=== PATIENT | female | born 1945 | race Caucasian/White ===

== ENCOUNTER 2016-10-23 06:19 | Inpatient (IN) | payer MEDICARE ==
[2016-10-23] MEDS ORDERED: Albuterol/Ipratropium Neb 3 ML NEB NEB ONE (06:27)
--- NOTE | 2016-10-23 06:27 | EDPRACDOC ---
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 Mode Of Arrival: Ambulance Home Medications: Home Medications Albuterol Sulfate [Proair Hfa] 2 puff INH Q4H PRN 11/09/14 Fluticasone/Salmeterol [Advair 500-50 Diskus] 1 inh INH BID 11/09/14 Omeprazole [Prilosec] 40 mg PO QAM 11/09/14 Furosemide [Lasix] 40 mg PO DAILY #30 tablet 11/16/14 Montelukast Sodium [Singulair] 10 mg PO HS #30 tablet 11/16/14 Nitroglycerin Sublingual Tab [NTG (NitroStat Sublingual Tab)] 0.4 mg SL PRN PRN #100 tablet 11/16/14 Diltiazem HCl [Cardizem] 2 tab PO TID 09/17/15 Metoclopramide HCl [Reglan] 1 tab PO QID 09/17/15 Azithromycin [Zithromax Tri-Torrey] 500 mg PO DAILY #3 tablet 09/21/15 Cefdinir [Omnicef] 300 mg PO BID #10 cap 09/21/15 Lisinopril [Prinivil] 10 mg PO DAILY #30 tablet 09/21/15 Lorazepam [Ativan] 0.5 mg PO TID PRN #30 tablet 09/21/15 Prednisone [Sterapred DS 10 mg/12 day pack] 48 tab PO DIR #1 pack 09/21/15 Probiotic Blend [Wendie Q] 1 tab PO BIDLS #60 tablet 09/21/15 Varenicline [Chantix] 1 mg PO BID #60 tablet 09/21/15 Allergies/Adverse Reactions: Allergies Allergy/AdvReac Type Severity Reaction Status Date / Time No Known Allergies Allergy Verified 09/18/15 00:37 - History of Present Illness Onset: COUPLE OF DAYS Relevant History: Reports: COPD (SEVERE), Heart Failure (CHF) Cough: Reports: Productive, Green Rhinorrhea: Reports: Clear Ear Symptoms: Reports: Earache SOB Worsens with: Reports: Exertion, Movement, Anxiety, Coughing SOB Improves with: Reports: Sitting up, Inhaler, Rest Recently treated infections:: Denies: Otitis media, Pneumonia, URI Associated Signs and symptoms: Reports: Cough, Fever, Nasal Symptoms, Myalgia - Treatment Prior to ED Arrival Reported SOLUMEDROL, ALB, CPAP ED Past Medical History - History Reviewed Yes Nurses notes reviewed and agree except as marked - Patient Medical History Cardiac History: Reports: Hypertension, Congestive Heart Failure, Heart Attack ( 5 years ago) Respiratory History: Reports: Asthma, COPD GI/ History: Reports: Gastroesophageal Reflux Psychological History: Reports: Anxiety. Denies: Depression, Bipolar Disorder, Substance Use Disorder - Family Medical History Reports: Hypertension (mother and father), Cancer (GRANDMOTHER,TWIN SISTER- BREAST CA), Cardiac Disorders (Father). Denies: Diabetes - Social Medical History Smoking Status: Light tobacco smoker (less than 5/day) (formerly heavy tobacco use) Social History: Denies: Substance Use Disorder ETOH: None Substance Abuse: None Lives In: Home EDM Review of Systems - Review of Systems ROS Negative Except as Marked: Yes All systems reviewed and were negative except as marked ROS Unobtainable: Yes Review of systems cannot be obtained due to the patient's medical condition (DIFFICULT GIVEN SIGNIF RESP DISTRESS) - Physical Exam Constitutional: Alert, Cachectic (APPEARS OLDER THAN STATED AGE), Distress, Restless, Other (ON CPAP EMS) Last recorded Vital Signs: Oxygen Pulse Oxygen Saturation O2 Device Oxygen Flow Rate Fraction of Inspired Oxygen ( FIO2) - HEENT Head: Normal Eye Exam: Normal Oropharynx: Normal. negative: Membranes Dry Neck: Normal. negative: Edema - Respiratory/Cardiovascular Respiratory: Accessory Muscle Use, Diminished, Rhonchi, Tachypnea, Wheezes, Other (ON CPAP) Cardiovascular: Tachycardia. negative: Diastolic murmur, Systolic murmur - GI Auscultation: Normal Palpation: Normal Tenderness: Non tender - Musculoskeletal Back: Normal Extremities: negative: Pedal Edema - Integumentary Skin: Warm, Diaphoretic - Neurologic Memory Impaired: Normal Motor Function: Normal Mood Description: Anxious, Appropriate Thought: Coherent ED SOB MDM - Re-evaluation Re-evaluation 3 Re-evaluation Time: 07:07 (BP DOWN, RESP STATUS IMPROVED, NO CURRENT INDICATION FOR INTUBATION) - Results Result Diagrams: 10/23/16 06:25 10/23/16 06:25 - EKG EKG #1 EKG Time: 06:25 -: Yes EKG interpreted by me Rate: bpm: 141 Elizabeth: Normal Rhythm: ST Block: None Hypertrophy: None ST: Normal ED Critical Care Note - Critical Care Note Total Time (mins): 35 Comments: Due to the presence of and / or the risk of deterioration, my attendance to this patient required critical care time, including assessment/reassessment, documentation, ordering and interpreting ancillary studies, discussion with ED staff and consultants,patient and family, and excludes time spent on separately billable procedures. 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
[2016-10-23 06:36] LABS: ALLEN'S TEST PASS; BEb 8.5 (+/- 2)
[2016-10-23 06:37] LABS: ABG Draw Site Left Radial
[2016-10-23 06:56] LABS: AUTOMATED BASOPHIL 0.3 % (0-2); AUTOMATED EOSINOPHIL 0.3 % (0-5); AUTOMATED LYMPH 16.8 % (17-44); AUTOMATED MONOCYTE 14.2 % (3-10); AUTOMATED NEUTROPHIL 68.4 % (45-76); MPV 7.9 fL (7.4-10.4)
[2016-10-23 06:59] LABS: BLOOD UREA NITROGEN 12 MG/DL (7-17); CALCIUM 9.1 MG/DL (8.4-10.2); CALCULATED OSMOLALITY 243 MOs/Kg (270-290); CHLORIDE 83 mEq/L (98-107); CPK TOTAL WITH POSSIBLE MB 83 IU/L (30-134); GLUCOSE 118 MG/DL (70-99); SODIUM LEVEL 125 mEq/L (137-146); TOTAL PROTEIN 7.1 G/DL (6.3-8.2)
[2016-10-23 07:02] LABS: PARTIAL THROMB. TIME 29.6 SEC (22-35)
[2016-10-23] MEDS ORDERED: ACETAMINOPHEN 325 MG/TAB TABLET PO ONE (07:08)
--- NOTE | 2016-10-23 07:14 | DIRPT ---
CLINICAL DATA: Patient with history of sepsis. Shortness of breath. EXAM: PORTABLE CHEST 1 VIEW COMPARISON: Chest radiograph 09/20/2015. FINDINGS: Multiple monitoring leads overlie the patient. Catheter tubing projects over the right dinh thorax, likely external to the patient. Stable cardiac and mediastinal contours. No large area of pulmonary consolidation. Upper lung emphysematous change. Bibasilar bronchovascular crowding versus atelectasis. No pleural effusion or pneumothorax. IMPRESSION: Catheter tubing overlying the right dinh thorax, likely external to the patient. Recommend clinical correlation. No acute cardiopulmonary process. Electronically Signed By: Bal Martin M.D. On: 10/23/2016 07:12
[2016-10-23] MEDS ORDERED: AZITHROMYCIN 500 MG in D5W 250 ML IV ONE (07:16)
[2016-10-23] MEDS ORDERED: CEFTRIAXONE 1 GM in D5W 100 ML IV ONE (07:16)
[2016-10-23] MEDS ORDERED: METOCLOPRAMIDE 10 MG/2 ML VIAL IV PRN (07:31)
[2016-10-23] MEDS ORDERED: BISACODYL 10 MG SUPP PR PRN (07:31)
[2016-10-23] MEDS ORDERED: ACETAMINOPHEN 325 MG/TAB TABLET PO PRN (07:31)
[2016-10-23] MEDS ORDERED: SENNA CONCENTRATE TAB PO PRN (07:31)
[2016-10-23] MEDS ORDERED: ACETAMINOPHEN 325 MG SUPP PR PRN (07:31)
[2016-10-23] MEDS ORDERED: TUSSIONEX 5 ML ORAL SYRINGE PO PRN (07:31)
[2016-10-23] MEDS ORDERED: PROMETHAZINE 25 MG/ML VIAL IV PRN (07:31)
[2016-10-23] MEDS ORDERED: BENZONATATE 100 MG PERLES PO PRN (07:31)
[2016-10-23] MEDS ORDERED: ACETAMINOPHEN 325 MG SUPP PR ONE (07:47)
[2016-10-23] MEDS ORDERED: ACETAMINOPHEN 650 MG SUPP PR ONE (07:47)
--- NOTE | 2016-10-23 08:41 | HISTPHYS ---
- Chief Complaint Shortness of breath coughing up white material increased temperature and shaking chills all starting Saturday 3 days ago - History of Present Illness Patient very pleasant 71-year-old white female lives at home with her who comes into the emergency room today with increased shortness breath over the past 3 days complaining of chills and was unable to sleep last night due to shortness breath. She also has a history of diastolic CHF and has to sleep on 3 pillows. Unfortunately she still smokes cigarettes and states that still smoke a pack a month. She tells me that the Chantix is been the most effective item she has used to help her quit smoking. She has not taking any Chantix for several months. She has a history of diastolic CHF in addition to severe his COPD. - Medical History Cardiac History: Reports: Hypertension, Congestive Heart Failure, Heart Attack ( 5 years ago) Respiratory History: Reports: Asthma, COPD GI/ History: Reports: Gastroesophageal Reflux Musculoskeletal History: Reports: No Significant History Systemic History: Reports: No Significant History Neurological History: Reports: No Significant History Psychological History: Reports: Anxiety. Denies: Depression, Bipolar Disorder, Substance Use Disorder - Surgical History Reports: No Significant History - Medictions/Allergies Allergies No Known Allergies Allergy (Verified 10/23/16 07:25) Current Medication List: Reviewed Home Medications Albuterol Sulfate [Proair Hfa] 2 puff INH Q4H PRN 11/09/14 Fluticasone/Salmeterol [Advair 500-50 Diskus] 1 puff INH BID 11/09/14 Omeprazole [Prilosec] 40 mg PO QAM 11/09/14 Furosemide [Lasix] 40 mg PO DAILY #30 tablet 11/16/14 Montelukast Sodium [Singulair] 10 mg PO HS #30 tablet 11/16/14 Metoclopramide HCl [Reglan] 10 mg PO QID 09/17/15 Lisinopril [Prinivil] 10 mg PO DAILY #30 tablet 09/21/15 Lorazepam [Ativan] 0.5 mg PO TID PRN #30 tablet 09/21/15 Albuterol/Ipratropium Neb [Duoneb] 3 ml NEB QID 10/23/16 Diltiazem HCl [Cardizem] 60 mg PO TID 10/23/16 Nebulizer [Erapid Nebulizer] 1 each MC .UNKNOWN 10/23/16 Nitroglycerin Sublingual Tab [NTG (NitroStat Sublingual Tab)] 0.4 mg SL Q5MX3 PRN 10/23/16 Prednisone [Deltasone, Orasone] 10 mg PO . DIR SEE COMMENTS PRN 10/23/16 - Family History Reports: Hypertension (mother and father), Cancer (GRANDMOTHER,TWIN SISTER- BREAST CA), Cardiac Disorders (Father). Denies: Diabetes - Social History Travel Outside of [place] in the Last 3 Months?: No Lives: with Spouse Smoking Status: Light tobacco smoker (less than 5/day) (formerly heavy tobacco use) Social History: Denies: Alcohol Use, Substance Use Disorder - Review of Systems Constitutional: Chills, Fever, Fatigue, Weakness Eyes: No Symptoms Reported (No blurry vision, visual changes, eye pain, or eye redness.) Ears: No Symptoms Reported Nose: No Symptoms Reported (No nasal discharge/congestion or bleeding) Mouth: No Symptoms Reported (No oropharyngeal lesions or erythema) Throat/Neck: No Symptoms Reported Respiratory: Cough, Shortness of Breath, Wheezing, Sputum (White sputum) Cardiovascular: Edema (Trace), Orthopnea, PND. negative: Cyanosis Gastrointestinal: Heartburn Genitourinary: No Symptoms Reported (No dysuria or hematuria.) Neurological: Weakness Musculoskeletal:: No Symptoms Reported Integumentary: No Symptoms Reported (no rashes or lesions) Allergic/Immunologic: No Symptoms Reported (no rashes or lesions) Hematologic: No Symptoms Reported (No chronic anemia, bleeding, or easy bruising.), Other (Lymphatics- no lymph node swelling or pain.) Endocrine: No Symptoms Reported (No thyroid issues, polyuria, or polydipsia.) Psychiatric: Anxiety - Physical Exam Vital Signs: Initial Vitals Respiratory Rate 34 H 10/23/16 06:22 Pulse Oxygen Saturation 90 L 10/23/16 06:22 Constitutional: Alert, Distress, Restless Oriented to: Time, Person, Place - HEENT Head: Normal (normocephalic, atraumatic.), Other (No cervical lymphadenopathy. No supraclavicular lymphadenopathy. Neck: No palpable mass, supple , trachea midline.) Eye: Normal (pupils equal, reactive to light, and round; EOMI, Sclera white) Oropharynx: Normal (Pharynx: Moist without exudate,Gums-no swelling, No oropharyngeal lesions or erythema, Mucous membranes are dry.) ENT EAC: Normal (No oropharyngeal lesions or erythema. Mucous membranes are dry. ) TMJ: Normal Nose: No Symptoms Reported (septum midline, Nares patent, without discharge or bleeding.) Respiratory: Diminished, Tachypnea, Wheezes. negative: Rales, Rhonchi Cardiovascular: Tachycardia. negative: Irregular, Diastolic murmur, Systolic murmur, Gallop/S3, Gallop/S4 - GI Auscultation: Normal (normal active sounds) Palpation: Normal (Soft,non distended,nontender. No hepatosplenomegaly.) Tenderness: Non tender (No rebound or guarding) Patel's Sign: Negative - Musculoskeletal Back: Normal (Non-Tender) Extremities: Normal (Normal tone, DP pulses 2+ bilaterally, No cyanosis or edema bilaterally, FROM bilaterally.) Spine: non-tender - Integumentary Skin: Normal (Clean, dry, and intact. No rashes. No lesions.) Lymphatics: Normal (No cervical lymphadenopathy. No supraclavicular lymphadenopathy.) - Neurologic Memory Impaired: Normal Motor Function: negative: Normal (Generalized weakness) Cranial Nerve: Normal (CN II-XII intact sensation, strength 5/5) Cerebellar: Normal. negative: Ataxia, Past-Pointing, Tremor Mood Description: Normal (Fully oriented. Normal and appropriate affect.) Thought: Coherent Perception: Normal (Normal and appropriate affect.) - Focused CV Perfusion Exam Vital Signs: Last Vital Signs Temp 100 F 10/23/16 06:23 Pulse 125 H 10/23/16 08:12 Resp 22 10/23/16 08:12 BP 138/88 10/23/16 08:12 Pulse Ox 92 10/23/16 08:12 - Lab Results 10/23/16 06:25 10/23/16 06:25 Laboratory Results - last 24 hr 10/23/16 10/23/16 10/23/16 06:25 06:25 06:25 WBC 8.6 RBC 4.45 Hgb 12.5 Hct 38.2 MCV 86 MCH 28.1 MCHC 32.7 L RDW 13.6 Plt Count 370 MPV 7.9 Neut % (Auto) 68.4 Lymph % (Auto) 16.8 L [place] % (Auto) 14.2 H Eos % (Auto) 0.3 Baso % (Auto) 0.3 Absolute Neuts (auto) 5.85 Absolute Lymphs (auto) 1.38 PT INR APTT Puncture Site pH pCO2 pO2 HCO3 Total CO2 Base Excess Vent Mode FiO2 % Specimen Drawn By Sodium 125 L Potassium 4.5 Chloride 83 L Carbon Dioxide 37 H Anion Gap 10 BUN 12 Creatinine 0.40 L Estimated GFR (MDRD) > 60 Glucose 118 H Calculated Osmolality 243 L Lactic Acid 0.7 Calcium 9.1 Total Bilirubin 0.4 AST 24 ALT 27 Alkaline Phosphatase 97 Creatine Kinase 83 Troponin I 0.01 Cpe-U-Fetdlexactz Pept 301 Total Protein 7.1 Albumin 4.1 10/23/16 10/23/16 06:25 06:33 WBC RBC Hgb Hct MCV MCH MCHC RDW Plt Count MPV Neut % (Auto) Lymph % (Auto) [place] % (Auto) Eos % (Auto) Baso % (Auto) Absolute Neuts (auto) Absolute Lymphs (auto) PT 10.0 INR 1.0 APTT 29.6 Puncture Site Left radial pH 7.280 L pCO2 82.0 H* pO2 81.0 HCO3 38.5 H Total CO2 41.0 H Base Excess 8.5 H Vent Mode Bipap 12/6 FiO2 % 40 Specimen Drawn By Rakma Sodium Potassium Chloride Carbon Dioxide Anion Gap BUN Creatinine Estimated GFR (MDRD) Glucose Calculated Osmolality Lactic Acid Calcium Total Bilirubin AST ALT Alkaline Phosphatase Creatine Kinase Troponin I [id number] Pept Total Protein Albumin - Diagnostic Findings Chest x-ray shows emphysema and bibasilar atelectasis - Assessment (1) Acute respiratory failure J96.00 - ACUTE RESPIRATORY FAILURE, UNSP W HYPOXIA OR HYPERCAPNIA Acute Present on Admission: Yes Qualifiers: Respiratory failure complication: hypercapnia Qualified Code(s): J96.02 - Acute respiratory failure with hypercapnia Acute respiratory failure with hypercarbia requiring BiPAP. IV steroid Zosyn Levaquin as she had Rocephin and Zithromax September with her last COPD flare 1 month & 2 days ago. Solu-Medrol and intensive respiratory therapy will be necessary. Will need to wean her FiO2 to an O2 sat closer to 88%. (2) Community acquired bacterial pneumonia J15.9 - UNSPECIFIED BACTERIAL PNEUMONIA Acute Present on Admission: Yes Zosyn Levaquin ordered with probiotic. (3) Acute exacerbation of chronic obstructive airways disease J44.1 - CHRONIC OBSTRUCTIVE PULMONARY DISEASE W (ACUTE) EXACERBATION Acute Present on Admission: Yes IV antibiotics probiotics and steroids are ordered with nebulizer therapy. (4) Diastolic CHF I50.30 - UNSPECIFIED DIASTOLIC (CONGESTIVE) HEART FAILURE Chronic Present on Admission: Yes Qualifiers: Congestive heart failure chronicity: chronic Qualified Code(s): I50.32 - Chronic diastolic (congestive) heart failure She is on oral diuretic compensated continue current medication. (5) Hypertension I10 - ESSENTIAL (PRIMARY) HYPERTENSION Chronic Present on Admission: Yes Qualifiers: Hypertension type: essential hypertension Qualified Code(s): I10 - Essential (primary) hypertension Stable continue current medication KATERINE-inhibitor, Cardizem with Lasix (6) Hyponatremia E87.1 - HYPO-OSMOLALITY AND HYPONATREMIA Acute Present on Admission: Yes (7) Leukocytosis D72.829 - ELEVATED WHITE BLOOD CELL COUNT, UNSPECIFIED Acute Qualifiers: Leukocytosis type: bandemia Qualified Code(s): D72.825 - Bandemia (8) Tobacco abuse Z72.0 - TOBACCO USE Acute Unfortunately she continues to smoke although claims to only be smoking a pack cigarettes a month. I have advised her once again she needs to stop and will discuss this further during hospitalization when she is more receptive and less critically ill. (9) Gastroesophageal reflux disease K21.9 - GASTRO-ESOPHAGEAL REFLUX DISEASE WITHOUT ESOPHAGITIS Chronic Present on Admission: Yes Qualifiers: Esophagitis presence: esophagitis presence not specified Qualified Code(s) : K21.9 - Gastro-esophageal reflux disease without esophagitis Proton pump inhibition twice daily (10) Acute respiratory distress R06.00 - DYSPNEA, UNSPECIFIED Acute Present on Admission: Yes Acutely short of breath today and adjustments made in her BiPAP according to her needs. IV medications ordered. - Plan Due to the presence of and / or the risk of deterioration, my attendance to this patient required critical care time, including assessment/reassessment, documentation, ordering and interpreting ancillary studies, discussion with staff and consultants,patient and family, and excludes time spent on separately billable procedures. This individual is critically ill and in danger of dying. Case Care Discussed with: Patient, Nursing Staff, Resource Management Total Time: Critical care time spent 1 hour and 22 minutes Critical Care: Yes Code: 291 (292)
[2016-10-23] MEDS: Albuterol/Ipratropium Neb 3 ML NEB NEB SCH ×3 (08:57→19:58)
[2016-10-23] MEDS ORDERED: NITROGLYCERINE 0.4 MG TAB SL PRN (09:19)
[2016-10-23] MEDS ORDERED: Non-Formulary Medication ITEM (Omeprazole [Prilosec] 40 MG) PO SCH (09:30)
[2016-10-23] MEDS ORDERED: FLUTICASONE/SALMETEROL 500/50 DISKUS INH SCH (10:00)
[2016-10-23] MEDS: Levofloxacin 750 mg/150 ml D5W 750 MG/150 ML RTU IV SCH (11:05)
[2016-10-23] MEDS: FUROSEMIDE 40 MG TAB PO SCH (11:05)
[2016-10-23] MEDS: NS/KCl 20 mEq 1,000 ML IV SCH (11:05)
[2016-10-23] MEDS: METHYLPREDNISOLONE 125 MG/2 ML VIAL IV SCH ×2 (11:06→17:21)
[2016-10-23] MEDS: PANTOPRAZOLE 40 MG TAB PO SCH (11:06)
[2016-10-23] MEDS: LISINOPRIL 10 MG TAB PO SCH (11:06)
[2016-10-23] MEDS: METOCLOPRAMIDE 10 MG TAB PO SCH ×3 (11:07→20:45)
[2016-10-23] MEDS: PROBIOTIC BLEND TAB PO SCH ×2 (11:07→17:21)
[2016-10-23] MEDS: PIPERACILLIN AND TAZOBACTAM 4.5 GM in D5W 100 ML IV SCH ×2 (13:00→17:21)
[2016-10-23 13:28] LABS: LEUKOCYTES/URINE NEG (NEGATIVE); NITRITE/URINE NEG (NEGATIVE); URINE OCCULT BLOOD NEG (NEG/TRACE)
[2016-10-23] MEDS ORDERED: Vaccine Screening Complete SCH (14:00)
[2016-10-23] MEDS: DILTIAZEM 60 MG TAB PO SCH ×2 (15:09→20:45)
[2016-10-23] MEDS: ENOXAPARIN 40 MG/0.4 ML PFS SQ SCH (17:21)
[2016-10-23] MEDS: LORAZEPAM 0.5 MG TAB PO PRN (17:38)
[2016-10-23] MEDS: FLUTICASONE/SALMETEROL 500/50 DISKUS INH SCH (19:59)
[2016-10-23] MEDS: MONTELUKAST SODIUM 10 MG TAB PO SCH (20:44)
[2016-10-23] MEDS: ZOLPIDEM TARTRATE 5 MG TAB PO PRN (20:51)
[2016-10-24] MEDS: Albuterol/Ipratropium Neb 3 ML NEB NEB SCH ×4 (01:04→20:11)
[2016-10-24] MEDS: METHYLPREDNISOLONE 125 MG/2 ML VIAL IV SCH ×3 (01:11→17:33)
[2016-10-24] MEDS: PIPERACILLIN AND TAZOBACTAM 4.5 GM in D5W 100 ML IV SCH ×3 (01:12→17:32)
[2016-10-24] MEDS: PANTOPRAZOLE 40 MG TAB PO SCH (04:52)
[2016-10-24] MEDS: DILTIAZEM 60 MG TAB PO SCH ×3 (04:52→19:53)
[2016-10-24] MEDS: LORAZEPAM 0.5 MG TAB PO PRN (04:54)
[2016-10-24] MEDS: ALBUTEROL 0.083% 3 ML NEB NEB PRN (05:04)
[2016-10-24 05:36] LABS: AUTOMATED BASOPHIL 0.2 % (0-2); AUTOMATED EOSINOPHIL 0.1 % (0-5); AUTOMATED LYMPH 10.1 % (17-44); AUTOMATED NEUTROPHIL 79.6 % (45-76); MPV 7.6 fL (7.4-10.4)
[2016-10-24] MEDS: NS/KCl 20 mEq 1,000 ML IV SCH ×2 (08:02→17:31)
[2016-10-24] MEDS: LISINOPRIL 10 MG TAB PO SCH (08:04)
[2016-10-24] MEDS: ACETAZOLAMIDE 250 MG TAB PO SCH (08:04)
[2016-10-24] MEDS: METOCLOPRAMIDE 10 MG TAB PO SCH ×4 (08:04→19:53)
[2016-10-24] MEDS: Levofloxacin 750 mg/150 ml D5W 750 MG/150 ML RTU IV SCH (08:05)
[2016-10-24] MEDS: FUROSEMIDE 40 MG TAB PO SCH (08:05)
[2016-10-24] MEDS: FLUTICASONE/SALMETEROL 500/50 DISKUS INH SCH ×2 (08:29→20:12)
--- NOTE | 2016-10-24 09:59 | GENMEDPROG ---
Chief Complaint: sob better Notes Reviewed: Yes Events from last night noted and discussed with Clinical Staff Current Medication List: Reviewed DVT Prophylaxis: Yes - Physical Examination Vital Signs and I&O: Last Vital Signs Temp 97.6 F 10/24/16 07:28 Pulse 91 10/24/16 08:00 Resp 20 10/24/16 08:00 BP 128/60 10/24/16 07:28 Pulse Ox 95 10/24/16 08:00 Oxygen Pulse Oxygen Saturation 95 O2 Device Nasal Cannula Oxygen Flow Rate 2 Fraction of Inspired Oxygen ( 40 FIO2) Intake & Output 10/21/16 10/22/16 10/23/16 10/24/16 23:59 23:59 23:59 23:59 Intake Total 830 280 Output Total 700 800 Balance 130 -520 Patient's weight 71.94 kg 73.119 kg General: Alert, Oriented x3, No acute distress, Well appearing, Well nourished HEENT: Normal (Normocephalic, atraumatic;EOMI.Sclera white, Nares patent, without discharge or bleeding. No oropharyngeal lesions or erythema. Mucous membranes are dry.) Neck: Non-tender, Full range of motion, Normal Trachea alignment, Normal inspection (No cervical lymphadenopathy. No supraclavicular lymphadenopathy.), No Masses palpable, Supple Lymphatics: Normal (No cervical lymphadenopathy. No supraclavicular lymphadenopathy.) Respiratory: Diminished, Rhonchi, Tachypnea, Wheezes (occas). negative: Rales Cardiovascular: Regular rate and rhythm (No bradycardia or tachycardia), Normal S1, No Gallops,Rubs/Murmurs, Normal S2, Good Pedal Pulses (DP pulses 2+ bilaterally) GI: Normal bowel sounds (normal active sounds), Soft (non-distended), Non tender , No hepatospenomegaly, No masses Extremities/Musculoskeletal: Normal pulses (DP pulses 2+ bilaterally) Skin: Warm,Dry and Intact, No rashes, No significant lesion Neurological: Strength at 5/5 X4 ext (Motor 5/5 throughout.), Normal tone, Cranial nerves 3-12 NL ( 2-12 grossly intact.) Lab/DI/Studies Reviewed: 10/24/16 05:20 10/23/16 06:25 Laboratory Results - last 24 hr 10/24/16 05:20 WBC 4.5 RBC 4.30 Hgb 12.0 Hct 36.2 MCV 84 MCH 27.9 MCHC 33.1 RDW 13.3 Plt Count 321 MPV 7.6 Neut % (Auto) 79.6 H Lymph % (Auto) 10.1 L [place] % (Auto) 10.0 Eos % (Auto) 0.1 Baso % (Auto) 0.2 Absolute Neuts (auto) 3.56 Absolute Lymphs (auto) 0.45 L - Assessment (1) Acute respiratory failure Acute J96.00 - ACUTE RESPIRATORY FAILURE, UNSP W HYPOXIA OR HYPERCAPNIA Qualifiers: Respiratory failure complication: hypercapnia Qualified Code(s): J96.02 - Acute respiratory failure with hypercapnia Comment/Plan: Acute respiratory failure with hypercarbia requiring BiPAP. IV steroid Zosyn Levaquin as she had Rocephin and Zithromax September with her last COPD flare 1 month & 2 days ago. Solu-Medrol and intensive respiratory therapy will be necessary. Will need to wean her FiO2 to an O2 sat closer to 88%. (2) Community acquired bacterial pneumonia Acute J15.9 - UNSPECIFIED BACTERIAL PNEUMONIA Comment/Plan: Zosyn Levaquin ordered with probiotic. (3) Acute exacerbation of chronic obstructive airways disease Acute J44.1 - CHRONIC OBSTRUCTIVE PULMONARY DISEASE W (ACUTE) EXACERBATION Comment/Plan: IV antibiotics probiotics and steroids are ordered with nebulizer therapy. (4) Diastolic CHF Chronic I50.30 - UNSPECIFIED DIASTOLIC (CONGESTIVE) HEART FAILURE Qualifiers: Congestive heart failure chronicity: chronic Qualified Code(s): I50.32 - Chronic diastolic (congestive) heart failure Comment/Plan: She is on oral diuretic compensated continue current medication. (5) Hypertension Chronic I10 - ESSENTIAL (PRIMARY) HYPERTENSION Qualifiers: Hypertension type: essential hypertension Qualified Code(s): I10 - Essential (primary) hypertension Comment/Plan: Stable continue current medication KATERINE-inhibitor, Cardizem with Lasix (6) Hyponatremia Acute E87.1 - HYPO-OSMOLALITY AND HYPONATREMIA (7) Leukocytosis Acute D72.829 - ELEVATED WHITE BLOOD CELL COUNT, UNSPECIFIED Qualifiers: Leukocytosis type: bandemia Qualified Code(s): D72.825 - Bandemia (8) Tobacco abuse Acute Z72.0 - TOBACCO USE Comment/Plan: Unfortunately she continues to smoke although claims to only be smoking a pack cigarettes a month. I have advised her once again she needs to stop and will discuss this further during hospitalization when she is more receptive and less critically ill. (9) Gastroesophageal reflux disease Chronic K21.9 - GASTRO-ESOPHAGEAL REFLUX DISEASE WITHOUT ESOPHAGITIS Qualifiers: Esophagitis presence: esophagitis presence not specified Qualified Code(s) : K21.9 - Gastro-esophageal reflux disease without esophagitis Comment/Plan: Proton pump inhibition twice daily (10) Acute respiratory distress Acute R06.00 - DYSPNEA, UNSPECIFIED Comment/Plan: Acutely short of breath today and adjustments made in her BiPAP according to her needs. IV medications ordered. Case Care Discussed with: Patient, Nursing Staff, Resource Management Education/Counseling Given To: Patient, Family Member Education/Counseling Given Regarding: Diagnosis Total Time: 37 min Critical Care: No
[2016-10-24] MEDS: PROBIOTIC BLEND TAB PO SCH ×2 (12:20→17:32)
[2016-10-24] MEDS: ENOXAPARIN 40 MG/0.4 ML PFS SQ SCH (17:33)
[2016-10-24] MEDS: MONTELUKAST SODIUM 10 MG TAB PO SCH (19:53)
[2016-10-24] MEDS: ZOLPIDEM TARTRATE 5 MG TAB PO PRN (19:58)
[2016-10-25] MEDS: NS/KCl 20 mEq 1,000 ML IV SCH ×2 (01:32→04:57)
[2016-10-25] MEDS: METHYLPREDNISOLONE 125 MG/2 ML VIAL IV SCH ×4 (01:34→20:10)
[2016-10-25] MEDS: PIPERACILLIN AND TAZOBACTAM 4.5 GM in D5W 100 ML IV SCH ×4 (01:34→21:28)
[2016-10-25] MEDS: Albuterol/Ipratropium Neb 3 ML NEB NEB SCH ×4 (01:43→19:41)
[2016-10-25 04:27] LABS: ALLEN'S TEST PASS; BEb 13.8 (+/- 2); TCO2 49.9 MMOL/L (23-27)
[2016-10-25 04:29] LABS: ABG Draw Site Right Radial
[2016-10-25 04:30] LABS: BI-PAP 14/7 cm H2O
[2016-10-25] MEDS: PANTOPRAZOLE 40 MG TAB PO SCH (05:00)
[2016-10-25] MEDS: DILTIAZEM 60 MG TAB PO SCH ×3 (05:00→20:09)
[2016-10-25 05:56] LABS: BLOOD UREA NITROGEN 11 MG/DL (7-17); CALCIUM 9.2 MG/DL (8.4-10.2); CALCULATED OSMOLALITY 251 MOs/Kg (270-290); CHLORIDE 86 mEq/L (98-107); GLUCOSE 147 MG/DL (70-99); SODIUM LEVEL 129 mEq/L (137-146)
[2016-10-25 06:29] LABS: AUTOMATED BASOPHIL 0.1 % (0-2); AUTOMATED LYMPH 6.2 % (17-44); AUTOMATED MONOCYTE 9.7 % (3-10); MPV 7.9 fL (7.4-10.4)
[2016-10-25] MEDS: FLUTICASONE/SALMETEROL 500/50 DISKUS INH SCH ×2 (08:37→19:43)
[2016-10-25] MEDS: Levofloxacin 750 mg/150 ml D5W 750 MG/150 ML RTU IV SCH (09:17)
[2016-10-25] MEDS: FUROSEMIDE 40 MG TAB PO SCH (09:20)
[2016-10-25] MEDS: METOCLOPRAMIDE 10 MG TAB PO SCH ×4 (09:20→20:09)
[2016-10-25] MEDS: PROBIOTIC BLEND TAB PO SCH ×2 (09:20→17:06)
[2016-10-25] MEDS: LISINOPRIL 10 MG TAB PO SCH (09:22)
[2016-10-25] MEDS: LORAZEPAM 0.5 MG TAB PO PRN (11:42)
[2016-10-25] MEDS ORDERED: DILTIAZEM 25 MG/5 ML VIAL IV ONE (12:30)
[2016-10-25] MEDS ORDERED: ACETAZOLAMIDE 500 MG IV ONE (12:30)
[2016-10-25] MEDS ORDERED: WATER 10 ML ONE (13:06)
[2016-10-25] MEDS ORDERED: STERILE WATER FOR INJ IV ONE (14:00)
[2016-10-25] MEDS: FUROSEMIDE 40 MG/4 ML VIAL IV SCH ×2 (15:21→21:28)
[2016-10-25 15:50] LABS: LEUKOCYTES/URINE NEG (NEGATIVE); NITRITE/URINE NEG (NEGATIVE); URINE OCCULT BLOOD NEG (NEG/TRACE); WBC/URINE 0-2 (0-5)
[2016-10-25] MEDS ORDERED: LORAZEPAM 2 MG/ML VIAL IV ONE (16:15)
--- NOTE | 2016-10-25 16:25 | DIRPT ---
CLINICAL DATA: Respiratory distress EXAM: PORTABLE CHEST - 1 VIEW COMPARISON: 10/23/2016 FINDINGS: Cardiac shadow is within normal limits. The lungs are well aerated bilaterally. No focal infiltrate is seen. Persistent aortic calcifications are seen. No bony abnormality is noted. IMPRESSION: No acute abnormality seen. Electronically Signed By: Mateo Solis M.D. On: 10/25/2016 16:22
[2016-10-25 16:26] LABS: ALLEN'S TEST PASS; BEb 17.1 (+/- 2); TCO2 47.2 MMOL/L (23-27)
[2016-10-25 16:31] LABS: ABG Draw Site Left Radial
[2016-10-25 16:32] LABS: MODE BIPAP 18/6 RATE
[2016-10-25] MEDS: ENOXAPARIN 40 MG/0.4 ML PFS SQ SCH (17:07)
--- NOTE | 2016-10-25 20:01 | GENMEDPROG ---
Chief Complaint: Increased shortness breath had to be placed on BiPAP the whole day Notes Reviewed: Yes Events from last night noted and discussed with Clinical Staff Current Medication List: Reviewed Currently: Reports: Cough, GARCIA, SOB DVT Prophylaxis: Yes - Physical Examination Vital Signs and I&O: Last Vital Signs Temp 97.7 F 10/25/16 16:28 Pulse 93 10/25/16 19:43 Resp 26 H 10/25/16 19:43 BP 116/59 L 10/25/16 16:28 Pulse Ox 93 10/25/16 19:43 Oxygen Pulse Oxygen Saturation 93 O2 Device BiPAP Oxygen Flow Rate 2 Fraction of Inspired Oxygen ( 452 FIO2) Intake & Output 10/22/16 10/23/16 10/24/16 10/25/16 23:59 23:59 23:59 23:59 Intake Total 830 1656 1515 Output Total 700 2125 1000 Balance 130 -469 515 Patient's weight 71.94 kg 73.119 kg 72.393 kg General: Alert, Oriented x3, No acute distress, Well appearing, Well nourished HEENT: Normal (Normocephalic, atraumatic;EOMI.Sclera white, Nares patent, without discharge or bleeding. No oropharyngeal lesions or erythema. Mucous membranes are dry.) Neck: Non-tender, Full range of motion, Normal Trachea alignment, Normal inspection (No cervical lymphadenopathy. No supraclavicular lymphadenopathy.), No Masses palpable, Supple Lymphatics: Normal (No cervical lymphadenopathy. No supraclavicular lymphadenopathy.) Respiratory: Diminished, Rhonchi, Tachypnea, Wheezes (occas). negative: Rales Cardiovascular: Regular rate and rhythm (No bradycardia or tachycardia), Normal S1, No Gallops,Rubs/Murmurs, Normal S2, Good Pedal Pulses (DP pulses 2+ bilaterally) GI: Normal bowel sounds (normal active sounds), Soft (non-distended), Non tender , No hepatospenomegaly, No masses Extremities/Musculoskeletal: Normal pulses (DP pulses 2+ bilaterally) Skin: Warm,Dry and Intact, No rashes, No significant lesion Neurological: Strength at 5/5 X4 ext (Motor 5/5 throughout.), Normal tone, Cranial nerves 3-12 NL ( 2-12 grossly intact.) Psych/Mental Status: Appropriate, Normal Affect Lab/DI/Studies Reviewed: 10/25/16 05:20 10/25/16 05:20 Laboratory Results - last 24 hr 10/25/16 10/25/16 10/25/16 04:25 05:20 05:20 WBC 8.3 RBC 4.29 Hgb 11.9 L Hct 36.8 MCV 86 MCH 27.7 MCHC 32.4 L RDW 13.8 Plt Count 344 MPV 7.9 Neut % (Auto) 84.0 H Lymph % (Auto) 6.2 L Rich % (Auto) 9.7 Eos % (Auto) 0.0 Baso % (Auto) 0.1 Absolute Neuts (auto) 6.97 Absolute Lymphs (auto) 0.50 L Puncture Site Right radial pH 7.230 L* pCO2 111.0 H* pO2 74.0 L HCO3 46.5 H Total CO2 49.9 H Base Excess 13.8 H Vent Mode FiO2 % .40 Mode BiPAP 14/7 Specimen Drawn By Baras Sodium 129 L Potassium 4.2 Chloride 86 L Carbon Dioxide 38 H Anion Gap 9 BUN 11 Creatinine 0.60 Estimated GFR (MDRD) > 60 Glucose 147 H Calculated Osmolality 251 L Calcium 9.2 Qrp-C-Hjnivsybhkl Pept Urine Color Urine Clarity Urine pH Ur Specific [place] Urine Protein Urine Glucose (UA) Urine Ketones Urine Occult Blood Urine Nitrite Urine Bilirubin Urine Urobilinogen Ur Leukocyte Esterase Urine RBC Urine WBC Hyaline Casts 10/25/16 10/25/16 10/25/16 05:20 13:07 16:15 WBC RBC Hgb Hct MCV MCH MCHC RDW Plt Count MPV Neut % (Auto) Lymph % (Auto) Rich % (Auto) Eos % (Auto) Baso % (Auto) Absolute Neuts (auto) Absolute Lymphs (auto) Puncture Site Left radial pH 7.430 pCO2 68.0 H* pO2 68.0 L HCO3 45.1 H Total CO2 47.2 H Base Excess 17.1 H Vent Mode Bipap 18/6 FiO2 % 30 Mode BiPAP Specimen Drawn By Aren Sodium Potassium Chloride Carbon Dioxide Anion Gap BUN Creatinine Estimated GFR (MDRD) Glucose Calculated Osmolality Calcium Lxv-G-Xakekhiqjji Pept 959 H Urine Color Pale yellow Urine Clarity Clear Urine pH 6.0 Ur Specific [place] 1.005 Urine Protein Neg Urine Glucose (UA) Neg Urine Ketones Neg Urine Occult Blood Neg Urine Nitrite Neg Urine Bilirubin Neg Urine Urobilinogen <2.0 Ur Leukocyte Esterase Neg Urine RBC 2-5 Urine WBC 0-2 Hyaline Casts 0-2 - Assessment (1) Acute respiratory failure Acute J96.00 - ACUTE RESPIRATORY FAILURE, UNSP W HYPOXIA OR HYPERCAPNIA Qualifiers: Respiratory failure complication: hypercapnia Qualified Code(s): J96.02 - Acute respiratory failure with hypercapnia Comment/Plan: Acute respiratory failure with hypercarbia requiring BiPAP. Feeling little worse today so adjustments made to her medications including intravenous Lasix along with IV steroid Zosyn Levaquin. Solu-Medrol and intensive respiratory therapy will be necessary. Will need to wean her FiO2 to an O2 sat closer to 88%. Diamox was administered for the hypercarbia and anxiety seems to make her more short of breath so Ativan will be increased as well. Chest x-ray fails to show any significant changes. (2) Community acquired bacterial pneumonia Acute J15.9 - UNSPECIFIED BACTERIAL PNEUMONIA Comment/Plan: Zosyn Levaquin ordered with probiotic. (3) Hyponatremia Acute E87.1 - HYPO-OSMOLALITY AND HYPONATREMIA Comment/Plan: Slightly better today. IV fluids and Lasix were administered. (4) Acute exacerbation of chronic obstructive airways disease Acute J44.1 - CHRONIC OBSTRUCTIVE PULMONARY DISEASE W (ACUTE) EXACERBATION Comment/Plan: IV antibiotics probiotics and steroids are ordered with nebulizer therapy. (5) Diastolic CHF Chronic I50.30 - UNSPECIFIED DIASTOLIC (CONGESTIVE) HEART FAILURE Qualifiers: Congestive heart failure chronicity: chronic Qualified Code(s): I50.32 - Chronic diastolic (congestive) heart failure Comment/Plan: She is on oral diuretic compensated continue current medication. (6) Hypertension Chronic I10 - ESSENTIAL (PRIMARY) HYPERTENSION Qualifiers: Hypertension type: essential hypertension Qualified Code(s): I10 - Essential (primary) hypertension Comment/Plan: Stable continue current medication KATERINE-inhibitor, Cardizem with Lasix (7) Leukocytosis Acute D72.829 - ELEVATED WHITE BLOOD CELL COUNT, UNSPECIFIED Qualifiers: Leukocytosis type: bandemia Qualified Code(s): D72.825 - Bandemia (8) Tobacco abuse Acute Z72.0 - TOBACCO USE Comment/Plan: Unfortunately she continues to smoke although claims to only be smoking a pack cigarettes a month. I have advised her once again she needs to stop and will discuss this further during hospitalization when she is more receptive and less critically ill. (9) Gastroesophageal reflux disease Chronic K21.9 - GASTRO-ESOPHAGEAL REFLUX DISEASE WITHOUT ESOPHAGITIS Qualifiers: Esophagitis presence: esophagitis presence not specified Qualified Code(s) : K21.9 - Gastro-esophageal reflux disease without esophagitis Comment/Plan: Proton pump inhibition twice daily (10) Acute respiratory distress Acute R06.00 - DYSPNEA, UNSPECIFIED Comment/Plan: Acutely short of breath today and adjustments made in her BiPAP according to her needs. IV medications ordered. Case Care Discussed with: Patient, Family, Nursing Staff, Resource Management Education/Counseling Given To: Patient, Family Member Education/Counseling Given Regarding: Diagnosis, Treatment Total Time: 39 min Critical Care: No Code: 02243 (12+)
[2016-10-25] MEDS: ZOLPIDEM TARTRATE 5 MG TAB PO PRN (20:10)
[2016-10-25] MEDS: MONTELUKAST SODIUM 10 MG TAB PO SCH (20:10)
[2016-10-26] MEDS: Albuterol/Ipratropium Neb 3 ML NEB NEB SCH ×4 (01:14→20:19)
[2016-10-26] MEDS: METHYLPREDNISOLONE 125 MG/2 ML VIAL IV SCH ×4 (02:09→21:20)
[2016-10-26] MEDS: FUROSEMIDE 40 MG/4 ML VIAL IV SCH ×3 (05:05→21:20)
[2016-10-26] MEDS: DILTIAZEM 60 MG TAB PO SCH ×3 (05:05→21:20)
[2016-10-26] MEDS: PANTOPRAZOLE 40 MG TAB PO SCH (05:05)
[2016-10-26] MEDS: PIPERACILLIN AND TAZOBACTAM 4.5 GM in D5W 100 ML IV SCH ×4 (05:05→21:20)
[2016-10-26 05:24] LABS: AUTOMATED BASOPHIL 1.2 % (0-2); AUTOMATED LYMPH 5.2 % (17-44); AUTOMATED MONOCYTE 10.2 % (3-10); AUTOMATED NEUTROPHIL 83.4 % (45-76); MPV 7.9 fL (7.4-10.4)
[2016-10-26 05:33] LABS: BLOOD UREA NITROGEN 16 MG/DL (7-17); CALCULATED OSMOLALITY 261 MOs/Kg (270-290); CHLORIDE 84 mEq/L (98-107); GLUCOSE 138 MG/DL (70-99); SODIUM LEVEL 134 mEq/L (137-146)
[2016-10-26] MEDS: FLUTICASONE/SALMETEROL 500/50 DISKUS INH SCH ×2 (08:04→20:27)
[2016-10-26] MEDS ORDERED: ACETAZOLAMIDE 500 MG IV SCH (09:00)
[2016-10-26] MEDS ORDERED: STERILE WATER FOR INJ IV SCH (09:00)
[2016-10-26] MEDS: METOCLOPRAMIDE 10 MG TAB PO SCH ×4 (09:02→21:20)
[2016-10-26] MEDS: Levofloxacin 750 mg/150 ml D5W 750 MG/150 ML RTU IV SCH (09:02)
[2016-10-26] MEDS: LISINOPRIL 10 MG TAB PO SCH (09:02)
[2016-10-26] MEDS: ACETAZOLAMIDE 250 MG TAB PO SCH (09:02)
--- NOTE | 2016-10-26 11:04 | GENMEDPROG ---
Chief Complaint: Shortness of breath persists using BiPAP frequently. Notes Reviewed: Yes Events from last night noted and discussed with Clinical Staff Current Medication List: Reviewed Currently: Reports: Cough, GARCIA, SOB DVT Prophylaxis: Yes - Physical Examination Vital Signs and I&O: Last Vital Signs Temp 98.9 F 10/26/16 08:05 Pulse 66 10/26/16 08:05 Resp 18 10/26/16 08:05 BP 111/59 L 10/26/16 08:05 Pulse Ox 98 10/26/16 08:05 Oxygen Pulse Oxygen Saturation 98 O2 Device BiPAP Oxygen Flow Rate 2 Fraction of Inspired Oxygen ( 45 FIO2) Intake & Output 10/23/16 10/24/16 10/25/16 10/26/16 23:59 23:59 23:59 23:59 Intake Total 830 1656 2584 188 Output Total 700 2125 1000 2100 Balance 130 -469 1584 -1912 Patient's weight 71.94 kg 73.119 kg 72.393 kg 71.033 kg General: Alert, Oriented x3, No acute distress, Well appearing, Well nourished HEENT: Normal (Normocephalic, atraumatic;EOMI.Sclera white, Nares patent, without discharge or bleeding. No oropharyngeal lesions or erythema. Mucous membranes are dry.) Neck: Non-tender, Full range of motion, Normal Trachea alignment, Normal inspection (No cervical lymphadenopathy. No supraclavicular lymphadenopathy.), No Masses palpable, Supple Lymphatics: Normal (No cervical lymphadenopathy. No supraclavicular lymphadenopathy.) Respiratory: Diminished, Rhonchi, Tachypnea, Wheezes (occas). negative: Rales Cardiovascular: Regular rate and rhythm (No bradycardia or tachycardia), Normal S1, No Gallops,Rubs/Murmurs, Normal S2, Good Pedal Pulses (DP pulses 2+ bilaterally) GI: Normal bowel sounds (normal active sounds), Soft (non-distended), Non tender , No hepatospenomegaly, No masses Extremities/Musculoskeletal: Normal pulses (DP pulses 2+ bilaterally) Skin: Warm,Dry and Intact, No rashes, No significant lesion Neurological: Strength at 5/5 X4 ext (Motor 5/5 throughout.), Normal tone, Cranial nerves 3-12 NL ( 2-12 grossly intact.) Psych/Mental Status: Appropriate, Normal Affect - Assessment (1) Acute respiratory failure Acute J96.00 - ACUTE RESPIRATORY FAILURE, UNSP W HYPOXIA OR HYPERCAPNIA Qualifiers: Respiratory failure complication: hypercapnia Qualified Code(s): J96.02 - Acute respiratory failure with hypercapnia Comment/Plan: Acute respiratory failure with hypercarbia requiring BiPAP. Feeling little worse today so adjustments made to her medications including intravenous Lasix along with IV steroid Zosyn Levaquin. Solu-Medrol and intensive respiratory therapy will be necessary. Will need to wean her FiO2 to an O2 sat closer to 88%. Diamox was administered for the hypercarbia and anxiety seems to make her more short of breath so Ativan will be increased as well. Chest x-ray fails to show any significant changes. (2) Community acquired bacterial pneumonia Acute J15.9 - UNSPECIFIED BACTERIAL PNEUMONIA Comment/Plan: Zosyn Levaquin ordered with probiotic. (3) Hyponatremia Acute E87.1 - HYPO-OSMOLALITY AND HYPONATREMIA Comment/Plan: Slightly better today. IV fluids and Lasix were administered. (4) Acute exacerbation of chronic obstructive airways disease Acute J44.1 - CHRONIC OBSTRUCTIVE PULMONARY DISEASE W (ACUTE) EXACERBATION Comment/Plan: IV antibiotics probiotics and steroids are ordered with nebulizer therapy. (5) Diastolic CHF Chronic I50.30 - UNSPECIFIED DIASTOLIC (CONGESTIVE) HEART FAILURE Qualifiers: Congestive heart failure chronicity: chronic Qualified Code(s): I50.32 - Chronic diastolic (congestive) heart failure Comment/Plan: She is on oral diuretic compensated continue current medication. (6) Hypertension Chronic I10 - ESSENTIAL (PRIMARY) HYPERTENSION Qualifiers: Hypertension type: essential hypertension Qualified Code(s): I10 - Essential (primary) hypertension Comment/Plan: Stable continue current medication KATERINE-inhibitor, Cardizem with Lasix (7) Leukocytosis Acute D72.829 - ELEVATED WHITE BLOOD CELL COUNT, UNSPECIFIED Qualifiers: Leukocytosis type: bandemia Qualified Code(s): D72.825 - Bandemia (8) Tobacco abuse Acute Z72.0 - TOBACCO USE Comment/Plan: Unfortunately she continues to smoke although claims to only be smoking a pack cigarettes a month. I have advised her once again she needs to stop and will discuss this further during hospitalization when she is more receptive and less critically ill. (9) Gastroesophageal reflux disease Chronic K21.9 - GASTRO-ESOPHAGEAL REFLUX DISEASE WITHOUT ESOPHAGITIS Qualifiers: Esophagitis presence: esophagitis presence not specified Qualified Code(s) : K21.9 - Gastro-esophageal reflux disease without esophagitis Comment/Plan: Proton pump inhibition twice daily (10) Acute respiratory distress Acute R06.00 - DYSPNEA, UNSPECIFIED Comment/Plan: Acutely short of breath today and adjustments made in her BiPAP according to her needs. IV medications ordered. Case Care Discussed with: Patient, Nursing Staff, Resource Management Education/Counseling Given To: Patient, Family Member Education/Counseling Given Regarding: Diagnosis, Treatment Total Time: 38 min Critical Care: No Code: 00531 (12+)
[2016-10-26] MEDS: PROBIOTIC BLEND TAB PO SCH ×2 (13:12→17:47)
[2016-10-26] MEDS: POTASSIUM CHLORIDE 20 MEQ TAB PO SCH ×2 (17:47→21:20)
[2016-10-26] MEDS: ENOXAPARIN 40 MG/0.4 ML PFS SQ SCH (17:47)
[2016-10-26] MEDS: MONTELUKAST SODIUM 10 MG TAB PO SCH (21:20)
[2016-10-27] MEDS: POTASSIUM CHLORIDE 20 MEQ TAB PO SCH ×4 (00:15→15:54)
[2016-10-27] MEDS: Albuterol/Ipratropium Neb 3 ML NEB NEB SCH ×4 (02:23→20:31)
[2016-10-27] MEDS: METHYLPREDNISOLONE 125 MG/2 ML VIAL IV SCH ×4 (04:10→21:08)
[2016-10-27] MEDS: PIPERACILLIN AND TAZOBACTAM 4.5 GM in D5W 100 ML IV SCH ×4 (04:10→21:07)
[2016-10-27 05:09] LABS: BLOOD UREA NITROGEN 18 MG/DL (7-17); CALCIUM 9.2 MG/DL (8.4-10.2); CALCULATED OSMOLALITY 264 MOs/Kg (270-290); CHLORIDE 84 mEq/L (98-107); GLUCOSE 141 MG/DL (70-99); SODIUM LEVEL 135 mEq/L (137-146)
[2016-10-27] MEDS: FUROSEMIDE 40 MG/4 ML VIAL IV SCH (06:16)
[2016-10-27] MEDS: PANTOPRAZOLE 40 MG TAB PO SCH (06:16)
[2016-10-27] MEDS: DILTIAZEM 60 MG TAB PO SCH ×3 (06:16→21:07)
[2016-10-27] MEDS: FLUTICASONE/SALMETEROL 500/50 DISKUS INH SCH ×2 (08:24→20:43)
[2016-10-27] MEDS: LISINOPRIL 10 MG TAB PO SCH (08:33)
[2016-10-27] MEDS: Levofloxacin 750 mg/150 ml D5W 750 MG/150 ML RTU IV SCH (08:34)
[2016-10-27] MEDS: METOCLOPRAMIDE 10 MG TAB PO SCH ×4 (08:34→21:07)
[2016-10-27] MEDS ORDERED: Magnesium Sulfate 2 gm/D5W 2 GM/50 ML RTU IV ONE (08:59)
--- NOTE | 2016-10-27 09:01 | GENMEDPROG ---
Chief Complaint: less sob today promised to quit smoking bilat lat infra breast pain Notes Reviewed: Yes Events from last night noted and discussed with Clinical Staff Current Medication List: Reviewed Currently: Reports: Cough, GARCIA, SOB DVT Prophylaxis: Yes - Physical Examination Vital Signs and I&O: Last Vital Signs Temp 98.7 F 10/27/16 07:40 Pulse 71 10/27/16 08:00 Resp 11 10/27/16 08:20 BP 108/51 L 10/27/16 07:40 Pulse Ox 98 10/27/16 08:26 Oxygen Pulse Oxygen Saturation 98 O2 Device Nasal Cannula Oxygen Flow Rate 2 Fraction of Inspired Oxygen ( 45 FIO2) Intake & Output 10/24/16 10/25/16 10/26/16 10/27/16 23:59 23:59 23:59 23:59 Intake Total 1656 2584 768 514 Output Total 2125 1000 2950 1100 Balance -469 1585 -2182 -586 Patient's weight 73.119 kg 72.393 kg 71.033 kg 70.261 kg General: Alert, Oriented x3, No acute distress, Well appearing, Well nourished HEENT: Normal (Normocephalic, atraumatic;EOMI.Sclera white, Nares patent, without discharge or bleeding. No oropharyngeal lesions or erythema. Mucous membranes are dry.) Neck: Non-tender, Full range of motion, Normal Trachea alignment, Normal inspection (No cervical lymphadenopathy. No supraclavicular lymphadenopathy.), No Masses palpable, Supple Lymphatics: Normal (No cervical lymphadenopathy. No supraclavicular lymphadenopathy.) Respiratory: Diminished, Rhonchi, Tachypnea, Wheezes (occas). negative: Rales Cardiovascular: Regular rate and rhythm (No bradycardia or tachycardia), Normal S1, No Gallops,Rubs/Murmurs, Normal S2, Good Pedal Pulses (DP pulses 2+ bilaterally) GI: Normal bowel sounds (normal active sounds), Soft (non-distended), Non tender , No hepatospenomegaly, No masses Extremities/Musculoskeletal: Normal pulses (DP pulses 2+ bilaterally) Skin: Warm,Dry and Intact, No rashes, No significant lesion Neurological: Strength at 5/5 X4 ext (Motor 5/5 throughout.), Normal tone, Cranial nerves 3-12 NL ( 2-12 grossly intact.) Psych/Mental Status: Appropriate, Normal Affect Lab/DI/Studies Reviewed: 10/27/16 03:42 10/27/16 03:42 Laboratory Results - last 24 hr 10/27/16 10/27/16 03:42 03:42 WBC 6.1 RBC 4.29 Hgb 11.8 L Hct 36.9 MCV 86 MCH 27.6 MCHC 32.1 L RDW 13.7 Plt Count 353 MPV 8.0 Sodium 135 L Potassium 3.0 L Chloride 84 L Carbon Dioxide 46 H Anion Gap 8 BUN 18 H Creatinine 0.80 Estimated GFR (MDRD) > 60 Glucose 141 H Calculated Osmolality 264 L Calcium 9.2 - Assessment (1) Acute respiratory failure Acute J96.00 - ACUTE RESPIRATORY FAILURE, UNSP W HYPOXIA OR HYPERCAPNIA Qualifiers: Respiratory failure complication: hypercapnia Qualified Code(s): J96.02 - Acute respiratory failure with hypercapnia Comment/Plan: Acute respiratory failure with hypercarbia requiring BiPAP. Feeling little worse today so adjustments made to her medications including intravenous Lasix along with IV steroid Zosyn Levaquin. Solu-Medrol and intensive respiratory therapy will be necessary. Will need to wean her FiO2 to an O2 sat closer to 88%. Diamox was administered for the hypercarbia and anxiety seems to make her more short of breath so Ativan will be increased as well. Chest x-ray fails to show any significant changes. (2) Hypokalemia Acute E87.6 - HYPOKALEMIA Comment/Plan: supplement (3) Community acquired bacterial pneumonia Acute J15.9 - UNSPECIFIED BACTERIAL PNEUMONIA Comment/Plan: Zosyn Levaquin ordered with probiotic. (4) Diastolic CHF Chronic I50.30 - UNSPECIFIED DIASTOLIC (CONGESTIVE) HEART FAILURE Qualifiers: Congestive heart failure chronicity: chronic Qualified Code(s): I50.32 - Chronic diastolic (congestive) heart failure Comment/Plan: She is on oral diuretic compensated continue current medication. (5) Hyponatremia Acute E87.1 - HYPO-OSMOLALITY AND HYPONATREMIA Comment/Plan: Slightly better today. IV fluids and Lasix were administered. (6) Acute exacerbation of chronic obstructive airways disease Acute J44.1 - CHRONIC OBSTRUCTIVE PULMONARY DISEASE W (ACUTE) EXACERBATION Comment/Plan: IV antibiotics probiotics and steroids are ordered with nebulizer therapy. (7) Hypertension Chronic I10 - ESSENTIAL (PRIMARY) HYPERTENSION Qualifiers: Hypertension type: essential hypertension Qualified Code(s): I10 - Essential (primary) hypertension Comment/Plan: Stable continue current medication KATERINE-inhibitor, Cardizem with Lasix (8) Leukocytosis Acute D72.829 - ELEVATED WHITE BLOOD CELL COUNT, UNSPECIFIED Qualifiers: Leukocytosis type: bandemia Qualified Code(s): D72.825 - Bandemia (9) Tobacco abuse Acute Z72.0 - TOBACCO USE Comment/Plan: Unfortunately she continues to smoke although claims to only be smoking a pack cigarettes a month. Discussed more than 10 minutes smoking cessation and she agrees to stop. She indicated a desire to go on the Wellbutrin to help her quit. (10) Gastroesophageal reflux disease Chronic K21.9 - GASTRO-ESOPHAGEAL REFLUX DISEASE WITHOUT ESOPHAGITIS Qualifiers: Esophagitis presence: esophagitis presence not specified Qualified Code(s) : K21.9 - Gastro-esophageal reflux disease without esophagitis Comment/Plan: Proton pump inhibition twice daily (11) Acute respiratory distress Acute R06.00 - DYSPNEA, UNSPECIFIED Comment/Plan: Acutely short of breath today and adjustments made in her BiPAP according to her needs. IV medications ordered. Case Care Discussed with: Patient, Nursing Staff, Resource Management Education/Counseling Given To: Patient Education/Counseling Given Regarding: Diagnosis Total Time: 38 min plus 10 minutes discussing smoking cessation. Critical Care: No Code: 75027 (12+) (407)
[2016-10-27] MEDS: BuPROPion 150 MG SR TAB PO SCH (11:34)
[2016-10-27] MEDS: LORAZEPAM 0.5 MG TAB PO PRN ×2 (11:34→21:07)
[2016-10-27] MEDS: PROBIOTIC BLEND TAB PO SCH ×2 (12:14→17:42)
[2016-10-27] MEDS: ENOXAPARIN 40 MG/0.4 ML PFS SQ SCH (17:48)
[2016-10-27] MEDS: MONTELUKAST SODIUM 10 MG TAB PO SCH (21:07)
[2016-10-28] MEDS: Albuterol/Ipratropium Neb 3 ML NEB NEB SCH ×4 (02:20→20:01)
[2016-10-28] MEDS: METHYLPREDNISOLONE 125 MG/2 ML VIAL IV SCH ×4 (02:27→19:38)
[2016-10-28] MEDS: PANTOPRAZOLE 40 MG TAB PO SCH (04:40)
[2016-10-28] MEDS: PIPERACILLIN AND TAZOBACTAM 4.5 GM in D5W 100 ML IV SCH ×4 (04:40→21:57)
[2016-10-28] MEDS: DILTIAZEM 60 MG TAB PO SCH ×3 (04:40→19:37)
[2016-10-28 06:56] LABS: MPV 7.7 fL (7.4-10.4)
[2016-10-28 07:19] LABS: BLOOD UREA NITROGEN 28 MG/DL (7-17); CALCIUM 9.5 MG/DL (8.4-10.2); CALCULATED OSMOLALITY 273 MOs/Kg (270-290); CHLORIDE 89 mEq/L (98-107); GLUCOSE 145 MG/DL (70-99); SODIUM LEVEL 137 mEq/L (137-146)
[2016-10-28] MEDS: FLUTICASONE/SALMETEROL 500/50 DISKUS INH SCH ×3 (08:05→20:02)
[2016-10-28] MEDS: Levofloxacin 750 mg/150 ml D5W 750 MG/150 ML RTU IV SCH (08:58)
[2016-10-28] MEDS: METOCLOPRAMIDE 10 MG TAB PO SCH ×4 (08:59→19:37)
[2016-10-28] MEDS: FUROSEMIDE 40 MG/4 ML VIAL IV SCH (08:59)
[2016-10-28] MEDS: BuPROPion 150 MG SR TAB PO SCH (09:00)
[2016-10-28] MEDS: LISINOPRIL 10 MG TAB PO SCH (09:00)
--- NOTE | 2016-10-28 09:10 | GENMEDPROG ---
Chief Complaint: SOB LESS SEVERE POOR APPETITE Notes Reviewed: Yes Events from last night noted and discussed with Clinical Staff Current Medication List: Reviewed Currently: Reports: Cough, GARCIA, SOB DVT Prophylaxis: Yes - Physical Examination Vital Signs and I&O: Last Vital Signs Temp 97.3 F L 10/28/16 04:41 Pulse 86 10/28/16 08:00 Resp 18 10/28/16 08:03 BP 128/65 10/28/16 04:41 Pulse Ox 96 10/28/16 08:03 Oxygen Pulse Oxygen Saturation 96 O2 Device Nasal Cannula Oxygen Flow Rate 3 Fraction of Inspired Oxygen ( 40 FIO2) Intake & Output 10/25/16 10/26/16 10/27/16 10/28/16 23:59 23:59 23:59 23:59 Intake Total 2584 768 1174 364 Output Total 1000 2950 3150 300 Balance 1583 64 Patient's weight 72.393 kg 71.033 kg 70.261 kg 66.406 kg General: Alert, Oriented x3, No acute distress, Well appearing, Well nourished HEENT: Normal (Normocephalic, atraumatic;EOMI.Sclera white, Nares patent, without discharge or bleeding. No oropharyngeal lesions or erythema. Mucous membranes are dry.) Neck: Non-tender, Full range of motion, Normal Trachea alignment, Normal inspection (No cervical lymphadenopathy. No supraclavicular lymphadenopathy.), No Masses palpable, Supple Lymphatics: Normal (No cervical lymphadenopathy. No supraclavicular lymphadenopathy.) Respiratory: Diminished, Rhonchi, Tachypnea, Wheezes (occas). negative: Rales Cardiovascular: Regular rate and rhythm (No bradycardia or tachycardia), Normal S1, No Gallops,Rubs/Murmurs, Normal S2, Good Pedal Pulses (DP pulses 2+ bilaterally) GI: Normal bowel sounds (normal active sounds), Soft (non-distended), Non tender , No hepatospenomegaly, No masses Extremities/Musculoskeletal: Normal pulses (DP pulses 2+ bilaterally) Skin: Warm,Dry and Intact, No rashes, No significant lesion Neurological: Strength at 5/5 X4 ext (Motor 5/5 throughout.), Normal tone, Cranial nerves 3-12 NL ( 2-12 grossly intact.) Psych/Mental Status: Appropriate, Normal Affect Lab/DI/Studies Reviewed: 10/28/16 06:20 10/28/16 06:20 Laboratory Results - last 24 hr 10/27/16 10/28/16 10/28/16 09:30 06:20 06:20 WBC 5.7 RBC 4.19 L Hgb 11.5 L Hct 35.7 L MCV 85 MCH 27.5 MCHC 32.3 L RDW 13.9 Plt Count 335 MPV 7.7 Sodium 137 Potassium 3.8 D Chloride 89 L Carbon Dioxide 44 H Anion Gap 8 BUN 28 H Creatinine 0.70 Estimated GFR (MDRD) > 60 Glucose 145 H Calculated Osmolality 273 Calcium 9.5 Magnesium 2.20 2.40 H - Assessment (1) Acute respiratory failure Acute J96.00 - ACUTE RESPIRATORY FAILURE, UNSP W HYPOXIA OR HYPERCAPNIA Qualifiers: Respiratory failure complication: hypercapnia Qualified Code(s): J96.02 - Acute respiratory failure with hypercapnia Comment/Plan: Acute respiratory failure with hypercarbia requiring BiPAP. Feeling little worse today so adjustments made to her medications including intravenous Lasix along with IV steroid Zosyn Levaquin. Solu-Medrol and intensive respiratory therapy will be necessary. Will need to wean her FiO2 to an O2 sat closer to 88%. Diamox was administered for the hypercarbia and anxiety seems to make her more short of breath so Ativan will be increased as well. Chest x-ray fails to show any significant changes. (2) Hypokalemia Acute E87.6 - HYPOKALEMIA Comment/Plan: supplement (3) Community acquired bacterial pneumonia Acute J15.9 - UNSPECIFIED BACTERIAL PNEUMONIA Comment/Plan: Zosyn Levaquin ordered with probiotic. (4) Diastolic CHF Chronic I50.30 - UNSPECIFIED DIASTOLIC (CONGESTIVE) HEART FAILURE Qualifiers: Congestive heart failure chronicity: chronic Qualified Code(s): I50.32 - Chronic diastolic (congestive) heart failure Comment/Plan: She is on oral diuretic compensated continue current medication. (5) Hyponatremia Acute E87.1 - HYPO-OSMOLALITY AND HYPONATREMIA Comment/Plan: Slightly better today. IV fluids and Lasix were administered. (6) Acute exacerbation of chronic obstructive airways disease Acute J44.1 - CHRONIC OBSTRUCTIVE PULMONARY DISEASE W (ACUTE) EXACERBATION Comment/Plan: IV antibiotics probiotics and steroids are ordered with nebulizer therapy. (7) Hypertension Chronic I10 - ESSENTIAL (PRIMARY) HYPERTENSION Qualifiers: Hypertension type: essential hypertension Qualified Code(s): I10 - Essential (primary) hypertension Comment/Plan: Stable continue current medication KATERINE-inhibitor, Cardizem with Lasix (8) Leukocytosis Acute D72.829 - ELEVATED WHITE BLOOD CELL COUNT, UNSPECIFIED Qualifiers: Leukocytosis type: bandemia Qualified Code(s): D72.825 - Bandemia (9) Tobacco abuse Acute Z72.0 - TOBACCO USE Comment/Plan: Unfortunately she continues to smoke although claims to only be smoking a pack cigarettes a month. Discussed more than 10 minutes smoking cessation and she agrees to stop. She indicated a desire to go on the Wellbutrin to help her quit. (10) Gastroesophageal reflux disease Chronic K21.9 - GASTRO-ESOPHAGEAL REFLUX DISEASE WITHOUT ESOPHAGITIS Qualifiers: Esophagitis presence: esophagitis presence not specified Qualified Code(s) : K21.9 - Gastro-esophageal reflux disease without esophagitis Comment/Plan: Proton pump inhibition twice daily (11) Acute respiratory distress Acute R06.00 - DYSPNEA, UNSPECIFIED Comment/Plan: Acutely short of breath today and adjustments made in her BiPAP according to her needs. IV medications ordered. Case Care Discussed with: Patient, Family, Nursing Staff Education/Counseling Given To: Patient, Family Member Education/Counseling Given Regarding: Diagnosis, Treatment Total Time: 37 min Critical Care: No Code: 92003 (12+)
[2016-10-28] MEDS: LORAZEPAM 0.5 MG TAB PO PRN ×2 (10:19→19:37)
[2016-10-28] MEDS: PROBIOTIC BLEND TAB PO SCH ×2 (11:40→16:51)
[2016-10-28] MEDS: ENOXAPARIN 40 MG/0.4 ML PFS SQ SCH (16:51)
[2016-10-28] MEDS: MONTELUKAST SODIUM 10 MG TAB PO SCH (19:38)
[2016-10-29] MEDS: Albuterol/Ipratropium Neb 3 ML NEB NEB SCH ×4 (01:28→19:51)
[2016-10-29] MEDS: PIPERACILLIN AND TAZOBACTAM 4.5 GM in D5W 100 ML IV SCH ×4 (04:41→20:35)
[2016-10-29] MEDS: METHYLPREDNISOLONE 125 MG/2 ML VIAL IV SCH ×4 (04:41→20:33)
[2016-10-29] MEDS: DILTIAZEM 60 MG TAB PO SCH (04:46)
[2016-10-29] MEDS: PANTOPRAZOLE 40 MG TAB PO SCH (04:47)
[2016-10-29] MEDS: Levofloxacin 750 mg/150 ml D5W 750 MG/150 ML RTU IV SCH (07:51)
[2016-10-29] MEDS: ACETAZOLAMIDE 250 MG TAB PO SCH (07:54)
[2016-10-29] MEDS: METOCLOPRAMIDE 10 MG TAB PO SCH ×4 (07:54→20:49)
[2016-10-29] MEDS: FUROSEMIDE 40 MG/4 ML VIAL IV SCH (07:55)
[2016-10-29] MEDS: LISINOPRIL 10 MG TAB PO SCH (07:55)
[2016-10-29] MEDS: BuPROPion 150 MG SR TAB PO SCH (07:55)
[2016-10-29] MEDS: LORAZEPAM 0.5 MG TAB PO PRN (08:01)
[2016-10-29] MEDS: FLUTICASONE/SALMETEROL 500/50 DISKUS INH SCH ×2 (08:53→19:52)
[2016-10-29] MEDS: ALBUTEROL 0.083% 3 ML NEB NEB PRN ×2 (10:58→17:46)
[2016-10-29] MEDS ORDERED: LORAZEPAM 1 MG TAB PO PRN (11:27)
[2016-10-29] MEDS: PROBIOTIC BLEND TAB PO SCH ×2 (11:34→17:38)
[2016-10-29] MEDS ORDERED: LORAZEPAM 0.5 MG TAB PO ONE (12:00)
--- NOTE | 2016-10-29 13:09 | GENMEDPROG ---
Chief Complaint: Still short of breath but not as severely as previous Notes Reviewed: Yes Events from last night noted and discussed with Clinical Staff Current Medication List: Reviewed Currently: Reports: Cough, GARCIA, SOB DVT Prophylaxis: Yes - Physical Examination Vital Signs and I&O: Last Vital Signs Temp 97.9 F 10/29/16 08:00 Pulse 130 H 10/29/16 12:11 Resp 24 10/29/16 11:00 BP 132/63 10/29/16 08:00 Pulse Ox 96 10/29/16 11:00 Oxygen Pulse Oxygen Saturation 96 O2 Device Nasal Cannula Oxygen Flow Rate 2.5 Fraction of Inspired Oxygen ( 35 FIO2) Intake & Output 10/26/16 10/27/16 10/28/16 10/29/16 23:59 23:59 23:59 23:59 Intake Total 768 1174 1065 707 Output Total 2950 3150 1350 850 Balance -2182 -1976 -285 -143 Patient's weight 71.033 kg 70.261 kg 66.406 kg 67.449 kg General: Alert, Oriented x3, No acute distress, Well appearing, Well nourished HEENT: Normal (Normocephalic, atraumatic;EOMI.Sclera white, Nares patent, without discharge or bleeding. No oropharyngeal lesions or erythema. Mucous membranes are dry.) Neck: Non-tender, Full range of motion, Normal Trachea alignment, Normal inspection (No cervical lymphadenopathy. No supraclavicular lymphadenopathy.), No Masses palpable, Supple Lymphatics: Normal (No cervical lymphadenopathy. No supraclavicular lymphadenopathy.) Respiratory: Diminished, Rhonchi, Tachypnea, Wheezes (occas). negative: Rales Cardiovascular: Regular rate and rhythm (No bradycardia or tachycardia), Normal S1, No Gallops,Rubs/Murmurs, Normal S2, Good Pedal Pulses (DP pulses 2+ bilaterally) GI: Normal bowel sounds (normal active sounds), Soft (non-distended), Non tender , No hepatospenomegaly, No masses Extremities/Musculoskeletal: Normal pulses (DP pulses 2+ bilaterally) Skin: Warm,Dry and Intact, No rashes, No significant lesion Neurological: Strength at 5/5 X4 ext (Motor 5/5 throughout.), Normal tone, Cranial nerves 3-12 NL ( 2-12 grossly intact.) Psych/Mental Status: Appropriate, Normal Affect Lab/DI/Studies Reviewed: 10/28/16 06:20 10/28/16 06:20 - Assessment (1) Acute respiratory failure Acute J96.00 - ACUTE RESPIRATORY FAILURE, UNSP W HYPOXIA OR HYPERCAPNIA Qualifiers: Respiratory failure complication: hypercapnia Qualified Code(s): J96.02 - Acute respiratory failure with hypercapnia Comment/Plan: Acute respiratory failure with hypercarbia requiring BiPAP. Feeling little worse today so adjustments made to her medications including intravenous Lasix along with IV steroid Zosyn Levaquin. Solu-Medrol and intensive respiratory therapy will be necessary. Will need to wean her FiO2 to an O2 sat closer to 88%. Diamox was administered for the hypercarbia and anxiety seems to make her more short of breath so Ativan will be increased as well. Chest x-ray fails to show any significant changes. ABGs in a.m. (2) Hypokalemia Acute E87.6 - HYPOKALEMIA Comment/Plan: supplement (3) Community acquired bacterial pneumonia Acute J15.9 - UNSPECIFIED BACTERIAL PNEUMONIA Comment/Plan: Zosyn Levaquin ordered with probiotic. (4) Diastolic CHF Chronic I50.30 - UNSPECIFIED DIASTOLIC (CONGESTIVE) HEART FAILURE Qualifiers: Congestive heart failure chronicity: chronic Qualified Code(s): I50.32 - Chronic diastolic (congestive) heart failure Comment/Plan: She is on oral diuretic compensated continue current medication. (5) Hyponatremia Acute E87.1 - HYPO-OSMOLALITY AND HYPONATREMIA Comment/Plan: Slightly better today. IV fluids and Lasix were administered. (6) Acute exacerbation of chronic obstructive airways disease Acute J44.1 - CHRONIC OBSTRUCTIVE PULMONARY DISEASE W (ACUTE) EXACERBATION Comment/Plan: IV antibiotics probiotics and steroids are ordered with nebulizer therapy. (7) Hypertension Chronic I10 - ESSENTIAL (PRIMARY) HYPERTENSION Qualifiers: Hypertension type: essential hypertension Qualified Code(s): I10 - Essential (primary) hypertension Comment/Plan: Stable continue current medication KATERINE-inhibitor, Cardizem with Lasix (8) Leukocytosis Acute D72.829 - ELEVATED WHITE BLOOD CELL COUNT, UNSPECIFIED Qualifiers: Leukocytosis type: bandemia Qualified Code(s): D72.825 - Bandemia (9) Tobacco abuse Acute Z72.0 - TOBACCO USE Comment/Plan: Unfortunately she continues to smoke although claims to only be smoking a pack cigarettes a month. Discussed more than 10 minutes smoking cessation and she agrees to stop. She indicated a desire to go on the Wellbutrin to help her quit. (10) Gastroesophageal reflux disease Chronic K21.9 - GASTRO-ESOPHAGEAL REFLUX DISEASE WITHOUT ESOPHAGITIS Qualifiers: Esophagitis presence: esophagitis presence not specified Qualified Code(s) : K21.9 - Gastro-esophageal reflux disease without esophagitis Comment/Plan: Proton pump inhibition twice daily (11) Acute respiratory distress Acute R06.00 - DYSPNEA, UNSPECIFIED Comment/Plan: Acutely short of breath today and adjustments made in her BiPAP according to her needs. IV medications ordered. Case Care Discussed with: Patient, Nursing Staff Education/Counseling Given To: Patient Education/Counseling Given Regarding: Diagnosis, Treatment Total Time: 38 min Critical Care: No Code: 11952 (12+)
[2016-10-29] MEDS: ENOXAPARIN 40 MG/0.4 ML PFS SQ SCH (17:38)
[2016-10-29] MEDS: LORAZEPAM 1 MG TAB PO PRN (18:46)
[2016-10-29] MEDS: MONTELUKAST SODIUM 10 MG TAB PO SCH (20:33)
[2016-10-30] MEDS: Albuterol/Ipratropium Neb 3 ML NEB NEB SCH ×4 (00:59→19:05)
[2016-10-30] MEDS: METHYLPREDNISOLONE 125 MG/2 ML VIAL IV SCH ×4 (02:54→20:34)
[2016-10-30] MEDS: PIPERACILLIN AND TAZOBACTAM 4.5 GM in D5W 100 ML IV SCH ×4 (02:54→22:13)
[2016-10-30 05:11] LABS: ALLEN'S TEST PASS; BEb 22.7 (+/- 2); TCO2 55.1 MMOL/L (23-27)
[2016-10-30 05:13] LABS: ABG Draw Site Right Radial; ABG Draw Tech BKL
[2016-10-30 05:14] LABS: BI-PAP 18/6 RATE 10 cm H2O
[2016-10-30] MEDS: LORAZEPAM 1 MG TAB PO PRN ×2 (05:48→15:16)
[2016-10-30] MEDS: PANTOPRAZOLE 40 MG TAB PO SCH (05:48)
[2016-10-30 07:01] LABS: AUTOMATED BASOPHIL 0.1 % (0-2); AUTOMATED LYMPH 4.5 % (17-44); AUTOMATED MONOCYTE 7.2 % (3-10); AUTOMATED NEUTROPHIL 88.2 % (45-76); MPV 7.7 fL (7.4-10.4)
[2016-10-30 07:22] LABS: BLOOD UREA NITROGEN 21 MG/DL (7-17); CALCIUM 9.4 MG/DL (8.4-10.2); CALCULATED OSMOLALITY 268 MOs/Kg (270-290); CHLORIDE 85 mEq/L (98-107); GLUCOSE 151 MG/DL (70-99); SODIUM LEVEL 136 mEq/L (137-146)
[2016-10-30] MEDS ORDERED: KCL 20 MEQ/100 ML IV ONE (08:09)
[2016-10-30] MEDS: Levofloxacin 750 mg/150 ml D5W 750 MG/150 ML RTU IV SCH (08:37)
[2016-10-30] MEDS: FLUTICASONE/SALMETEROL 500/50 DISKUS INH SCH ×2 (08:40→19:18)
[2016-10-30] MEDS: METOCLOPRAMIDE 10 MG TAB PO SCH ×4 (08:56→20:34)
[2016-10-30] MEDS: FUROSEMIDE 40 MG/4 ML VIAL IV SCH (08:56)
[2016-10-30] MEDS: BuPROPion 150 MG SR TAB PO SCH (08:56)
[2016-10-30] MEDS: LISINOPRIL 10 MG TAB PO SCH (08:56)
[2016-10-30] MEDS: KCl 10 mEq/100 ml Premix (Run) 10 MEQ/100 ML RTU IV SCH ×2 (10:11→11:25)
[2016-10-30] MEDS: POTASSIUM CHLORIDE 20 MEQ TAB PO SCH ×2 (11:26→17:35)
[2016-10-30] MEDS: PROBIOTIC BLEND TAB PO SCH ×2 (11:26→17:34)
[2016-10-30] MEDS: ALBUTEROL 0.083% 3 ML NEB NEB PRN (11:37)
[2016-10-30] MEDS ORDERED: NACL 0.65% NASAL 45 ML BOTTLE NAS PRN (13:24)
--- NOTE | 2016-10-30 16:10 | GENMEDPROG ---
Subjective Note: Patient remains very short of breath and still requiring BiPAP treatment. She has shown little improvement. Notes Reviewed: Yes Events from last night noted and discussed with Clinical Staff Current Medication List: Reviewed Currently: Reports: Cough, GARCIA, SOB DVT Prophylaxis: Yes - Physical Examination Vital Signs and I&O: Last Vital Signs Temp 97.9 F 10/30/16 15:49 Pulse 92 10/30/16 15:49 Resp 27 H 10/30/16 15:49 BP 121/59 L 10/30/16 15:49 Pulse Ox 92 10/30/16 15:49 Oxygen Pulse Oxygen Saturation 92 O2 Device Nasal Cannula Oxygen Flow Rate 2.5 Fraction of Inspired Oxygen ( 35 FIO2) Intake & Output 10/27/16 10/28/16 10/29/16 10/30/16 23:59 23:59 23:59 23:59 Intake Total 1174 1065 1725 898 Output Total 3150 1350 1450 1350 Balance -5379 -285 275 -452 Patient's weight 70.261 kg 66.406 kg 67.449 kg 67.903 kg General: Alert, Oriented x3, No acute distress, Well appearing, Well nourished HEENT: Normal (Normocephalic, atraumatic;EOMI.Sclera white, Nares patent, without discharge or bleeding. No oropharyngeal lesions or erythema. Mucous membranes are dry.) Neck: Non-tender, Full range of motion, Normal Trachea alignment, Normal inspection (No cervical lymphadenopathy. No supraclavicular lymphadenopathy.), No Masses palpable, Supple Lymphatics: Normal (No cervical lymphadenopathy. No supraclavicular lymphadenopathy.) Respiratory: Diminished, Rhonchi, Tachypnea, Wheezes (occas). negative: Rales Cardiovascular: Regular rate and rhythm (No bradycardia or tachycardia), Normal S1, No Gallops,Rubs/Murmurs, Normal S2, Good Pedal Pulses (DP pulses 2+ bilaterally) GI: Normal bowel sounds (normal active sounds), Soft (non-distended), Non tender , No hepatospenomegaly, No masses Extremities/Musculoskeletal: Normal pulses (DP pulses 2+ bilaterally) Skin: Warm,Dry and Intact, No rashes, No significant lesion Neurological: Strength at 5/5 X4 ext (Motor 5/5 throughout.), Normal tone, Cranial nerves 3-12 NL ( 2-12 grossly intact.) Psych/Mental Status: Appropriate, Normal Affect Lab/DI/Studies Reviewed: Abnormal Lab Results 10/30/16 10/30/16 10/30/16 05:05 06:25 06:25 WBC 11.0 H MCHC 32.0 L Neut % (Auto) 88.2 H Lymph % (Auto) 4.5 L Absolute Neuts (auto) 9.68 H Absolute Lymphs (auto) 0.44 L pCO2 83.0 H* pO2 62.0 L HCO3 52.6 H Total CO2 55.1 H Base Excess 22.7 H Sodium 136 L Potassium 2.6 L D Chloride 85 L Carbon Dioxide 48 H Anion Gap 6 L BUN 21 H Glucose 151 H Calculated Osmolality 268 L - Assessment (1) Acute respiratory failure Acute J96.00 - ACUTE RESPIRATORY FAILURE, UNSP W HYPOXIA OR HYPERCAPNIA Qualifiers: Respiratory failure complication: hypercapnia Qualified Code(s): J96.02 - Acute respiratory failure with hypercapnia Comment/Plan: 10/30/2016: Patient still acutely ill and requiring significant amounts of BiPAP will consult Dr. Armenta. Admission: Acute respiratory failure with hypercarbia requiring BiPAP. Feeling little worse today so adjustments made to her medications including intravenous Lasix along with IV steroid Zosyn Levaquin. Solu-Medrol and intensive respiratory therapy will be necessary. Will need to wean her FiO2 to an O2 sat closer to 88%. Diamox was administered for the hypercarbia and anxiety seems to make her more short of breath so Ativan will be increased as well. Chest x-ray fails to show any significant changes. ABGs in a.m. (2) Hypokalemia Acute E87.6 - HYPOKALEMIA Comment/Plan: supplement; patient will need daily potassium repletion (3) Community acquired bacterial pneumonia Acute J15.9 - UNSPECIFIED BACTERIAL PNEUMONIA Comment/Plan: Zosyn Levaquin ordered with probiotic. Patient will choir 10 days total of therapy. (4) Diastolic CHF Chronic I50.30 - UNSPECIFIED DIASTOLIC (CONGESTIVE) HEART FAILURE Qualifiers: Congestive heart failure chronicity: chronic Qualified Code(s): I50.32 - Chronic diastolic (congestive) heart failure Comment/Plan: She is on oral diuretic compensated continue current medication. (5) Hyponatremia Acute E87.1 - HYPO-OSMOLALITY AND HYPONATREMIA Comment/Plan: Slightly better today. IV fluids and Lasix were administered. (6) Acute exacerbation of chronic obstructive airways disease Acute J44.1 - CHRONIC OBSTRUCTIVE PULMONARY DISEASE W (ACUTE) EXACERBATION Comment/Plan: IV antibiotics probiotics and steroids are ordered with nebulizer therapy. (7) Hypertension Chronic I10 - ESSENTIAL (PRIMARY) HYPERTENSION Qualifiers: Hypertension type: essential hypertension Qualified Code(s): I10 - Essential (primary) hypertension Comment/Plan: Stable continue current medication KATERINE-inhibitor, Cardizem with Lasix (8) Leukocytosis Acute D72.829 - ELEVATED WHITE BLOOD CELL COUNT, UNSPECIFIED Qualifiers: Leukocytosis type: bandemia Qualified Code(s): D72.825 - Bandemia Comment/Plan: Noted improving. (9) Tobacco abuse Acute Z72.0 - TOBACCO USE Comment/Plan: Unfortunately she continues to smoke although claims to only be smoking a pack cigarettes a month. Discussed more than 10 minutes smoking cessation and she agrees to stop. She indicated a desire to go on the Wellbutrin to help her quit. (10) Gastroesophageal reflux disease Chronic K21.9 - GASTRO-ESOPHAGEAL REFLUX DISEASE WITHOUT ESOPHAGITIS Qualifiers: Esophagitis presence: esophagitis presence not specified Qualified Code(s) : K21.9 - Gastro-esophageal reflux disease without esophagitis Comment/Plan: Proton pump inhibition twice daily (11) Acute respiratory distress Resolved R06.00 - DYSPNEA, UNSPECIFIED Comment/Plan: Acutely short of breath today and adjustments made in her BiPAP according to her needs. IV medications ordered. - Plan Continue present care. Disposition Plan: Likely home when stable Case Care Discussed with: Patient, Nursing Staff Education/Counseling Given To: Patient Education/Counseling Given Regarding: Diagnosis, Treatment, Prognosis Total Time: 35 minutes Critical Care: No Couseling Time (>50% in counseling/coordination): No
[2016-10-30] MEDS: ENOXAPARIN 40 MG/0.4 ML PFS SQ SCH (17:34)
[2016-10-30] MEDS: MONTELUKAST SODIUM 10 MG TAB PO SCH (20:34)
[2016-10-30] MEDS ORDERED: SECURA EXTRA PROTECTIVE CREAM TOP ONE (20:41)
[2016-10-30] MEDS: ZOLPIDEM TARTRATE 5 MG TAB PO PRN (20:43)
--- NOTE | 2016-10-30 21:08 | HIMCONS ---
DATE OF CONSULT: REQUESTING PHYSICIAN: Marva Aly MD REASON FOR CONSULTATION: Respiratory failure. HISTORY OF PRESENT ILLNESS: This patient is a 71-year-old lady, well known to me from previous office and hospital visits. Apparently, the patient was admitted with 3 days history of shortness of breath, wheezing, and tightness in chest and chills and not been able to sleep at night. She has been a persistent smoker and also has history of congestive heart failure. Since her admission to the hospital, the patient is feeling a little bit better. She has been on nasal cannula oxygen during the daytime and has been using BiPAP while she is sleeping. Denies any hemoptysis, hematemesis, hematochezia, or melena. Denies any nausea, vomiting, diarrhea, or constipation. PAST MEDICAL HISTORY: Significant for hypertension, congestive heart failure, history of MD 5 years ago, history of COPD and asthma, gastroesophageal reflux disease, history of anxiety ( ) MEDICATIONS: In the chart were noted. ALLERGIES: NO KNOWN DRUG ALLERGIES. FAMILY HISTORY: Significant for father having cardiac disorder and hypertension. Mother had hypertension. SOCIAL HISTORY: The patient has been a smoker most of her adult life. No history of alcohol or drug abuse. REVIEW OF SYSTEMS: Entire review of systems is negative except for those mentioned in the history of present illness. PHYSICAL EXAMINATION: VITAL SIGNS: Temperature is 97.4 degrees Fahrenheit, pulse is 104, respiratory rate is 26, blood pressure 127/60, pulse ox 92% on 3 L nasal cannula. The patient has been on BiPAP with 35% oxygen while she is sleeping. CHEST: Clear to auscultation. No wheezing at this time. HEART: S1, S2. Regular. The patient ( ). EXTREMITIES: No clubbing, cyanosis, or edema. ABDOMEN: Soft and nontender. Bowel sounds present. Hepatosplenomegaly is absent. NEUROLOGIC: Grossly nonfocal. The patient is moving all extremities. LABORATORY DATA: White count 7.0, hemoglobin is 12.1, hematocrit 37.7, platelets are 325. Blood gas showed a pH of 7.41, pCO2 was 83, PO2 of 62 on 18/6 BiPAP with a rate of 10 and 35% oxygen. Sodium 133, potassium 2.6, chloride 85, CO2 is 48, BUN is 21, creatinine 0.6, and glucose is 151. IMAGING REPORTS: Chest x-ray was done 5 days ago and does not show any acute infiltrates. Hyperinflated lung long were noted. IMPRESSION: 1. Kckut-an-rfpqvan respiratory failure. 2. Chronic obstructive pulmonary disease with exacerbation. 3. Congestive heart failure. 4. Nicotine addiction. 5. Multiple other medical issues. PLAN: The patient has been doing fairly well on this current settings except for the recent rise in white count. She has been stable. I would continue Levaquin and Zosyn. Cut down the Solu-Medrol to 60 mg IV q.6 hours from 80 q.6. Continue BiPAP at night time and during the day try to keep the patient on nasal cannula oxygen as the patient has been having deterioration ( ) on the bridge of her nose on her skin. Because of the persistent BiPAP use, I would continue other supportive care. Thank you very much for the consultation. I will follow the patient with you. I had a prolonged discussion with the patient's family as well. [id number]
[2016-10-31] MEDS: Albuterol/Ipratropium Neb 3 ML NEB NEB SCH ×4 (01:16→21:18)
[2016-10-31] MEDS: METHYLPREDNISOLONE 125 MG/2 ML VIAL IV SCH ×4 (03:52→20:16)
[2016-10-31] MEDS: PIPERACILLIN AND TAZOBACTAM 4.5 GM in D5W 100 ML IV SCH ×4 (03:52→20:17)
[2016-10-31 04:35] LABS: ALLEN'S TEST PASS; BEb 22.2 (+/- 2); TCO2 54.5 MMOL/L (23-27)
[2016-10-31 05:00] LABS: ABG Draw Site Right Radial; BI-PAP 16/8 cm H2O
[2016-10-31] MEDS: PANTOPRAZOLE 40 MG TAB PO SCH (05:57)
[2016-10-31] MEDS: LORAZEPAM 1 MG TAB PO PRN ×3 (06:17→20:24)
--- NOTE | 2016-10-31 07:31 | DIRPT ---
CLINICAL DATA: Respiratory failure EXAM: PORTABLE CHEST 1 VIEW COMPARISON: October 25, 2016 FINDINGS: Lungs are somewhat hyperexpanded. There is no edema or consolidation. Heart is within normal limits in size and contour. The appearance of the pulmonary vascularity is suggests a degree of pulmonary venous hypertension. No adenopathy. There is atherosclerotic calcification in the aorta. IMPRESSION: Evidence of a degree of pulmonary venous hypertension. Suspect a degree of pulmonary vascular congestion. No nesha edema or consolidation, however. Lungs are somewhat hyperexpanded. Electronically Signed By: Ronnie Tello III, M.D. On: 10/31/2016 07:28
--- NOTE | 2016-10-31 08:10 | PCM.PULM ---
Chief Complaint: Respiratory failure with hypoxia Pneumonia COPD exacerbation Hypoxia Patient in bed alert and responsive on BIPAP ps /,fio2 %30. Current complaints: SOB,GARCIA,fatigued. No chest pain reported Medication list reviewed:yes Notes reviewed:yes, Events from last night noted and discussed with Clinical Staff DVT prophylaxis:yes - Physical Examination Vital Signs and I&O: Last Vital Signs Temp 98.2 F 10/31/16 07:32 Pulse 91 10/31/16 07:32 Resp 22 10/31/16 07:32 BP 141/68 10/31/16 07:32 Pulse Ox 91 10/31/16 07:32 Oxygen Pulse Oxygen Saturation 91 O2 Device BiPAP Oxygen Flow Rate 2.5 Fraction of Inspired Oxygen ( 30 FIO2) Intake & Output 10/28/16 10/29/16 10/30/16 10/31/16 23:59 23:59 23:59 23:59 Intake Total 1065 1725 1668 403 Output Total 1350 1450 1850 Balance -285 275 -182 403 Patient's weight 66.406 kg 67.449 kg 67.903 kg 68.356 kg General: Alert, Oriented x3, Cooperative, No acute distress, Weakness, Fatigue Respiratory: Diminished Cardiovascular: Regular rate, Regular rate and rhythm, Normal S1, No Gallops, Rubs/Murmurs, Normal S2, Good Pedal Pulses GI: Normal bowel sounds, Soft, Non tender, No hepatospenomegaly, No masses Extremities/Musculoskeletal: Normal pulses Skin: Warm,Dry and Intact, No rashes, No breakdown, No significant lesion Neurological: Normal speech, Cranial nerves 3-12 NL Psych/Mental Status: Appropriate Result Diagrams: 10/30/16 06:25 10/30/16 06:25 Labs (last 24 hours): Laboratory Results - last 24 hr 10/31/16 04:30 Puncture Site Right radial pH 7.410 pCO2 82.0 H* pO2 88.0 HCO3 52.0 H Total CO2 54.5 H Base Excess 22.2 H FiO2 % 35% Mode BiPAP 19/06 Specimen Drawn By Chandunuria Lab/DI/Studies Reviewed: EKG: NSR, NO ST or ST wave changes noted CT scan CT scan of the chest was seen personally patient seems to have no acute infiltrate borderline enlarged pulmonary artery and no acute PE could be visualized Medications: Acetaminophen (Tylenol Suppository) 325 mg CA Q6H PRN; Protocol PRN Reason: Mild Pain or Fever above 100.4 Stop: 11/06/16 16:59 Acetazolamide (Diamox) 500 mg PO MoWeFr@0900 [facility] Stop: 11/07/16 08:59 Last Admin: 10/31/16 09:11 Dose: 500 mg Albuterol (Proventil, Ventolin) 3 ml NEB Q2H PRN PRN Reason: Wheezing Stop: 11/06/16 16:59 Last Admin: 10/30/16 11:37 Dose: 3 ml Benzonatate (Tessalon) 200 mg PO Q8H PRN PRN Reason: Cough - First Option Stop: 11/06/16 16:59 Methylprednisolone Sodium Succinate (Solu-Medrol) 60 mg IV Q6H [facility] Stop: 11/13/16 15:59 Last Admin: 10/31/16 09:11 Dose: 60 mg Sodium Chloride ([place] Mist) 2 spr KATHRYN Q30MIN PRN PRN Reason: Nasal Dryness Stop: 11/13/16 13:23 Last Admin: 10/30/16 15:16 Dose: 2 spr Zolpidem Tartrate (Ambien) 5 mg PO 2100,2200 PRN PRN Reason: Sleep or Insomnia Stop: 11/06/16 16:59 Last Admin: 10/30/16 20:43 Dose: 5 mg Acetaminophen (Tylenol Tablet) 325 mg PO Q6H PRN; Protocol PRN Reason: Mild Pain or Fever above 100.4 Stop: 11/06/16 16:59 Albuterol/Ipratropium (Duoneb) 3 ml NEB RTQ6 [facility] Stop: 11/06/16 16:59 Last Admin: 10/31/16 08:16 Dose: 3 ml Bupropion HCl (Wellbutrin-Sr) 150 mg PO DAILY [facility] Stop: 11/10/16 16:59 Last Admin: 10/31/16 09:11 Dose: 150 mg Chlorphenir/Hydrocodone Polistirex (Tussionex) 5 ml PO BID PRN PRN Reason: Cough - Alternative Stop: 11/06/16 16:59 Diltiazem HCl (Cardizem Cd) 240 mg PO QAM [facility] Stop: 11/12/16 11:59 Last Admin: 10/31/16 09:11 Dose: 240 mg Enoxaparin Sodium (Lovenox) 40 mg SQ Q24H [facility] Stop: 11/06/16 17:59 Last Admin: 10/30/16 17:34 Dose: 40 mg Furosemide (Lasix) 40 mg IV DAILY [facility] Stop: 11/11/16 08:59 Last Admin: 10/31/16 09:11 Dose: 40 mg Lact Acid/Bifidobact/Lact [place]/Streptoc Th (Wendie Q) 1 tab PO BIDLS [facility] Stop: 11/06/16 16:59 Last Admin: 10/30/16 17:34 Dose: 1 tab Levofloxacin/Dextrose (Levaquin 750 Mg) 750 mg in 150 mls @ 100 mls/hr IV Q24H [facility] Stop: 11/01/16 10:00 Last Admin: 10/31/16 09:11 Dose: 100 mls/hr Lisinopril (Zestril) 10 mg PO DAILY [facility] Stop: 11/06/16 09:59 Last Admin: 10/31/16 09:11 Dose: 10 mg Lorazepam (Ativan) 1 mg PO TID PRN PRN Reason: Anxiety Stop: 11/12/16 18:44 Last Admin: 10/31/16 06:17 Dose: 1 mg Metoclopramide HCl (Reglan) 10 mg IV Q6H PRN PRN Reason: Nausea/Vomiting - First Option Stop: 11/06/16 16:59 Montelukast Sodium (Singulair) 10 mg PO HS [facility] Stop: 11/06/16 20:59 Last Admin: 10/30/16 20:34 Dose: 10 mg Nitroglycerin (Ntg (Nitrostat Sublingual Tab)) 0.4 mg SL Q5M PRN PRN Reason: Chest Pain or Discomfort Stop: 11/06/16 09:18 Pantoprazole Sodium (Protonix) 40 mg PO 0600 [facility] Stop: 11/06/16 09:59 Last Admin: 10/31/16 05:57 Dose: 40 mg Piperacillin Sod/Tazobactam (Sod 4.5 gm/ Dextrose) 100 mls @ 200 mls/hr IV Q6H [facility] Stop: 11/01/16 23:59 Last Admin: 10/31/16 03:52 Dose: 200 mls/hr Potassium Chloride (Klor-Con M20) 40 meq PO TIDWM [facility] Stop: 11/13/16 11:59 Last Admin: 10/31/16 09:11 Dose: 40 meq Promethazine HCl (Phenergan) 12.5 mg IV Q6H PRN; Protocol PRN Reason: Nausea/Vomiting - Alternative Stop: 11/06/16 16:59 Fluticasone/Salmeterol (Advair 500/50) 1 puff INH RTBID [facility] Stop: 11/06/16 19:59 Last Admin: 10/31/16 08:17 Dose: Not Given - Assessment/Plan (1) Acute exacerbation of chronic obstructive airways disease Acute J44.1 - CHRONIC OBSTRUCTIVE PULMONARY DISEASE W (ACUTE) EXACERBATION Comment/Plan: Continue the current nebulizer 60 mg IV q.6 hours along with antibiotics DVT and GI prophylaxis patient remains to on BiPAP at this time and would try her off off the BiPAP during the day and keep her on BiPAP at nighttime if she tolerates continue other supportive care would repeat a blood gas in the morning long-term prognosis guarded (2) Acute respiratory failure Acute J96.00 - ACUTE RESPIRATORY FAILURE, UNSP W HYPOXIA OR HYPERCAPNIA hypercapnia J96.02 - Acute respiratory failure with hypercapnia Comment/Plan: No change in current treatment with acute respiratory failure continue BiPAP patient remains critically ill she can get intubated and therefore would follow the patient closely and keep her on monitored floor (3) Bronchopneumonia Acute J18.0 - BRONCHOPNEUMONIA, UNSPECIFIED ORGANISM Comment/Plan: No bronchopneumonia is a very obvious on CT scan (4) Hypoxia Acute R09.02 - HYPOXEMIA Comment/Plan: Continue the current treatment with oxygen and BiPAP I personally saw and evaluated the patient.: Yes Case Care Discussed with: Patient
[2016-10-31] MEDS: FLUTICASONE/SALMETEROL 500/50 DISKUS INH SCH ×2 (08:17→21:19)
[2016-10-31] MEDS: Levofloxacin 750 mg/150 ml D5W 750 MG/150 ML RTU IV SCH (09:11)
[2016-10-31] MEDS: FUROSEMIDE 40 MG/4 ML VIAL IV SCH (09:11)
[2016-10-31] MEDS: POTASSIUM CHLORIDE 20 MEQ TAB PO SCH ×3 (09:11→16:56)
[2016-10-31] MEDS: ACETAZOLAMIDE 250 MG TAB PO SCH (09:11)
[2016-10-31] MEDS: METOCLOPRAMIDE 10 MG TAB PO SCH ×4 (09:11→20:16)
[2016-10-31] MEDS: LISINOPRIL 10 MG TAB PO SCH (09:11)
[2016-10-31] MEDS: BuPROPion 150 MG SR TAB PO SCH (09:11)
[2016-10-31] MEDS: ALBUTEROL 0.083% 3 ML NEB NEB PRN (10:49)
[2016-10-31] MEDS ORDERED: Pharmacy Review for Metformin - IV Contrast Given SCH (12:00)
[2016-10-31] MEDS: PROBIOTIC BLEND TAB PO SCH ×2 (12:26→16:56)
--- NOTE | 2016-10-31 14:29 | DIRPT ---
CLINICAL DATA: Shortness of breath and chest pain EXAM: CT ANGIOGRAPHY CHEST WITH CONTRAST TECHNIQUE: Multidetector CT imaging of the chest was performed using the standard protocol during bolus administration of intravenous contrast. Multiplanar CT image reconstructions and MIPs were obtained to evaluate the vascular anatomy. CONTRAST: 100 mL Isovue 370 COMPARISON: 08/21/2013. FINDINGS: The lungs are well aerated and demonstrate diffuse emphysematous changes particularly in the apices. A small 3 mm nodule is noted in the subpleural region in the posterior right lower lobe best seen on image number 84 series 4. A small stable nodule is noted in the lateral aspect of the left lower lobe best seen on image number 69 of series 4. It again measures 4 mm. Additionally, a 5-6 mm somewhat nodular appearing density is noted in the right lung apex. This is best noted on image number 14 of series 4. This was not well appreciated on the prior exam. No focal infiltrate is seen. The thoracic inlet is within normal limits. The thoracic aorta shows no dissection or significant aneurysmal dilatation. Pulmonary artery shows a normal branching pattern without focal filling defect to suggest pulmonary embolism. No significant hilar or mediastinal adenopathy is noted. No acute bony abnormality is noted. Review of the MIP images confirms the above findings. IMPRESSION: No evidence of pulmonary embolism. Scattered pulmonary nodules as described. Some of these are stable from a prior exam. One in the right apex is new from the prior exam. If the patient is at high risk for bronchogenic carcinoma, follow-up chest CT at 6-12 months is recommended. If the patient is at low risk for bronchogenic carcinoma, follow-up chest CT at 12 months is recommended. This recommendation follows the consensus statement: Guidelines for Management of Small Pulmonary Nodules Detected on CT Scans: A Statement from the Fleischner Society as published in Radiology 2005;237:395-400. Electronically Signed By: Mateo Solis M.D. On: 10/31/2016 14:27
[2016-10-31] MEDS: ENOXAPARIN 40 MG/0.4 ML PFS SQ SCH (16:56)
--- NOTE | 2016-10-31 16:58 | GENMEDPROG ---
Subjective Note: Patient sleeping in confused. I met at length with the patient and her son and [id number]. Patient was seen twice today. She continues to require BiPAP for P CO2 use in the 80s. She has been in the hospital for 8 days and does not appear to have responded to above treatment. Notes Reviewed: Yes Events from last night noted and discussed with Clinical Staff Current Medication List: Reviewed Currently: Reports: Cough, GARCIA, SOB DVT Prophylaxis: Yes - Physical Examination Vital Signs and I&O: Last Vital Signs Temp 98.5 F 10/31/16 15:33 Pulse 100 10/31/16 15:33 Resp 18 10/31/16 15:33 BP 137/66 10/31/16 15:33 Pulse Ox 98 10/31/16 15:33 Oxygen Pulse Oxygen Saturation 98 O2 Device Nasal Cannula Oxygen Flow Rate 2.5 Fraction of Inspired Oxygen ( 30 FIO2) Intake & Output 10/28/16 10/29/16 10/30/16 10/31/16 23:59 23:59 23:59 23:59 Intake Total 1065 1725 1668 523 Output Total 1350 1450 1850 Balance -285 275 -182 523 Patient's weight 66.406 kg 67.449 kg 67.903 kg 68.356 kg General: Alert, Oriented x3, No acute distress, Well appearing, Well nourished HEENT: Normal (Normocephalic, atraumatic;EOMI.Sclera white, Nares patent, without discharge or bleeding. No oropharyngeal lesions or erythema. Mucous membranes are dry.) Neck: Non-tender, Full range of motion, Normal Trachea alignment, Normal inspection (No cervical lymphadenopathy. No supraclavicular lymphadenopathy.), No Masses palpable, Supple Lymphatics: Normal (No cervical lymphadenopathy. No supraclavicular lymphadenopathy.) Respiratory: Diminished, Rhonchi, Tachypnea, Wheezes (occas). negative: Rales Cardiovascular: Regular rate and rhythm (No bradycardia or tachycardia), Normal S1, No Gallops,Rubs/Murmurs, Normal S2, Good Pedal Pulses (DP pulses 2+ bilaterally) GI: Normal bowel sounds (normal active sounds), Soft (non-distended), Non tender , No hepatospenomegaly, No masses Extremities/Musculoskeletal: Normal pulses (DP pulses 2+ bilaterally) Skin: Warm,Dry and Intact, No rashes, No significant lesion Neurological: Strength at 5/5 X4 ext (Motor 5/5 throughout.), Normal tone, Cranial nerves 3-12 NL ( 2-12 grossly intact.) Psych/Mental Status: Appropriate, Normal Affect Lab/DI/Studies Reviewed: CT ANGIOGRAPHY CHEST WITH CONTRAST TECHNIQUE: Multidetector CT imaging of the chest was performed using the standard protocol during bolus administration of intravenous contrast. Multiplanar CT image reconstructions and MIPs were obtained to evaluate the vascular anatomy. CONTRAST: 100 mL Isovue 370 COMPARISON: 08/21/2013. FINDINGS: The lungs are well aerated and demonstrate diffuse emphysematous changes particularly in the apices. A small 3 mm nodule is noted in the subpleural region in the posterior right lower lobe best seen on image number 84 series 4. A small stable nodule is noted in the lateral aspect of the left lower lobe best seen on image number 69 of series 4. It again measures 4 mm. Additionally, a 5-6 mm somewhat nodular appearing density is noted in the right lung apex. This is best noted on image number 14 of series 4. This was not well appreciated on the prior exam. No focal infiltrate is seen. The thoracic inlet is within normal limits. The thoracic aorta shows no dissection or significant aneurysmal dilatation. Pulmonary artery shows a normal branching pattern without focal filling defect to suggest pulmonary embolism. No significant hilar or mediastinal adenopathy is noted. No acute bony abnormality is noted. Review of the MIP images confirms the above findings. IMPRESSION: No evidence of pulmonary embolism. Scattered pulmonary nodules as described. Some of these are stable from a prior exam. One in the right apex is new from the prior exam. If the patient is at high risk for bronchogenic carcinoma, follow-up chest CT at 6-12 months is recommended. If the patient is at low risk for bronchogenic carcinoma, follow-up chest CT at 12 months is recommended. This recommendation follows the consensus statement: Guidelines for Management of Small Pulmonary Nodules Detected on CT Scans: A Statement from the Fleischner Society as published in Radiology 2005;237:395-400. Electronically Signed By: Mateo Solis M.D. On: 10/31/2016 14:27 Abnormal Lab Results 10/31/16 04:30 pCO2 82.0 H* HCO3 52.0 H Total CO2 54.5 H Base Excess 22.2 H - Assessment (1) Acute respiratory failure Acute J96.00 - ACUTE RESPIRATORY FAILURE, UNSP W HYPOXIA OR HYPERCAPNIA Qualifiers: Respiratory failure complication: hypercapnia Qualified Code(s): J96.02 - Acute respiratory failure with hypercapnia Comment/Plan: 10/31/2016: Patient's hypercapnia remains profound. Her pCO2 was 89 today. She is confused. At this point I think she will require long- term treatment with BiPAP and I have consulted [facility]. 10/30/2016: Patient still acutely ill and requiring significant amounts of BiPAP will consult Dr. Armenta. Admission: Acute respiratory failure with hypercarbia requiring BiPAP. Feeling little worse today so adjustments made to her medications including intravenous Lasix along with IV steroid Zosyn Levaquin. Solu-Medrol and intensive respiratory therapy will be necessary. Will need to wean her FiO2 to an O2 sat closer to 88%. Diamox was administered for the hypercarbia and anxiety seems to make her more short of breath so Ativan will be increased as well. Chest x-ray fails to show any significant changes. ABGs in a.m. (2) Hypokalemia Acute E87.6 - HYPOKALEMIA Comment/Plan: supplement; patient will need daily potassium repletion (3) Community acquired bacterial pneumonia Acute J15.9 - UNSPECIFIED BACTERIAL PNEUMONIA Comment/Plan: Zosyn Levaquin ordered with probiotic. Patient will require 10 days total of therapy. (4) Diastolic CHF Chronic I50.30 - UNSPECIFIED DIASTOLIC (CONGESTIVE) HEART FAILURE Qualifiers: Congestive heart failure chronicity: chronic Qualified Code(s): I50.32 - Chronic diastolic (congestive) heart failure Comment/Plan: She is on oral diuretic compensated continue current medication. (5) Hyponatremia Acute E87.1 - HYPO-OSMOLALITY AND HYPONATREMIA Comment/Plan: Slightly better today. IV fluids and Lasix were administered. (6) Acute exacerbation of chronic obstructive airways disease Acute J44.1 - CHRONIC OBSTRUCTIVE PULMONARY DISEASE W (ACUTE) EXACERBATION Comment/Plan: IV antibiotics probiotics and steroids are ordered with nebulizer therapy. (7) Hypertension Chronic I10 - ESSENTIAL (PRIMARY) HYPERTENSION Qualifiers: Hypertension type: essential hypertension Qualified Code(s): I10 - Essential (primary) hypertension Comment/Plan: Stable continue current medication KATERINE-inhibitor, Cardizem with Lasix (8) Leukocytosis Acute D72.829 - ELEVATED WHITE BLOOD CELL COUNT, UNSPECIFIED Qualifiers: Leukocytosis type: bandemia Qualified Code(s): D72.825 - Bandemia Comment/Plan: Noted improving. (9) Tobacco abuse Acute Z72.0 - TOBACCO USE Comment/Plan: Unfortunately she continues to smoke although claims to only be smoking a pack cigarettes a month. Discussed more than 10 minutes smoking cessation and she agrees to stop. She indicated a desire to go on the Wellbutrin to help her quit. (10) Gastroesophageal reflux disease Chronic K21.9 - GASTRO-ESOPHAGEAL REFLUX DISEASE WITHOUT ESOPHAGITIS Qualifiers: Esophagitis presence: esophagitis presence not specified Qualified Code(s) : K21.9 - Gastro-esophageal reflux disease without esophagitis Comment/Plan: Proton pump inhibition twice daily (11) Acute respiratory distress Resolved R06.00 - DYSPNEA, UNSPECIFIED Comment/Plan: Acutely short of breath today and adjustments made in her BiPAP according to her needs. IV medications ordered. - Plan Continue present care. Discussed patient's care at length with her family. They agree with trying can drip. If [facility] does not work patient will require hospice care. Disposition Plan: Home versus [facility] when stable may also need group home facility. Case Care Discussed with: Patient, Family, Nursing Staff Education/Counseling Given To: Patient, Family Member Education/Counseling Given Regarding: Diagnosis, Treatment, Prognosis, Follow Up , Disposition Plan Total Time: 45 minutes Critical Care: Yes Couseling Time (>50% in counseling/coordination): No
[2016-10-31] MEDS: MONTELUKAST SODIUM 10 MG TAB PO SCH (20:16)
[2016-11-01] MEDS: Albuterol/Ipratropium Neb 3 ML NEB NEB SCH ×2 (02:22→08:56)
[2016-11-01] MEDS: PIPERACILLIN AND TAZOBACTAM 4.5 GM in D5W 100 ML IV SCH ×4 (03:06→21:00)
[2016-11-01 04:29] LABS: ALLEN'S TEST PASS; BEb 18.5 (+/- 2); TCO2 50.1 MMOL/L (23-27)
[2016-11-01 04:44] LABS: ABG Draw Site Right Radial
[2016-11-01 04:45] LABS: BI-PAP 16/8 cm H2O
[2016-11-01] MEDS: METHYLPREDNISOLONE 125 MG/2 ML VIAL IV SCH ×4 (04:57→21:00)
[2016-11-01] MEDS: PANTOPRAZOLE 40 MG TAB PO SCH (04:58)
[2016-11-01] MEDS: FLUTICASONE/SALMETEROL 500/50 DISKUS INH SCH ×2 (08:56→19:51)
[2016-11-01] MEDS: Levofloxacin 750 mg/150 ml D5W 750 MG/150 ML RTU IV SCH (09:43)
[2016-11-01] MEDS: FUROSEMIDE 40 MG/4 ML VIAL IV SCH (09:44)
[2016-11-01] MEDS: LORAZEPAM 1 MG TAB PO PRN ×2 (09:44→17:19)
[2016-11-01] MEDS: POTASSIUM CHLORIDE 20 MEQ TAB PO SCH ×3 (09:45→17:10)
[2016-11-01] MEDS: LISINOPRIL 10 MG TAB PO SCH (09:45)
[2016-11-01] MEDS: METOCLOPRAMIDE 10 MG TAB PO SCH ×4 (09:45→19:38)
[2016-11-01] MEDS: BuPROPion 150 MG SR TAB PO SCH (09:45)
[2016-11-01] MEDS ORDERED: NYSTATIN CREAM 15 GM TUBE TOP SCH (12:00)
[2016-11-01] MEDS: FLUCONAZOLE 100 MG TAB PO SCH (13:00)
[2016-11-01] MEDS: PROBIOTIC BLEND TAB PO SCH ×2 (13:01→17:10)
[2016-11-01] MEDS: NYSTATIN CREAM 15 GM TUBE TOP SCH ×2 (13:01→19:37)
[2016-11-01] MEDS: IPRATROPIUM 0.02% 2.5 ML NEB NEB SCH ×2 (14:08→19:50)
--- NOTE | 2016-11-01 14:08 | PCM.PULM ---
Chief Complaint: Acute respiratory failure on chronic with hypercapnia COPD exacerbation Broncho pneumonia Hypoxia Patient has been on nasal cannula oxygen most in the morning and she started to have dyspnea and was put on BIPAP after lunch. She is alert and responsive and has been confused on and off. Current medication list and notes reviewed:yes, Events from last night noted and discussed with Clinical Staff DVT prophylaxis:yes - Physical Examination Vital Signs and I&O: Last Vital Signs Temp 97.5 F 11/01/16 11:47 Pulse 119 11/01/16 12:00 Resp 22 11/01/16 11:47 BP 145/74 11/01/16 11:47 Pulse Ox 94 11/01/16 11:47 Oxygen Pulse Oxygen Saturation 94 O2 Device Nasal Cannula Oxygen Flow Rate 2.5 Fraction of Inspired Oxygen ( 30 FIO2) Intake & Output 10/29/16 10/30/16 10/31/16 11/01/16 23:59 23:59 23:59 23:59 Intake Total 1725 1668 1407 575 Output Total 1450 1850 2050 Balance 163 -921 -649 575 Patient's weight 67.449 kg 67.903 kg 68.356 kg General: Alert, Cooperative, Moderate distress, Weakness, Fatigue Respiratory: Accessory Muscle Use, Diminished, Rhonchi, Tachypnea Cardiovascular: Regular rate, Regular rate and rhythm, Normal S1, No Gallops, Rubs/Murmurs, Normal S2 GI: Normal bowel sounds, Soft, Non tender, No hepatospenomegaly, No masses Extremities/Musculoskeletal: Normal pulses Skin: Warm,Dry and Intact, No rashes, No breakdown, No significant lesion Neurological: Normal speech, Normal tone, Cranial nerves 3-12 NL Psych/Mental Status: Cooperative, Anxious, Confused, Drowsy Result Diagrams: 10/30/16 06:25 10/30/16 06:25 Labs (last 24 hours): Laboratory Results - last 24 hr 11/01/16 04:10 Puncture Site Right radial pH 7.400 pCO2 77.0 H* pO2 52.0 L HCO3 47.7 H Total CO2 50.1 H Base Excess 18.5 H FiO2 % 30 Mode BiPAP 19/06 Specimen Drawn By [facility] Lab/DI/Studies Reviewed: EKG: NSR, NO ST or ST wave changes noted Medications: Benzonatate (Tessalon) 200 mg PO Q8H PRN PRN Reason: Cough - First Option Stop: 11/06/16 16:59 Methylprednisolone Sodium Succinate (Solu-Medrol) 60 mg IV Q6H [facility] Stop: 11/13/16 15:59 Last Admin: 10/31/16 09:11 Dose: 60 mg Zolpidem Tartrate (Ambien) 5 mg PO 2100,2200 PRN PRN Reason: Sleep or Insomnia Stop: 11/06/16 16:59 Last Admin: 10/30/16 20:43 Dose: 5 mg Acetaminophen (Tylenol Tablet) 325 mg PO Q6H PRN; Protocol PRN Reason: Mild Pain or Fever above 100.4 Stop: 11/06/16 16:59 Fluconazole (Diflucan) 100 mg PO DAILY [facility] Stop: 11/03/16 09:01 Last Admin: 11/01/16 13:00 Dose: 100 mg Piperacillin Sod/Tazobactam (Sod 4.5 gm/ Dextrose) 100 mls @ 200 mls/hr IV Q6H [facility] Stop: 11/01/16 23:59 Last Admin: 11/01/16 11:33 Dose: 200 mls/hr Potassium Chloride (Klor-Con M20) 40 meq PO TIDWM [facility] Stop: 11/13/16 11:59 Last Admin: 11/01/16 13:01 Dose: 40 meq Bupropion HCl (Wellbutrin-Sr) 150 mg PO DAILY [facility] Stop: 11/10/16 16:59 Last Admin: 10/31/16 09:11 Dose: 150 mg Chlorphenir/Hydrocodone Polistirex (Tussionex) 5 ml PO BID PRN PRN Reason: Cough - Alternative Stop: 11/06/16 16:59 Diltiazem HCl (Cardizem Cd) 240 mg PO QAM [facility] Stop: 11/12/16 11:59 Last Admin: 10/31/16 09:11 Dose: 240 mg Enoxaparin Sodium (Lovenox) 40 mg SQ Q24H [facility] Stop: 11/06/16 17:59 Last Admin: 10/30/16 17:34 Dose: 40 mg Furosemide (Lasix) 40 mg IV DAILY [facility] Stop: 11/11/16 08:59 Last Admin: 10/31/16 09:11 Dose: 40 mg Lact Acid/Bifidobact/Lact [place]/Streptoc Th (Wendie Q) 1 tab PO BIDLS [facility] Stop: 11/06/16 16:59 Last Admin: 10/30/16 17:34 Dose: 1 tab Lisinopril (Zestril) 10 mg PO DAILY [facility] Stop: 11/06/16 09:59 Last Admin: 10/31/16 09:11 Dose: 10 mg Lorazepam (Ativan) 1 mg PO TID PRN PRN Reason: Anxiety Stop: 11/12/16 18:44 Last Admin: 10/31/16 06:17 Dose: 1 mg Metoclopramide HCl (Reglan) 10 mg IV Q6H PRN PRN Reason: Nausea/Vomiting - First Option Stop: 11/06/16 16:59 Montelukast Sodium (Singulair) 10 mg PO HS [facility] Stop: 11/06/16 20:59 Last Admin: 10/30/16 20:34 Dose: 10 mg Nitroglycerin (Ntg (Nitrostat Sublingual Tab)) 0.4 mg SL Q5M PRN PRN Reason: Chest Pain or Discomfort Stop: 11/06/16 09:18 Pantoprazole Sodium (Protonix) 40 mg PO 0600 [facility] Stop: 11/06/16 09:59 Last Admin: 10/31/16 05:57 Dose: 40 mg Piperacillin Sod/Tazobactam (Sod 4.5 gm/ Dextrose) 100 mls @ 200 mls/hr IV Q6H [facility] Stop: 11/01/16 23:59 Last Admin: 10/31/16 03:52 Dose: 200 mls/hr Potassium Chloride (Klor-Con M20) 40 meq PO TIDWM [facility] Stop: 11/13/16 11:59 Last Admin: 10/31/16 09:11 Dose: 40 meq Promethazine HCl (Phenergan) 12.5 mg IV Q6H PRN; Protocol PRN Reason: Nausea/Vomiting - Alternative Stop: 11/06/16 16:59 Fluticasone/Salmeterol (Advair 500/50) 1 puff INH RTBID [facility] Stop: 11/06/16 19:59 Last Admin: 10/31/16 08:17 Dose: Not Given Levalbuterol HCl (Xopenex 1.25 Mg) 1.25 mg NEB RTQ6 [facility] Stop: 11/15/16 13:59 Last Admin: 12/29/16 14:09 Dose: 1.25 mg - Assessment/Plan (1) Acute exacerbation of chronic obstructive airways disease Acute J44.1 - CHRONIC OBSTRUCTIVE PULMONARY DISEASE W (ACUTE) EXACERBATION Comment/Plan: Patient will be a good candidate for [facility]. Continue the current nebulizer 60 mg IV q.6 hours along with antibiotics DVT and GI prophylaxis patient remains to on BiPAP at this time and would try her off off the BiPAP during the day and keep her on BiPAP at nighttime if she tolerates continue other supportive care would repeat a blood gas in the morning long-term prognosis guarded (2) Acute respiratory failure Acute J96.00 - ACUTE RESPIRATORY FAILURE, UNSP W HYPOXIA OR HYPERCAPNIA hypercapnia J96.02 - Acute respiratory failure with hypercapnia Comment/Plan: No change in current treatment with acute respiratory failure continue BiPAP patient remains critically ill she can get intubated and therefore would follow the patient closely and keep her on monitored floor (3) Bronchopneumonia Acute J18.0 - BRONCHOPNEUMONIA, UNSPECIFIED ORGANISM Comment/Plan: No bronchopneumonia is a very obvious on CT scan (4) Hypoxia Acute R09.02 - HYPOXEMIA Comment/Plan: Continue the current treatment with oxygen and BiPAP I personally saw and evaluated the patient.: Yes Case Care Discussed with: Patient Education/Counseling Given To: Patient Education/Counseling Given Regarding: Diagnosis, Treatment, Prognosis, Follow Up , Disposition Plan
[2016-11-01] MEDS: LEVALBUTEROL 1.25 MG in 3 ML NEB NEB SCH ×2 (14:09→19:46)
[2016-11-01] MEDS: ENOXAPARIN 40 MG/0.4 ML PFS SQ SCH (17:10)
--- NOTE | 2016-11-01 18:00 | GENMEDPROG ---
Currently: Reports: Cough, GARCIA, SOB DVT Prophylaxis: Yes - Physical Examination Vital Signs and I&O: Last Vital Signs Temp 98.4 F 11/01/16 15:23 Pulse 111 11/01/16 15:23 Resp 24 11/01/16 15:23 BP 146/66 11/01/16 15:23 Pulse Ox 88 L 11/01/16 15:23 Oxygen Pulse Oxygen Saturation 88 O2 Device Nasal Cannula Oxygen Flow Rate 2.5 Fraction of Inspired Oxygen ( 30 FIO2) Intake & Output 10/29/16 10/30/16 10/31/16 11/01/16 23:59 23:59 23:59 23:59 Intake Total 1725 1668 1407 1149 Output Total 1450 1850 2050 Balance 651 -473 -239 1149 Patient's weight 67.449 kg 67.903 kg 68.356 kg General: Alert, Oriented x3, No acute distress, Well appearing, Well nourished HEENT: Normal (Normocephalic, atraumatic;EOMI.Sclera white, Nares patent, without discharge or bleeding. No oropharyngeal lesions or erythema. Mucous membranes are dry.) Neck: Non-tender, Full range of motion, Normal Trachea alignment, Normal inspection (No cervical lymphadenopathy. No supraclavicular lymphadenopathy.), No Masses palpable, Supple Lymphatics: Normal (No cervical lymphadenopathy. No supraclavicular lymphadenopathy.) Respiratory: Diminished, Rhonchi, Tachypnea, Wheezes (occas). negative: Rales Cardiovascular: Regular rate and rhythm (No bradycardia or tachycardia), Normal S1, No Gallops,Rubs/Murmurs, Normal S2, Good Pedal Pulses (DP pulses 2+ bilaterally) GI: Normal bowel sounds (normal active sounds), Soft (non-distended), Non tender , No hepatospenomegaly, No masses Extremities/Musculoskeletal: Normal pulses (DP pulses 2+ bilaterally) Skin: Warm,Dry and Intact, No rashes, No significant lesion Neurological: Strength at 5/5 X4 ext (Motor 5/5 throughout.), Normal tone, Cranial nerves 3-12 NL ( 2-12 grossly intact.) Psych/Mental Status: Appropriate, Normal Affect Lab/DI/Studies Reviewed: Abnormal Lab Results 11/01/16 04:10 pCO2 77.0 H* pO2 52.0 L HCO3 47.7 H Total CO2 50.1 H Base Excess 18.5 H - Assessment (1) Acute respiratory failure Acute J96.00 - ACUTE RESPIRATORY FAILURE, UNSP W HYPOXIA OR HYPERCAPNIA Qualifiers: Respiratory failure complication: hypercapnia Qualified Code(s): J96.02 - Acute respiratory failure with hypercapnia Comment/Plan: 10/31/2016: Patient's hypercapnia remains profound. Her pCO2 was 89 today. She is confused. At this point I think she will require long- term treatment with BiPAP and I have consulted [facility]. 10/30/2016: Patient still acutely ill and requiring significant amounts of BiPAP will consult Dr. Armenta. Admission: Acute respiratory failure with hypercarbia requiring BiPAP. Feeling little worse today so adjustments made to her medications including intravenous Lasix along with IV steroid Zosyn Levaquin. Solu-Medrol and intensive respiratory therapy will be necessary. Will need to wean her FiO2 to an O2 sat closer to 88%. Diamox was administered for the hypercarbia and anxiety seems to make her more short of breath so Ativan will be increased as well. Chest x-ray fails to show any significant changes. ABGs in a.m. (2) Hypokalemia Acute E87.6 - HYPOKALEMIA Comment/Plan: supplement; patient will need daily potassium repletion (3) Community acquired bacterial pneumonia Acute J15.9 - UNSPECIFIED BACTERIAL PNEUMONIA Comment/Plan: Zosyn Levaquin ordered with probiotic. Patient will require 10 days total of therapy. (4) Diastolic CHF Chronic I50.30 - UNSPECIFIED DIASTOLIC (CONGESTIVE) HEART FAILURE Qualifiers: Congestive heart failure chronicity: chronic Qualified Code(s): I50.32 - Chronic diastolic (congestive) heart failure Comment/Plan: She is on oral diuretic compensated continue current medication. (5) Hyponatremia Acute E87.1 - HYPO-OSMOLALITY AND HYPONATREMIA Comment/Plan: Slightly better today. IV fluids and Lasix were administered. (6) Acute exacerbation of chronic obstructive airways disease Acute J44.1 - CHRONIC OBSTRUCTIVE PULMONARY DISEASE W (ACUTE) EXACERBATION Comment/Plan: IV antibiotics probiotics and steroids are ordered with nebulizer therapy. (7) Hypertension Chronic I10 - ESSENTIAL (PRIMARY) HYPERTENSION Qualifiers: Hypertension type: essential hypertension Qualified Code(s): I10 - Essential (primary) hypertension Comment/Plan: Stable continue current medication KATERINE-inhibitor, Cardizem with Lasix (8) Leukocytosis Acute D72.829 - ELEVATED WHITE BLOOD CELL COUNT, UNSPECIFIED Qualifiers: Leukocytosis type: bandemia Qualified Code(s): D72.825 - Bandemia Comment/Plan: Noted improving. (9) Tobacco abuse Acute Z72.0 - TOBACCO USE Comment/Plan: Unfortunately she continues to smoke although claims to only be smoking a pack cigarettes a month. Discussed more than 10 minutes smoking cessation and she agrees to stop. She indicated a desire to go on the Wellbutrin to help her quit. (10) Gastroesophageal reflux disease Chronic K21.9 - GASTRO-ESOPHAGEAL REFLUX DISEASE WITHOUT ESOPHAGITIS Qualifiers: Esophagitis presence: esophagitis presence not specified Qualified Code(s) : K21.9 - Gastro-esophageal reflux disease without esophagitis Comment/Plan: Proton pump inhibition twice daily (11) Acute respiratory distress Resolved R06.00 - DYSPNEA, UNSPECIFIED Comment/Plan: Acutely short of breath today and adjustments made in her BiPAP according to her needs. IV medications ordered.
[2016-11-01] MEDS: MONTELUKAST SODIUM 10 MG TAB PO SCH (19:39)
[2016-11-01] MEDS: ZOLPIDEM TARTRATE 5 MG TAB PO PRN (20:58)
[2016-11-02] MEDS: IPRATROPIUM 0.02% 2.5 ML NEB NEB SCH ×4 (02:30→19:01)
[2016-11-02] MEDS: LEVALBUTEROL 1.25 MG in 3 ML NEB NEB SCH ×4 (02:30→19:00)
[2016-11-02] MEDS: METHYLPREDNISOLONE 125 MG/2 ML VIAL IV SCH ×4 (03:35→20:01)
[2016-11-02 05:31] LABS: ALLEN'S TEST PASS; BEb 18.1 (+/- 2); TCO2 50.5 MMOL/L (23-27)
[2016-11-02 05:35] LABS: ABG Draw Site Right Brachial; MODE BIPAP 16/8 RATE
[2016-11-02] MEDS: NYSTATIN CREAM 15 GM TUBE TOP SCH ×3 (05:53→20:00)
[2016-11-02] MEDS: PANTOPRAZOLE 40 MG TAB PO SCH (05:53)
[2016-11-02] MEDS: LISINOPRIL 10 MG TAB PO SCH (08:02)
[2016-11-02] MEDS: FUROSEMIDE 40 MG/4 ML VIAL IV SCH ×2 (08:02→15:47)
[2016-11-02] MEDS: FLUCONAZOLE 100 MG TAB PO SCH (08:03)
[2016-11-02] MEDS: ACETAZOLAMIDE 250 MG TAB PO SCH (08:03)
[2016-11-02] MEDS: POTASSIUM CHLORIDE 20 MEQ TAB PO SCH ×3 (08:03→17:37)
[2016-11-02] MEDS: METOCLOPRAMIDE 10 MG TAB PO SCH ×4 (08:03→20:01)
[2016-11-02] MEDS: BuPROPion 150 MG SR TAB PO SCH (08:03)
--- NOTE | 2016-11-02 08:05 | DIRPT ---
CLINICAL DATA: Respiratory failure EXAM: PORTABLE CHEST 1 VIEW COMPARISON: CTA chest dated 10/31/2016 FINDINGS: Chronic interstitial markings/emphysematous changes. No focal consolidation. No pleural effusion or pneumothorax. The heart is normal in size. IMPRESSION: No evidence of acute cardiopulmonary disease. Electronically Signed By: Amanda Swanson M.D. On: 11/02/2016 08:02
--- NOTE | 2016-11-02 08:17 | PCM.PULM ---
Chief Complaint: Patient breathing is a little better. She is on 2.5 L/M nasal cannula oxygen this morning and was on BIPAP every night, she felt a little better this morning as compared to yesterday Current medication list and notes reviewed:yes, Events from last night noted and discussed with Clinical Staff DVT/GI prophylaxis:yes - Physical Examination Vital Signs and I&O: Last Vital Signs Temp 98.2 F 11/02/16 07:40 Pulse 102 11/02/16 07:40 Resp 29 H 11/02/16 07:40 BP 151/72 11/02/16 07:40 Pulse Ox 98 11/02/16 07:40 Oxygen Pulse Oxygen Saturation 98 O2 Device Nasal Cannula Oxygen Flow Rate 2.5 Fraction of Inspired Oxygen ( 40 FIO2) Intake & Output 10/30/16 10/31/16 11/01/16 11/02/16 23:59 23:59 23:59 23:59 Intake Total 1668 1407 1269 Output Total 1850 2050 1600 450 Balance -182 -643 -331 -450 Patient's weight 67.903 kg 68.356 kg 69.082 kg General: Alert, Oriented x3, Cooperative, Mild distress, Fatigue Respiratory: Diminished Cardiovascular: Regular rate, Regular rate and rhythm, Normal S1, No Gallops, Rubs/Murmurs, Normal S2 GI: Normal bowel sounds, Soft, Non tender, No hepatospenomegaly, No masses Extremities/Musculoskeletal: Normal pulses Skin: Warm,Dry and Intact, No rashes, No significant lesion Neurological: Normal speech, Normal tone, Cranial nerves 3-12 NL Psych/Mental Status: Appropriate, Cooperative, Confused (at times) Result Diagrams: 10/30/16 06:25 10/30/16 06:25 Labs (last 24 hours): Laboratory Results - last 24 hr 11/02/16 05:23 Puncture Site Right brachial pH 7.370 pCO2 83.0 H* pO2 74.0 L HCO3 48.0 H Total CO2 50.5 H Base Excess 18.1 H Vent Mode Bipap 16/8 FiO2 % 40 Specimen Drawn By Bentley Lab/DI/Studies Reviewed: EKG: NSR, NO ST or ST wave changes noted Chest x-ray Chest x-ray was seen personally patient seems to have hyperinflated lung field with mild pulmonary vascular congestion Medications: Albuterol (Proventil, Ventolin) 3 ml NEB Q2H PRN PRN Reason: Wheezing Stop: 11/06/16 16:59 Last Admin: 10/30/16 11:37 Dose: 3 ml Benzonatate (Tessalon) 200 mg PO Q8H PRN PRN Reason: Cough - First Option Stop: 11/06/16 16:59 Methylprednisolone Sodium Succinate (Solu-Medrol) 60 mg IV Q6H LORRI Stop: 11/13/16 15:59 Last Admin: 10/31/16 09:11 Dose: 60 mg Sodium Chloride ([place]) 2 spr KATHRYN Q30MIN PRN PRN Reason: Nasal Dryness Stop: 11/13/16 13:23 Last Admin: 10/30/16 15:16 Dose: 2 spr Zolpidem Tartrate (Ambien) 5 mg PO 2100,2200 PRN PRN Reason: Sleep or Insomnia Stop: 11/06/16 16:59 Last Admin: 10/30/16 20:43 Dose: 5 mg Acetaminophen (Tylenol Tablet) 325 mg PO Q6H PRN; Protocol PRN Reason: Mild Pain or Fever above 100.4 Stop: 11/06/16 16:59 Fluconazole (Diflucan) 100 mg PO DAILY [facility] Stop: 11/03/16 09:01 Last Admin: 11/01/16 13:00 Dose: 100 mg Furosemide (Lasix) 40 mg IV DAILY [facility] Stop: 11/11/16 08:59 Last Admin: 11/01/16 09:44 Dose: 40 mg Potassium Chloride (Klor-Con M20) 40 meq PO TIDWM [facility] Stop: 11/13/16 11:59 Last Admin: 11/01/16 13:01 Dose: 40 meq Albuterol/Ipratropium (Duoneb) 3 ml NEB RTQ6 [facility] Stop: 11/06/16 16:59 Last Admin: 10/31/16 08:16 Dose: 3 ml Bupropion HCl (Wellbutrin-Sr) 150 mg PO DAILY [facility] Stop: 11/10/16 16:59 Last Admin: 10/31/16 09:11 Dose: 150 mg Chlorphenir/Hydrocodone Polistirex (Tussionex) 5 ml PO BID PRN PRN Reason: Cough - Alternative Stop: 11/06/16 16:59 Diltiazem HCl (Cardizem Cd) 240 mg PO QAM [facility] Stop: 11/12/16 11:59 Last Admin: 10/31/16 09:11 Dose: 240 mg Enoxaparin Sodium (Lovenox) 40 mg SQ Q24H [facility] Stop: 11/06/16 17:59 Last Admin: 10/30/16 17:34 Dose: 40 mg Furosemide (Lasix) 40 mg IV DAILY [facility] Stop: 11/11/16 08:59 Last Admin: 10/31/16 09:11 Dose: 40 mg Lact Acid/Bifidobact/Lact [place]/Streptoc Th (Wendie Q) 1 tab PO BIDLS [facility] Stop: 11/06/16 16:59 Last Admin: 10/30/16 17:34 Dose: 1 tab Lisinopril (Zestril) 10 mg PO DAILY [facility] Stop: 11/06/16 09:59 Last Admin: 10/31/16 09:11 Dose: 10 mg Lorazepam (Ativan) 1 mg PO TID PRN PRN Reason: Anxiety Stop: 11/12/16 18:44 Last Admin: 10/31/16 06:17 Dose: 1 mg Metoclopramide HCl (Reglan) 10 mg IV Q6H PRN PRN Reason: Nausea/Vomiting - First Option Stop: 11/06/16 16:59 Montelukast Sodium (Singulair) 10 mg PO HS [facility] Stop: 11/06/16 20:59 Last Admin: 10/30/16 20:34 Dose: 10 mg Nitroglycerin (Ntg (Nitrostat Sublingual Tab)) 0.4 mg SL Q5M PRN PRN Reason: Chest Pain or Discomfort Stop: 11/06/16 09:18 Pantoprazole Sodium (Protonix) 40 mg PO 0600 [facility] Stop: 11/06/16 09:59 Last Admin: 10/31/16 05:57 Dose: 40 mg Promethazine HCl (Phenergan) 12.5 mg IV Q6H PRN; Protocol PRN Reason: Nausea/Vomiting - Alternative Stop: 11/06/16 16:59 Fluticasone/Salmeterol (Advair 500/50) 1 puff INH RTBID [facility] Stop: 11/06/16 19:59 Last Admin: 10/31/16 08:17 Dose: Not Given - Assessment/Plan (1) Acute exacerbation of chronic obstructive airways disease Acute J44.1 - CHRONIC OBSTRUCTIVE PULMONARY DISEASE W (ACUTE) EXACERBATION Comment/Plan: Patient has been feeling somewhat better today I encouraged her to do so minimal physiotherapy today I would continue oxygen continue steroids and to restart her on Zithromax and Rocephin started on Lasix 40 mg IV q.12 hours would check CBCs CMP and BMP on this patient and would get a sputum culture if positive. Patient will be a good candidate for [facility]. Continue the current nebulizer 60 mg IV q.6 hours along with DVT and GI prophylaxis patient remains to on BiPAP as p.r.n. , keep her on BiPAP at nighttime if she tolerates continue other supportive care would repeat a blood gas in the morning long- term prognosis guarded (2) Acute respiratory failure Acute J96.00 - ACUTE RESPIRATORY FAILURE, UNSP W HYPOXIA OR HYPERCAPNIA hypercapnia J96.02 - Acute respiratory failure with hypercapnia Comment/Plan: No change in current treatment with acute respiratory failure continue BiPAP patient remains critically ill she can get intubated and therefore would follow the patient closely and keep her on monitored floor (3) Bronchopneumonia Acute J18.0 - BRONCHOPNEUMONIA, UNSPECIFIED ORGANISM Comment/Plan: No bronchopneumonia is a very obvious on CT scan (4) Hypoxia Acute R09.02 - HYPOXEMIA Comment/Plan: Continue the current treatment with oxygen and BiPAP I personally saw and evaluated the patient.: Yes Total Face to Face Time: 35 minutes Case Care Discussed with: Patient, Family, Respiratory Therapy Education/Counseling Given To: Patient, Family Member Education/Counseling Given Regarding: Diagnosis, Treatment, Prognosis, Follow Up , Disposition Plan
[2016-11-02] MEDS: FLUTICASONE/SALMETEROL 500/50 DISKUS INH SCH ×2 (08:20→19:02)
[2016-11-02] MEDS: LORAZEPAM 1 MG TAB PO PRN ×2 (08:24→20:01)
[2016-11-02] MEDS ORDERED: FLUTICASONE/SALMETEROL 500/50 DISKUS INH SCH (09:00)
[2016-11-02] MEDS: PROBIOTIC BLEND TAB PO SCH ×2 (11:08→17:38)
[2016-11-02] MEDS: CEFTRIAXONE 1 GM in D5W 100 ML IV SCH (11:08)
[2016-11-02] MEDS: AZITHROMYCIN 500 MG in D5W 250 ML IV SCH (12:16)
[2016-11-02] MEDS: ALBUTEROL 0.083% 3 ML NEB NEB PRN (12:25)
[2016-11-02] MEDS: ENOXAPARIN 40 MG/0.4 ML PFS SQ SCH (17:38)
--- NOTE | 2016-11-02 18:35 | GENMEDPROG ---
Notes Reviewed: Yes Events from last night noted and discussed with Clinical Staff Current Medication List: Reviewed Currently: Reports: Cough, GARCIA, SOB DVT Prophylaxis: Yes - Physical Examination Vital Signs and I&O: Last Vital Signs Temp 98.1 F 11/02/16 17:31 Pulse 110 11/02/16 17:31 Resp 22 11/02/16 17:31 BP 142/70 11/02/16 17:31 Pulse Ox 94 11/02/16 17:31 Oxygen Pulse Oxygen Saturation 94 O2 Device Nasal Cannula Oxygen Flow Rate 2.5 Fraction of Inspired Oxygen ( 40 FIO2) Intake & Output 10/30/16 10/31/16 11/01/16 11/02/16 23:59 23:59 23:59 23:59 Intake Total 1668 1407 1269 1090 Output Total 1850 2050 1600 1350 Balance -182 -643 -331 -821 Patient's weight 149 lb 11.2 oz 150 lb 11.2 oz 152 lb 4.8 oz General: Alert, Oriented x3, No acute distress, Well appearing, Well nourished HEENT: Normal (Normocephalic, atraumatic;EOMI.Sclera white, Nares patent, without discharge or bleeding. No oropharyngeal lesions or erythema. Mucous membranes are dry.) Neck: Non-tender, Full range of motion, Normal Trachea alignment, Normal inspection (No cervical lymphadenopathy. No supraclavicular lymphadenopathy.), No Masses palpable, Supple Lymphatics: Normal (No cervical lymphadenopathy. No supraclavicular lymphadenopathy.) Respiratory: Diminished, Rhonchi, Tachypnea, Wheezes (occas). negative: Rales Cardiovascular: Regular rate and rhythm (No bradycardia or tachycardia), Normal S1, No Gallops,Rubs/Murmurs, Normal S2, Good Pedal Pulses (DP pulses 2+ bilaterally) GI: Normal bowel sounds (normal active sounds), Soft (non-distended), Non tender , No hepatospenomegaly, No masses Extremities/Musculoskeletal: Normal pulses (DP pulses 2+ bilaterally) Skin: Warm,Dry and Intact, No rashes, No significant lesion Neurological: Strength at 5/5 X4 ext (Motor 5/5 throughout.), Normal tone, Cranial nerves 3-12 NL ( 2-12 grossly intact.) Psych/Mental Status: Appropriate, Normal Affect - Assessment (1) Acute respiratory distress Resolved R06.00 - DYSPNEA, UNSPECIFIED Comment/Plan: Acutely short of breath today and adjustments made in her BiPAP according to her needs. IV medications ordered. (2) Acute exacerbation of chronic obstructive airways disease Acute J44.1 - CHRONIC OBSTRUCTIVE PULMONARY DISEASE W (ACUTE) EXACERBATION Comment/Plan: IV antibiotics probiotics and steroids are ordered with nebulizer therapy. (3) Community acquired bacterial pneumonia Acute J15.9 - UNSPECIFIED BACTERIAL PNEUMONIA Comment/Plan: Zosyn Levaquin ordered with probiotic. Patient will require 10 days total of therapy. (4) Diastolic CHF Chronic I50.30 - UNSPECIFIED DIASTOLIC (CONGESTIVE) HEART FAILURE Qualifiers: Congestive heart failure chronicity: chronic Qualified Code(s): I50.32 - Chronic diastolic (congestive) heart failure Comment/Plan: She is on oral diuretic compensated continue current medication. (5) Gastroesophageal reflux disease Chronic K21.9 - GASTRO-ESOPHAGEAL REFLUX DISEASE WITHOUT ESOPHAGITIS Qualifiers: Esophagitis presence: esophagitis presence not specified Qualified Code(s) : K21.9 - Gastro-esophageal reflux disease without esophagitis Comment/Plan: Proton pump inhibition twice daily (6) Hypertension Chronic I10 - ESSENTIAL (PRIMARY) HYPERTENSION Qualifiers: Hypertension type: essential hypertension Qualified Code(s): I10 - Essential (primary) hypertension Comment/Plan: Stable continue current medication KATERINE-inhibitor, Cardizem with Lasix (7) Hypokalemia Acute E87.6 - HYPOKALEMIA Comment/Plan: supplement; patient will need daily potassium repletion (8) Hyponatremia Acute E87.1 - HYPO-OSMOLALITY AND HYPONATREMIA Comment/Plan: Slightly better today. IV fluids and Lasix were administered. (9) Leukocytosis Acute D72.829 - ELEVATED WHITE BLOOD CELL COUNT, UNSPECIFIED Qualifiers: Leukocytosis type: bandemia Qualified Code(s): D72.825 - Bandemia Comment/Plan: Noted improving. (10) Tobacco abuse Acute Z72.0 - TOBACCO USE Comment/Plan: Unfortunately she continues to smoke although claims to only be smoking a pack cigarettes a month. Discussed more than 10 minutes smoking cessation and she agrees to stop. She indicated a desire to go on the Wellbutrin to help her quit. Total Time: 40 Critical Care: No Code: 14155 (12+)
[2016-11-02] MEDS: MONTELUKAST SODIUM 10 MG TAB PO SCH (20:01)
[2016-11-02] MEDS: ZOLPIDEM TARTRATE 5 MG TAB PO PRN (22:07)
[2016-11-03] MEDS: LEVALBUTEROL 1.25 MG in 3 ML NEB NEB SCH ×4 (01:13→20:10)
[2016-11-03] MEDS: IPRATROPIUM 0.02% 2.5 ML NEB NEB SCH ×4 (01:19→20:12)
[2016-11-03 04:48] LABS: ALLEN'S TEST PASS; BEb 17.2 (+/- 2); TCO2 51.7 MMOL/L (23-27)
[2016-11-03 04:52] LABS: ABG Draw Site Right Brachial
[2016-11-03 04:53] LABS: MODE BIPAP 16/8 RATE
[2016-11-03] MEDS: METHYLPREDNISOLONE 125 MG/2 ML VIAL IV SCH ×4 (04:59→20:04)
[2016-11-03] MEDS: NYSTATIN CREAM 15 GM TUBE TOP SCH ×3 (04:59→20:03)
[2016-11-03] MEDS: PANTOPRAZOLE 40 MG TAB PO SCH (05:00)
[2016-11-03 05:01] LABS: MPV 8.6 fL (7.4-10.4)
[2016-11-03 05:10] LABS: BLOOD UREA NITROGEN 33 MG/DL (7-17); CALCULATED OSMOLALITY 277 MOs/Kg (270-290); CHLORIDE 94 mEq/L (98-107); GLUCOSE 135 MG/DL (70-99); SODIUM LEVEL 139 mEq/L (137-146)
[2016-11-03 05:56] LABS: SEG NEUTROPHIL 90 % (45-76)
[2016-11-03] MEDS: POTASSIUM CHLORIDE 20 MEQ TAB PO SCH ×3 (07:24→13:38)
[2016-11-03 07:54] LABS: ALLEN'S TEST PASS; BEb 16.9 (+/- 2); TCO2 50.8 MMOL/L (23-27)
[2016-11-03 07:56] LABS: ABG Draw Site Right Radial; BI-PAP 20/10 cm H2O; SPONT. RR 21 BR/MIN; SPONT. VT 350 ML
[2016-11-03] MEDS: FLUTICASONE/SALMETEROL 500/50 DISKUS INH SCH ×2 (08:09→20:13)
[2016-11-03] MEDS: FUROSEMIDE 40 MG/4 ML VIAL IV SCH ×2 (08:26→16:38)
[2016-11-03] MEDS: LISINOPRIL 10 MG TAB PO SCH ×2 (09:03→13:38)
[2016-11-03] MEDS: METOCLOPRAMIDE 10 MG TAB PO SCH ×4 (09:03→20:04)
[2016-11-03] MEDS: BuPROPion 150 MG SR TAB PO SCH ×2 (09:03→13:39)
[2016-11-03] MEDS: CEFTRIAXONE 1 GM in D5W 100 ML IV SCH (09:35)
--- NOTE | 2016-11-03 10:30 | PCM.PULM ---
Chief Complaint: Respiratory failure acute on chronic with hypercapnia Bronchopneumonia Hypoxia COPD exacerbation Patient has been on BIPAP pressure 20/10 with fio2 40 since last night. She is alert and responsive follows commands and seems to be doing fair this morning. Her is at bedside. Current complaints: Dyspnea, GARCIA,wheeze,fatigue. Denies chest pain Notes and medication list reviewed and discussed with Clinical Staff today GI/DVT prophylaxis:yes - Physical Examination Vital Signs and I&O: Last Vital Signs Temp 97.8 F 11/03/16 08:23 Pulse 87 11/03/16 10:29 Resp 25 H 11/03/16 08:23 BP 118/64 11/03/16 08:23 Pulse Ox 99 11/03/16 10:19 Oxygen Pulse Oxygen Saturation 99 O2 Device BiPAP Oxygen Flow Rate 2 Fraction of Inspired Oxygen ( 30 FIO2) Intake & Output 10/31/16 11/01/16 11/02/16 11/03/16 23:59 23:59 23:59 23:59 Intake Total 1407 1269 1345 225 Output Total 2050 1600 2850 1050 Balance -643 -331 -1505 -825 Patient's weight 68.356 kg 69.082 kg 65.589 kg General: Alert, Oriented x3, Mild distress, Weakness, Fatigue Respiratory: Accessory Muscle Use, Diminished, Tachypnea, Wheezes Cardiovascular: Regular rate, Regular rate and rhythm, Normal S1, No Gallops, Rubs/Murmurs, Normal S2, Good Pedal Pulses (DP pulses 2+ bilaterally) GI: Normal bowel sounds, Soft, Non tender, No hepatospenomegaly, No masses Extremities/Musculoskeletal: Normal pulses Skin: Warm,Dry and Intact, No rashes, No breakdown, No significant lesion Neurological: Normal speech, Cranial nerves 3-12 NL Psych/Mental Status: Normal Affect, Cooperative Result Diagrams: 11/04/16 04:55 11/04/16 04:55 Labs (last 24 hours): Laboratory Results - last 24 hr 11/02/16 11/03/16 11/03/16 20:18 03:46 03:46 WBC 19.5 H RBC 4.22 Hgb 11.7 L Hct 37.1 MCV 88 MCH 27.6 MCHC 31.4 L RDW 14.5 Plt Count 335 MPV 8.6 Neut % (Auto) Cancelled Lymph % (Auto) Cancelled [place] % (Auto) Cancelled Eos % (Auto) Cancelled Baso % (Auto) Cancelled Absolute Neuts (auto) Cancelled Absolute Lymphs (auto) Cancelled Seg Neuts % (Manual) 90 H Band Neutrophils % 2 Lymphocytes % (Manual) 5 L Monocytes % (Manual) 3 Absolute Neutrophils 17.94 H Absolute Lymphocytes 0.98 Vacuolated Neuts Few Toxic Granulation Tr Platelet Estimate Norm RBC Morphology 1+ aniso Puncture Site pH pCO2 pO2 HCO3 Total CO2 Base Excess Vent Mode Spontaneous Rate FiO2 % Spontaneous Tidal Vol Mode BiPAP Specimen Drawn By Sodium 139 Potassium 5.4 H Chloride 94 L Carbon Dioxide 47 H Anion Gap 3 L BUN 33 H Creatinine 0.40 L Estimated GFR (MDRD) > 60 Glucose 135 H Calculated Osmolality 277 Calcium 9.0 Vgd-E-Xgporcfihto Pept 971 H Stool Occult Blood Neg 11/03/16 11/03/16 04:40 07:48 WBC RBC Hgb Hct MCV MCH MCHC RDW Plt Count MPV Neut % (Auto) Lymph % (Auto) [place] % (Auto) Eos % (Auto) Baso % (Auto) Absolute Neuts (auto) Absolute Lymphs (auto) Seg Neuts % (Manual) Band Neutrophils % Lymphocytes % (Manual) Monocytes % (Manual) Absolute Neutrophils Absolute Lymphocytes Vacuolated Neuts Toxic Granulation Platelet Estimate RBC Morphology Puncture Site Right brachial Right radial pH 7.300 L 7.320 L pCO2 99.0 H* 93.0 H* pO2 71.0 L 88.0 HCO3 48.7 H 47.9 H Total CO2 51.7 H 50.8 H Base Excess 17.2 H 16.9 H Vent Mode Bipap 16/8 Spontaneous Rate 21 FiO2 % 40 0.40 Spontaneous Tidal Vol 350 Mode BiPAP 20/10 Specimen Drawn By Bentley Arreola Sodium Potassium Chloride Carbon Dioxide Anion Gap BUN Creatinine Estimated GFR (MDRD) Glucose Calculated Osmolality Calcium Ile-R-Ftamrplmvmj Pept Stool Occult Blood Lab/DI/Studies Reviewed: EKG: NSR, NO ST or ST wave changes noted Medications: Furosemide (Lasix) 40 mg IV LASBID LORRI Stop: 11/16/16 16:59 Last Admin: 11/03/16 08:26 Dose: 40 mg Albuterol (Proventil, Ventolin) 3 ml NEB Q2H PRN PRN Reason: Wheezing Stop: 11/06/16 16:59 Last Admin: 10/30/16 11:37 Dose: 3 ml Benzonatate (Tessalon) 200 mg PO Q8H PRN PRN Reason: Cough - First Option Stop: 11/06/16 16:59 Zolpidem Tartrate (Ambien) 5 mg PO 2100,2200 PRN PRN Reason: Sleep or Insomnia Stop: 11/06/16 16:59 Last Admin: 10/30/16 20:43 Dose: 5 mg Acetaminophen (Tylenol Tablet) 325 mg PO Q6H PRN; Protocol PRN Reason: Mild Pain or Fever above 100.4 Stop: 11/06/16 16:59 Methylprednisolone Sodium Succinate (Solu-Medrol) 60 mg IV Q6H COUNTS INCLUDE 234 BEDS AT THE [facility] Stop: 11/13/16 15:59 Last Admin: 11/01/16 09:44 Dose: 60 mg Potassium Chloride (Klor-Con M20) 40 meq PO TIDWM COUNTS INCLUDE 234 BEDS AT THE [facility] Stop: 11/13/16 11:59 Last Admin: 11/01/16 13:01 Dose: 40 meq Albuterol/Ipratropium (Duoneb) 3 ml NEB RTQ6 COUNTS INCLUDE 234 BEDS AT THE [facility] Stop: 11/06/16 16:59 Last Admin: 10/31/16 08:16 Dose: 3 ml Bupropion HCl (Wellbutrin-Sr) 150 mg PO DAILY COUNTS INCLUDE 234 BEDS AT THE [facility] Stop: 11/10/16 16:59 Last Admin: 10/31/16 09:11 Dose: 150 mg Chlorphenir/Hydrocodone Polistirex (Tussionex) 5 ml PO BID PRN PRN Reason: Cough - Alternative Stop: 11/06/16 16:59 Diltiazem HCl (Cardizem Cd) 240 mg PO QAM COUNTS INCLUDE 234 BEDS AT THE [facility] Stop: 11/12/16 11:59 Last Admin: 10/31/16 09:11 Dose: 240 mg Enoxaparin Sodium (Lovenox) 40 mg SQ Q24H COUNTS INCLUDE 234 BEDS AT THE [facility] Stop: 11/06/16 17:59 Last Admin: 10/30/16 17:34 Dose: 40 mg Lact Acid/Bifidobact/Lact [place]/Streptoc Th (Wendie Q) 1 tab PO BIDLS COUNTS INCLUDE 234 BEDS AT THE [facility] Stop: 11/06/16 16:59 Last Admin: 10/30/16 17:34 Dose: 1 tab Lisinopril (Zestril) 10 mg PO DAILY COUNTS INCLUDE 234 BEDS AT THE [facility] Stop: 11/06/16 09:59 Last Admin: 10/31/16 09:11 Dose: 10 mg Lorazepam (Ativan) 1 mg PO TID PRN PRN Reason: Anxiety Stop: 11/12/16 18:44 Last Admin: 10/31/16 06:17 Dose: 1 mg Metoclopramide HCl (Reglan) 10 mg IV Q6H PRN PRN Reason: Nausea/Vomiting - First Option Stop: 11/06/16 16:59 Montelukast Sodium (Singulair) 10 mg PO HS COUNTS INCLUDE 234 BEDS AT THE [facility] Stop: 11/06/16 20:59 Last Admin: 10/30/16 20:34 Dose: 10 mg Nitroglycerin (Ntg (Nitrostat Sublingual Tab)) 0.4 mg SL Q5M PRN PRN Reason: Chest Pain or Discomfort Stop: 11/06/16 09:18 Pantoprazole Sodium (Protonix) 40 mg PO 0600 COUNTS INCLUDE 234 BEDS AT [facility] Stop: 11/06/16 09:59 Last Admin: 10/31/16 05:57 Dose: 40 mg Promethazine HCl (Phenergan) 12.5 mg IV Q6H PRN; Protocol PRN Reason: Nausea/Vomiting - Alternative Stop: 11/06/16 16:59 Fluticasone/Salmeterol (Advair 500/50) 1 puff INH RTBID COUNTS INCLUDE 234 BEDS AT THE [facility] Stop: 11/06/16 19:59 Last Admin: 10/31/16 08:17 Dose: Not Given - Assessment/Plan (1) Acute exacerbation of chronic obstructive airways disease Acute J44.1 - CHRONIC OBSTRUCTIVE PULMONARY DISEASE W (ACUTE) EXACERBATION Comment/Plan: Improving slowly. Patient continue requiring BIPAP. Would get a cxray and ABG, CBC,BMP in the morning. Would continue IV steroids, IV antibiotics, BIPAP prn, supplemental oxygen, GI/DVT prophylaxis. long-term prognosis guarded. Would continue full supportive care at this time. (2) Acute respiratory failure Acute J96.00 - ACUTE RESPIRATORY FAILURE, UNSP W HYPOXIA OR HYPERCAPNIA hypercapnia J96.02 - Acute respiratory failure with hypercapnia Comment/Plan: Slowly improving. Would continue BIPAP 20/10, IV Solu- Medrol, oxygen prn and DVT/GI prophylaxis. Would continue full supportive care and keep patient on monitored floor. (3) Hypoxia Acute R09.02 - HYPOXEMIA Comment/Plan: Continue the current treatment with BIPAP PRN and oxygen (4) Bronchopneumonia Acute J18.0 - BRONCHOPNEUMONIA, UNSPECIFIED ORGANISM
[2016-11-03] MEDS: PROBIOTIC BLEND TAB PO SCH ×3 (11:01→16:38)
[2016-11-03] MEDS: AZITHROMYCIN 500 MG in D5W 250 ML IV SCH (11:14)
[2016-11-03 11:52] LABS: ALLEN'S TEST PASS; BEb 19.7 (+/- 2); TCO2 50.9 MMOL/L (23-27)
[2016-11-03 11:53] LABS: ABG Draw Site Right Radial
[2016-11-03 11:54] LABS: BI-PAP 20/10 cm H2O
[2016-11-03] MEDS: LORAZEPAM 1 MG TAB PO PRN ×2 (14:17→20:04)
[2016-11-03] MEDS: ENOXAPARIN 40 MG/0.4 ML PFS SQ SCH (16:39)
[2016-11-03] MEDS: MONTELUKAST SODIUM 10 MG TAB PO SCH (20:04)
--- NOTE | 2016-11-03 21:08 | GENMEDPROG ---
Notes Reviewed: Yes Events from last night noted and discussed with Clinical Staff Current Medication List: Reviewed Currently: Reports: Cough, GARCIA, SOB DVT Prophylaxis: Yes - Physical Examination Vital Signs and I&O: Last Vital Signs Temp 98.0 F 11/03/16 20:33 Pulse 124 H 11/03/16 20:33 Resp 22 11/03/16 20:33 BP 152/70 11/03/16 20:33 Pulse Ox 94 11/03/16 20:33 Oxygen Pulse Oxygen Saturation 94 O2 Device Nasal Cannula Oxygen Flow Rate 3 Fraction of Inspired Oxygen ( 30 FIO2) Intake & Output 10/31/16 11/01/16 11/02/16 11/03/16 23:59 23:59 23:59 23:59 Intake Total 1407 1269 1345 1405 Output Total 2050 1600 2850 3050 Balance -258 -485 -3474 -5491 Patient's weight 150 lb 11.2 oz 152 lb 4.8 oz 144 lb 9.6 oz General: Alert, Oriented x3, No acute distress, Well appearing, Well nourished HEENT: Normal (Normocephalic, atraumatic;EOMI.Sclera white, Nares patent, without discharge or bleeding. No oropharyngeal lesions or erythema. Mucous membranes are dry.) Neck: Non-tender, Full range of motion, Normal Trachea alignment, Normal inspection (No cervical lymphadenopathy. No supraclavicular lymphadenopathy.), No Masses palpable, Supple Lymphatics: Normal (No cervical lymphadenopathy. No supraclavicular lymphadenopathy.) Respiratory: Diminished, Rhonchi, Tachypnea, Wheezes (occas). negative: Rales Cardiovascular: Regular rate and rhythm (No bradycardia or tachycardia), Normal S1, No Gallops,Rubs/Murmurs, Normal S2, Good Pedal Pulses (DP pulses 2+ bilaterally) GI: Normal bowel sounds (normal active sounds), Soft (non-distended), Non tender , No hepatospenomegaly, No masses Extremities/Musculoskeletal: Normal pulses (DP pulses 2+ bilaterally) Skin: Warm,Dry and Intact, No rashes, No significant lesion Neurological: Strength at 5/5 X4 ext (Motor 5/5 throughout.), Normal tone, Cranial nerves 3-12 NL ( 2-12 grossly intact.) Psych/Mental Status: Appropriate, Normal Affect Lab/DI/Studies Reviewed: Laboratory Results - last 24 hr 11/03/16 11/03/16 11/03/16 03:46 03:46 04:40 WBC 19.5 H RBC 4.22 Hgb 11.7 L Hct 37.1 MCV 88 MCH 27.6 MCHC 31.4 L RDW 14.5 Plt Count 335 MPV 8.6 Neut % (Auto) Cancelled Lymph % (Auto) Cancelled [place] % (Auto) Cancelled Eos % (Auto) Cancelled Baso % (Auto) Cancelled Absolute Neuts (auto) Cancelled Absolute Lymphs (auto) Cancelled Seg Neuts % (Manual) 90 H Band Neutrophils % 2 Lymphocytes % (Manual) 5 L Monocytes % (Manual) 3 Absolute Neutrophils 17.94 H Absolute Lymphocytes 0.98 Vacuolated Neuts Few Toxic Granulation Tr Platelet Estimate Norm RBC Morphology 1+ aniso Puncture Site Right brachial pH 7.300 L pCO2 99.0 H* pO2 71.0 L HCO3 48.7 H Total CO2 51.7 H Base Excess 17.2 H Vent Mode Bipap 19/06 Spontaneous Rate FiO2 % 40 Spontaneous Tidal Vol Mode BiPAP Specimen Drawn By Rakma Sodium 139 Potassium 5.4 H Chloride 94 L Carbon Dioxide 47 H Anion Gap 3 L BUN 33 H Creatinine 0.40 L Estimated GFR (MDRD) > 60 Glucose 135 H Calculated Osmolality 277 Calcium 9.0 Qnr-W-Rdwbluabyeh Pept 971 H 11/03/16 11/03/16 07:48 11:49 WBC RBC Hgb Hct MCV MCH MCHC RDW Plt Count MPV Neut % (Auto) Lymph % (Auto) [place] % (Auto) Eos % (Auto) Baso % (Auto) Absolute Neuts (auto) Absolute Lymphs (auto) Seg Neuts % (Manual) Band Neutrophils % Lymphocytes % (Manual) Monocytes % (Manual) Absolute Neutrophils Absolute Lymphocytes Vacuolated Neuts Toxic Granulation Platelet Estimate RBC Morphology Puncture Site Right radial Right radial pH 7.320 L 7.420 pCO2 93.0 H* 75.0 H* pO2 88.0 63.0 L HCO3 47.9 H 48.6 H Total CO2 50.8 H 50.9 H Base Excess 16.9 H 19.7 H Vent Mode Spontaneous Rate 21 FiO2 % 0.40 30% Spontaneous Tidal Vol 350 Mode BiPAP 23/08 23/08 Specimen Drawn By Elba Belaureliano Sodium Potassium Chloride Carbon Dioxide Anion Gap BUN Creatinine Estimated GFR (MDRD) Glucose Calculated Osmolality Calcium Rkp-V-Pokzsfiievc Pept - Assessment (1) Acute respiratory distress Resolved R06.00 - DYSPNEA, UNSPECIFIED Comment/Plan: Acutely short of breath today and adjustments made in her BiPAP according to her needs. IV medications ordered. (2) Acute exacerbation of chronic obstructive airways disease Acute J44.1 - CHRONIC OBSTRUCTIVE PULMONARY DISEASE W (ACUTE) EXACERBATION Comment/Plan: IV antibiotics probiotics and steroids are ordered with nebulizer therapy. (3) Community acquired bacterial pneumonia Acute J15.9 - UNSPECIFIED BACTERIAL PNEUMONIA Comment/Plan: Zosyn Levaquin ordered with probiotic. Patient will require 10 days total of therapy. (4) Diastolic CHF Chronic I50.30 - UNSPECIFIED DIASTOLIC (CONGESTIVE) HEART FAILURE Qualifiers: Congestive heart failure chronicity: chronic Qualified Code(s): I50.32 - Chronic diastolic (congestive) heart failure Comment/Plan: She is on oral diuretic compensated continue current medication. (5) Gastroesophageal reflux disease Chronic K21.9 - GASTRO-ESOPHAGEAL REFLUX DISEASE WITHOUT ESOPHAGITIS Qualifiers: Esophagitis presence: esophagitis presence not specified Qualified Code(s) : K21.9 - Gastro-esophageal reflux disease without esophagitis Comment/Plan: Proton pump inhibition twice daily (6) Hypertension Chronic I10 - ESSENTIAL (PRIMARY) HYPERTENSION Qualifiers: Hypertension type: essential hypertension Qualified Code(s): I10 - Essential (primary) hypertension Comment/Plan: Stable continue current medication KATERINE-inhibitor, Cardizem with Lasix (7) Hypokalemia Acute E87.6 - HYPOKALEMIA Comment/Plan: supplement; patient will need daily potassium repletion (8) Hyponatremia Acute E87.1 - HYPO-OSMOLALITY AND HYPONATREMIA Comment/Plan: Slightly better today. IV fluids and Lasix were administered. (9) Leukocytosis Acute D72.829 - ELEVATED WHITE BLOOD CELL COUNT, UNSPECIFIED Qualifiers: Leukocytosis type: bandemia Qualified Code(s): D72.825 - Bandemia Comment/Plan: Noted improving. (10) Tobacco abuse Acute Z72.0 - TOBACCO USE Comment/Plan: Unfortunately she continues to smoke although claims to only be smoking a pack cigarettes a month. Discussed more than 10 minutes smoking cessation and she agrees to stop. She indicated a desire to go on the Wellbutrin to help her quit.
[2016-11-04] MEDS: LEVALBUTEROL 1.25 MG in 3 ML NEB NEB SCH ×4 (01:49→19:39)
[2016-11-04] MEDS: IPRATROPIUM 0.02% 2.5 ML NEB NEB SCH ×4 (01:49→19:39)
[2016-11-04] MEDS: PANTOPRAZOLE 40 MG TAB PO SCH (04:25)
[2016-11-04] MEDS: METHYLPREDNISOLONE 125 MG/2 ML VIAL IV SCH ×4 (04:25→19:53)
[2016-11-04] MEDS: NYSTATIN CREAM 15 GM TUBE TOP SCH ×3 (04:26→19:54)
[2016-11-04] MEDS ORDERED: NYSTATIN CREAM 15 GM TUBE TOP SCH (05:00)
[2016-11-04 05:11] LABS: MPV 7.7 fL (7.4-10.4)
[2016-11-04 05:27] LABS: BLOOD UREA NITROGEN 31 MG/DL (7-17); CALCIUM 9.5 MG/DL (8.4-10.2); CALCULATED OSMOLALITY 270 MOs/Kg (270-290); CHLORIDE 89 mEq/L (98-107); GLUCOSE 124 MG/DL (70-99); SODIUM LEVEL 136 mEq/L (137-146)
[2016-11-04] MEDS: BuPROPion 150 MG SR TAB PO SCH (07:44)
[2016-11-04] MEDS: METOCLOPRAMIDE 10 MG TAB PO SCH ×4 (07:44→19:53)
[2016-11-04] MEDS: PROBIOTIC BLEND TAB PO SCH ×2 (07:44→15:31)
[2016-11-04] MEDS: FUROSEMIDE 40 MG/4 ML VIAL IV SCH ×2 (07:45→15:30)
[2016-11-04] MEDS: LISINOPRIL 10 MG TAB PO SCH (07:45)
[2016-11-04] MEDS: FLUTICASONE/SALMETEROL 500/50 DISKUS INH SCH ×2 (08:45→19:41)
--- NOTE | 2016-11-04 08:47 | GENMEDPROG ---
Chief Complaint: COPD exacerbation Subjective Note: Doing well, she was able to be off of BiPAP for 3 hours at a time yesterday, rested on BiPAP overnight in this morning is satting comfortably on 2 L nasal cannula oxygen. Respiratory therapy is at the bedside. Also discussed with nursing. Notes Reviewed: Yes Events from last night noted and discussed with Clinical Staff Current Medication List: Reviewed Currently: Reports: Cough, GARCIA, SOB. Denies: Constipation, Diarrhea, Nausea and Vomiting, Abdominal Pain, Fever/Chills, Chest Pain DVT Prophylaxis: Yes - Physical Examination Vital Signs and I&O: Last Vital Signs Temp 98.2 F 11/04/16 08:17 Pulse 115 11/04/16 08:17 Resp 22 11/04/16 08:17 BP 162/76 11/04/16 08:17 Pulse Ox 94 11/04/16 08:17 Oxygen Pulse Oxygen Saturation 94 O2 Device Nasal Cannula Oxygen Flow Rate 2 Fraction of Inspired Oxygen ( 30 FIO2) Intake & Output 11/02/16 11/03/16 11/04/16 11/05/16 06:59 06:59 06:59 06:59 Intake Total 814 1570 4 Output Total 0 2850 3150 Balance -1236 -1280 -1126 Patient's weight 69.082 kg 65.589 kg 65.091 kg General: Alert, Oriented x3, No acute distress, Well appearing, Well nourished HEENT: Normal (Normocephalic, atraumatic;EOMI.Sclera white, Nares patent, without discharge or bleeding. No oropharyngeal lesions or erythema. Mucous membranes are dry.) Neck: Non-tender, Full range of motion, Normal Trachea alignment, Normal inspection (No cervical lymphadenopathy. No supraclavicular lymphadenopathy.), No Masses palpable, Supple Lymphatics: Normal (No cervical lymphadenopathy. No supraclavicular lymphadenopathy.) Respiratory: Diminished, Other (Very tight breath sounds, very little air movement but no wheezing or rhonchi.). negative: Rales, Rhonchi, Tachypnea, Wheezes Cardiovascular: Regular rate and rhythm (No bradycardia or tachycardia), Normal S1, No Gallops,Rubs/Murmurs, Normal S2, Good Pedal Pulses (DP pulses 2+ bilaterally) GI: Normal bowel sounds (normal active sounds), Soft (non-distended), Non tender , No hepatospenomegaly, No masses Extremities/Musculoskeletal: Normal pulses (DP pulses 2+ bilaterally) Skin: Warm,Dry and Intact, No rashes, No significant lesion Neurological: Strength at 5/5 X4 ext (Motor 5/5 throughout.), Normal tone, Cranial nerves 3-12 NL ( 2-12 grossly intact.) Psych/Mental Status: Appropriate, Normal Affect Lab/DI/Studies Reviewed: Laboratory Tests 11/03/16 11/03/16 11/03/16 03:46 04:40 11:49 WBC 19.5 H Hgb pH 7.420 pCO2 99.0 H* 75.0 H* Potassium BUN Creatinine 11/04/16 11/04/16 04:55 04:55 WBC 22.9 H Hgb 12.1 pH pCO2 Potassium 4.5 BUN 31 H Creatinine 0.50 L - Assessment (1) Acute respiratory failure Acute J96.00 - ACUTE RESPIRATORY FAILURE, UNSP W HYPOXIA OR HYPERCAPNIA Qualifiers: Respiratory failure complication: hypercapnia Qualified Code(s): J96.02 - Acute respiratory failure with hypercapnia Comment/Plan: Due to COPD exacerbation. Patient is finally starting to improvement around, she is able to be off of BiPAP for several hours yesterday. Acute respiratory failure with hypercarbia requiring BiPAP, but starting to improve. Continue empiric IV steroids and empiric IV antibiotics. Pulmonary Dr. Armenta is following along as well. Rechecking blood gases morning. Otherwise continue present care. (2) Hypokalemia Acute E87.6 - HYPOKALEMIA Comment/Plan: supplement; patient will need daily potassium repletion (3) Acute respiratory distress Resolved R06.00 - DYSPNEA, UNSPECIFIED Comment/Plan: Improving today. (4) Acute exacerbation of chronic obstructive airways disease Acute J44.1 - CHRONIC OBSTRUCTIVE PULMONARY DISEASE W (ACUTE) EXACERBATION Comment/Plan: IV antibiotics probiotics and steroids are ordered with nebulizer therapy.
[2016-11-04 08:52] LABS: ALLEN'S TEST PASS; BEb 21.7 (+/- 2); TCO2 53.8 MMOL/L (23-27)
[2016-11-04 08:53] LABS: ABG Draw Site Right Radial
[2016-11-04] MEDS: CEFTRIAXONE 1 GM in D5W 100 ML IV SCH (09:09)
[2016-11-04] MEDS ORDERED: METOPROLOL 5 MG/5 ML SDV IV ONE ×2 (09:22→09:27)
[2016-11-04] MEDS: LORAZEPAM 1 MG TAB PO PRN ×2 (09:32→20:01)
--- NOTE | 2016-11-04 09:37 | DIRPT ---
CLINICAL DATA: Respiratory failure EXAM: PORTABLE CHEST 1 VIEW COMPARISON: 11/02/2016 FINDINGS: Midline trachea. Normal heart size. Atherosclerosis in the transverse aorta. No pleural effusion or pneumothorax. Hyperinflation and interstitial thickening. No lobar consolidation. IMPRESSION: Hyperinflation and interstitial thickening, most consistent with chronic bronchitis/COPD. No acute superimposed process. Electronically Signed By: Jay Mcclendon M.D. On: 11/04/2016 09:35
[2016-11-04] MEDS: AZITHROMYCIN 500 MG in D5W 250 ML IV SCH (10:58)
--- NOTE | 2016-11-04 12:17 | CAPUEKG ---
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
[2016-11-04] MEDS: LORAZEPAM 2 MG/ML VIAL IV PRN (14:13)
[2016-11-04] MEDS: ENOXAPARIN 40 MG/0.4 ML PFS SQ SCH (16:28)
[2016-11-04] MEDS: MONTELUKAST SODIUM 10 MG TAB PO SCH (19:53)
[2016-11-04] MEDS: ZOLPIDEM TARTRATE 5 MG TAB PO PRN (22:27)
[2016-11-05] MEDS: IPRATROPIUM 0.02% 2.5 ML NEB NEB SCH ×4 (01:24→20:12)
[2016-11-05] MEDS: LEVALBUTEROL 1.25 MG in 3 ML NEB NEB SCH ×4 (01:25→20:16)
[2016-11-05] MEDS: METHYLPREDNISOLONE 125 MG/2 ML VIAL IV SCH ×4 (04:21→22:24)
[2016-11-05] MEDS: PANTOPRAZOLE 40 MG TAB PO SCH (04:21)
[2016-11-05] MEDS: NYSTATIN CREAM 15 GM TUBE TOP SCH ×3 (04:22→20:33)
[2016-11-05] MEDS: FLUTICASONE/SALMETEROL 500/50 DISKUS INH SCH ×2 (08:33→20:22)
[2016-11-05] MEDS: LISINOPRIL 10 MG TAB PO SCH (08:53)
[2016-11-05] MEDS: FUROSEMIDE 40 MG/4 ML VIAL IV SCH ×2 (08:53→17:28)
[2016-11-05] MEDS: METOCLOPRAMIDE 10 MG TAB PO SCH ×4 (08:53→20:34)
[2016-11-05] MEDS: BuPROPion 150 MG SR TAB PO SCH (08:53)
[2016-11-05] MEDS: ACETAZOLAMIDE 250 MG TAB PO SCH (08:53)
--- NOTE | 2016-11-05 11:03 | GENMEDPROG ---
Subjective Note: Patient looking much better than previously. She is sitting up in bed eating her breakfast off BiPAP. Notes Reviewed: Yes Events from last night noted and discussed with Clinical Staff Current Medication List: Reviewed Currently: Reports: Cough, GARCIA, SOB. Denies: Constipation, Diarrhea, Nausea and Vomiting, Abdominal Pain, Fever/Chills, Chest Pain DVT Prophylaxis: Yes - Physical Examination Vital Signs and I&O: Last Vital Signs Temp 97.7 F 11/05/16 09:10 Pulse 133 H 11/05/16 09:10 Resp 20 11/05/16 09:10 BP 140/71 11/05/16 09:10 Pulse Ox 90 L 11/05/16 09:10 Oxygen Pulse Oxygen Saturation 90 O2 Device Nasal Cannula Oxygen Flow Rate 1 Fraction of Inspired Oxygen ( 30 FIO2) Intake & Output 11/02/16 11/03/16 11/04/16 11/05/16 23:59 23:59 23:59 23:59 Intake Total 1345 1405 2604 60 Output Total 2850 3050 2850 740 Balance -1505 -1645 -246 -035 Patient's weight 69.082 kg 65.589 kg 65.091 kg 66.224 kg General: Alert, Oriented x3, No acute distress, Well appearing, Well nourished HEENT: Normal (Normocephalic, atraumatic;EOMI.Sclera white, Nares patent, without discharge or bleeding. No oropharyngeal lesions or erythema. Mucous membranes are dry.) Neck: Non-tender, Full range of motion, Normal Trachea alignment, Normal inspection (No cervical lymphadenopathy. No supraclavicular lymphadenopathy.), No Masses palpable, Supple Lymphatics: Normal (No cervical lymphadenopathy. No supraclavicular lymphadenopathy.) Respiratory: Diminished, Other (Very tight breath sounds, very little air movement but no wheezing or rhonchi.). negative: Rales, Rhonchi, Tachypnea, Wheezes Cardiovascular: Regular rate and rhythm (No bradycardia or tachycardia), Normal S1, No Gallops,Rubs/Murmurs, Normal S2, Good Pedal Pulses (DP pulses 2+ bilaterally) GI: Normal bowel sounds (normal active sounds), Soft (non-distended), Non tender , No hepatospenomegaly, No masses Extremities/Musculoskeletal: Normal pulses (DP pulses 2+ bilaterally) Skin: Warm,Dry and Intact, No rashes, No significant lesion Neurological: Strength at 5/5 X4 ext (Motor 5/5 throughout.), Normal tone, Cranial nerves 3-12 NL ( 2-12 grossly intact.) Psych/Mental Status: Appropriate, Normal Affect - Assessment (1) Acute respiratory failure Acute J96.00 - ACUTE RESPIRATORY FAILURE, UNSP W HYPOXIA OR HYPERCAPNIA Qualifiers: Respiratory failure complication: hypercapnia Qualified Code(s): J96.02 - Acute respiratory failure with hypercapnia Comment/Plan: Due to COPD exacerbation. Patient is finally starting to improvement around, she is able to be off of BiPAP for several hours yesterday. Acute respiratory failure with hypercarbia requiring BiPAP, but starting to improve. Continue empiric IV steroids and empiric IV antibiotics. Pulmonary Dr. Armenta is following along as well. Rechecking blood gases morning. Otherwise continue present care. (2) Hypokalemia Acute E87.6 - HYPOKALEMIA Comment/Plan: supplement; patient will need daily potassium repletion (3) Diastolic CHF Chronic I50.30 - UNSPECIFIED DIASTOLIC (CONGESTIVE) HEART FAILURE Qualifiers: Congestive heart failure chronicity: chronic Qualified Code(s): I50.32 - Chronic diastolic (congestive) heart failure Comment/Plan: She is on oral diuretic compensated continue current medication. (4) Hyponatremia Acute E87.1 - HYPO-OSMOLALITY AND HYPONATREMIA Comment/Plan: Slightly better today. IV fluids and Lasix were administered. (5) Acute exacerbation of chronic obstructive airways disease Acute J44.1 - CHRONIC OBSTRUCTIVE PULMONARY DISEASE W (ACUTE) EXACERBATION Comment/Plan: IV antibiotics probiotics and steroids are ordered with nebulizer therapy. (6) Hypertension Chronic I10 - ESSENTIAL (PRIMARY) HYPERTENSION Qualifiers: Hypertension type: essential hypertension Qualified Code(s): I10 - Essential (primary) hypertension Comment/Plan: Stable continue current medication KATERINE-inhibitor, Cardizem with Lasix (7) Leukocytosis Acute D72.829 - ELEVATED WHITE BLOOD CELL COUNT, UNSPECIFIED Qualifiers: Leukocytosis type: bandemia Qualified Code(s): D72.825 - Bandemia Comment/Plan: Noted improving. (8) Tobacco abuse Acute Z72.0 - TOBACCO USE Comment/Plan: Continue discussions regarding smoking cessation. Patient understands the severity of her situation. (9) Gastroesophageal reflux disease Chronic K21.9 - GASTRO-ESOPHAGEAL REFLUX DISEASE WITHOUT ESOPHAGITIS Qualifiers: Esophagitis presence: esophagitis presence not specified Qualified Code(s) : K21.9 - Gastro-esophageal reflux disease without esophagitis Comment/Plan: Proton pump inhibition twice daily (10) Acute respiratory distress Resolved R06.00 - DYSPNEA, UNSPECIFIED Comment/Plan: Improving today. - Plan Patient is slowly improving has a bed at [facility] hopefully can discharge there in the next 24-48 hours Disposition Plan: Patient likely to go to [facility] in the next 2 days Case Care Discussed with: Patient, Nursing Staff Education/Counseling Given To: Patient Education/Counseling Given Regarding: Diagnosis, Treatment, Prognosis, Follow Up , Disposition Plan Total Time: 45 minutes Critical Care: No Couseling Time (>50% in counseling/coordination): No
[2016-11-05] MEDS: LORAZEPAM 1 MG TAB PO PRN ×2 (12:24→20:42)
[2016-11-05] MEDS: CEFTRIAXONE 1 GM in D5W 100 ML IV SCH (12:24)
[2016-11-05] MEDS: PROBIOTIC BLEND TAB PO SCH ×2 (12:28→17:29)
[2016-11-05] MEDS: AZITHROMYCIN 500 MG in D5W 250 ML IV SCH (13:21)
[2016-11-05] MEDS: ENOXAPARIN 40 MG/0.4 ML PFS SQ SCH (17:28)
[2016-11-05] MEDS: MONTELUKAST SODIUM 10 MG TAB PO SCH (20:34)
[2016-11-06] MEDS: IPRATROPIUM 0.02% 2.5 ML NEB NEB SCH ×4 (01:05→20:58)
[2016-11-06] MEDS: LEVALBUTEROL 1.25 MG in 3 ML NEB NEB SCH ×5 (01:11→20:58)
[2016-11-06] MEDS: ZOLPIDEM TARTRATE 5 MG TAB PO PRN (01:33)
[2016-11-06] MEDS ORDERED: SECURA EXTRA PROTECTIVE CREAM TOP ONE (01:44)
[2016-11-06] MEDS: METHYLPREDNISOLONE 125 MG/2 ML VIAL IV SCH ×3 (03:45→19:31)
[2016-11-06] MEDS: PANTOPRAZOLE 40 MG TAB PO SCH (05:36)
[2016-11-06] MEDS: NYSTATIN CREAM 15 GM TUBE TOP SCH ×3 (05:37→19:31)
[2016-11-06] MEDS: FLUTICASONE/SALMETEROL 500/50 DISKUS INH SCH ×2 (07:41→20:58)
[2016-11-06] MEDS: BuPROPion 150 MG SR TAB PO SCH (08:32)
[2016-11-06] MEDS: METOCLOPRAMIDE 10 MG TAB PO SCH ×4 (08:32→19:31)
[2016-11-06] MEDS: FUROSEMIDE 40 MG/4 ML VIAL IV SCH (08:32)
[2016-11-06] MEDS: LISINOPRIL 10 MG TAB PO SCH (08:33)
[2016-11-06 09:17] LABS: ALLEN'S TEST PASS; BEb 19.3 (+/- 2)
[2016-11-06 09:18] LABS: ABG Draw Site Right Radial
--- NOTE | 2016-11-06 10:07 | PCM.PULM ---
Chief Complaint: Patient in bed alert and responsive. Breathing has improved on oxygen via nasal cannula. Has been using BiPAP overnight and staying off the BiPAP most of the day Current complaints: Dyspnea, GARCIA, wheeze,cough. Current medication list reviewed:yes, Events from last night noted and discussed with Clinical Staff - Physical Examination Vital Signs and I&O: Last Vital Signs Temp 98.1 F 11/06/16 08:00 Pulse 124 H 11/06/16 08:00 Resp 20 11/06/16 08:00 BP 140/60 11/06/16 08:00 Pulse Ox 91 11/06/16 08:00 Oxygen Pulse Oxygen Saturation 91 O2 Device Nasal Cannula Oxygen Flow Rate 2 Fraction of Inspired Oxygen ( 30 FIO2) Intake & Output 11/03/16 11/04/16 11/05/16 11/06/16 23:59 23:59 23:59 23:59 Intake Total 1405 2604 1216 300 Output Total 3050 2850 3590 1400 Balance -6554 -169 -4144 -5817 Patient's weight 65.589 kg 65.091 kg 66.224 kg 66.043 kg General: Alert, Oriented x3, Cooperative, No acute distress, Fatigue Respiratory: Diminished, Rhonchi, Wheezes Cardiovascular: Regular rate, Regular rate and rhythm, Normal S1, No Gallops, Rubs/Murmurs, Normal S2 GI: Normal bowel sounds, Soft, Non tender, No hepatospenomegaly, No masses Extremities/Musculoskeletal: Normal pulses Skin: Warm,Dry and Intact, No rashes, No breakdown, No significant lesion Neurological: Normal speech, Normal tone, Cranial nerves 3-12 NL Psych/Mental Status: Appropriate, Cooperative Result Diagrams: 11/04/16 04:55 11/04/16 04:55 Labs (last 24 hours): Laboratory Results - last 24 hr 11/06/16 09:11 Puncture Site Right radial pH 7.430 pCO2 72.0 H* pO2 67.0 L HCO3 47.8 H Total CO2 50.0 H Base Excess 19.3 H FiO2 % 2 lpmnc Specimen Drawn By [facility] Lab/DI/Studies Reviewed: EKG: NSR to sinus tachycardia at rate of 110/min, No ST wave changes noted Cxray: 1 view 11/04/16 Hyperinflation and interstitial thickening, most consistent with chronic bronchitis/COPD. No acute superimposed process. Medications: Acetaminophen (Tylenol Suppository) 325 mg [place] Q6H PRN; Protocol PRN Reason: Mild Pain or Fever above 100.4 Stop: 11/06/16 16:59 Acetazolamide (Diamox) 500 mg PO MoWeFr@0900 [facility] Stop: 11/07/16 08:59 Last Admin: 10/31/16 09:11 Dose: 500 mg Albuterol (Proventil, Ventolin) 3 ml NEB Q2H PRN PRN Reason: Wheezing Stop: 11/06/16 16:59 Last Admin: 10/30/16 11:37 Dose: 3 ml Benzonatate (Tessalon) 200 mg PO Q8H PRN PRN Reason: Cough - First Option Stop: 11/06/16 16:59 Zolpidem Tartrate (Ambien) 5 mg PO 2100,2200 PRN PRN Reason: Sleep or Insomnia Stop: 11/06/16 16:59 Last Admin: 10/30/16 20:43 Dose: 5 mg Acetaminophen (Tylenol Tablet) 325 mg PO Q6H PRN; Protocol PRN Reason: Mild Pain or Fever above 100.4 Stop: 11/06/16 16:59 Fluticasone/Salmeterol (Advair 500/50) 1 puff INH RTBID [facility] Stop: 11/06/16 19:59 Last Admin: 11/03/16 08:09 Dose: Not Given Bupropion HCl (Wellbutrin-Sr) 150 mg PO DAILY [facility] Stop: 11/10/16 16:59 Last Admin: 10/31/16 09:11 Dose: 150 mg Chlorphenir/Hydrocodone Polistirex (Tussionex) 5 ml PO BID PRN PRN Reason: Cough - Alternative Stop: 11/06/16 16:59 Enoxaparin Sodium (Lovenox) 40 mg SQ Q24H [facility] Stop: 11/06/16 17:59 Last Admin: 10/30/16 17:34 Dose: 40 mg Lact Acid/Bifidobact/Lact [place]/Streptoc Th (Wendie Q) 1 tab PO BIDLS [facility] Stop: 11/06/16 16:59 Last Admin: 10/30/16 17:34 Dose: 1 tab Lisinopril (Zestril) 10 mg PO DAILY [facility] Stop: 11/06/16 09:59 Last Admin: 10/31/16 09:11 Dose: 10 mg Lorazepam (Ativan) 1 mg PO TID PRN PRN Reason: Anxiety Stop: 11/12/16 18:44 Last Admin: 10/31/16 06:17 Dose: 1 mg Metoclopramide HCl (Reglan) 10 mg IV Q6H PRN PRN Reason: Nausea/Vomiting - First Option Stop: 11/06/16 16:59 Montelukast Sodium (Singulair) 10 mg PO HS [facility] Stop: 11/06/16 20:59 Last Admin: 10/30/16 20:34 Dose: 10 mg Nitroglycerin (Ntg (Nitrostat Sublingual Tab)) 0.4 mg SL Q5M PRN PRN Reason: Chest Pain or Discomfort Stop: 11/06/16 09:18 Pantoprazole Sodium (Protonix) 40 mg PO 0600 [facility] Stop: 11/06/16 09:59 Last Admin: 10/31/16 05:57 Dose: 40 mg Promethazine HCl (Phenergan) 12.5 mg IV Q6H PRN; Protocol PRN Reason: Nausea/Vomiting - Alternative Stop: 11/06/16 16:59 Fluticasone/Salmeterol (Advair 500/50) 1 puff INH RTBID [facility] Stop: 11/06/16 19:59 Last Admin: 10/31/16 08:17 Dose: Not Given Diltiazem HCl (Cardizem Cd) 300 mg PO DAILY [facility] Stop: 11/20/16 16:59 Furosemide (Lasix) 40 mg PO DAILY@0800 [facility] Stop: 11/21/16 07:59 Methylprednisolone Sodium Succinate (Solu-Medrol) 60 mg IV Q12 [facility] Stop: 11/20/16 16:59 Levalbuterol HCl (Xopenex 1.25 Mg) 1.25 mg NEB RTQ6 [facility] Stop: 11/15/16 13:59 Last Admin: 11/06/16 07:27 Dose: 1.25 mg Levalbuterol HCl (Xopenex 0.63 Mg) 0.63 mg NEB Q2H PRN PRN Reason: Wheezing Stop: 11/20/16 16:59 Diltiazem HCl (Cardizem Cd) 300 mg PO NOW ONE Stop: 11/06/16 09:55 - Assessment/Plan (1) Acute exacerbation of chronic obstructive airways disease Acute J44.1 - CHRONIC OBSTRUCTIVE PULMONARY DISEASE W (ACUTE) EXACERBATION Comment/Plan: Patient has been improving specially in the past couple of days according to the notes I would continue the BiPAP on this patient at nighttime for respiratory failure even when she goes home continue the supportive care with IV antibiotics steroids DVT and GI prophylaxis oxygen prognosis remains guarded would follow the patient closely continue IV steroids at this time however would try to cut them slowly I would continue antibiotics to complete at least 14days (2) Acute respiratory failure Acute J96.00 - ACUTE RESPIRATORY FAILURE, UNSP W HYPOXIA OR HYPERCAPNIA hypercapnia J96.02 - Acute respiratory failure with hypercapnia Comment/Plan: Slowly improving. Would continue BIPAP 20/10, IV Solu- Medrol, oxygen prn and DVT/GI prophylaxis. Would continue full supportive care and keep patient on monitored floor. (3) Bronchopneumonia Acute J18.0 - BRONCHOPNEUMONIA, UNSPECIFIED ORGANISM Comment/Plan: Continue IV antibiotics (4) Hypoxia Acute R09.02 - HYPOXEMIA Comment/Plan: Continue the current treatment with BIPAP PRN and oxygen I personally saw and evaluated the patient.: Yes Case Care Discussed with: Patient, Family Education/Counseling Given To: Patient, Family Member Education/Counseling Given Regarding: Diagnosis, Treatment, Prognosis, Follow Up , Disposition Plan
[2016-11-06] MEDS: LORAZEPAM 1 MG TAB PO PRN ×2 (11:22→19:31)
[2016-11-06] MEDS: PROBIOTIC BLEND TAB PO SCH ×2 (11:23→17:28)
[2016-11-06] MEDS: CEFTRIAXONE 1 GM in D5W 100 ML IV SCH (11:23)
[2016-11-06] MEDS: AZITHROMYCIN 500 MG in D5W 250 ML IV SCH (12:57)
[2016-11-06] MEDS: ENOXAPARIN 40 MG/0.4 ML PFS SQ SCH (17:28)
--- NOTE | 2016-11-06 18:04 | GENMEDPROG ---
Subjective Note: Patient significantly improved today became anxious at the thought of discharge. We are unable to discharge her to skilled facility today because her approval has and we need to get another approval from her insurance company. Notes Reviewed: Yes Events from last night noted and discussed with Clinical Staff Current Medication List: Reviewed Currently: Reports: Cough, GARCIA, SOB. Denies: Constipation, Diarrhea, Nausea and Vomiting, Abdominal Pain, Fever/Chills, Chest Pain DVT Prophylaxis: Yes - Physical Examination Vital Signs and I&O: Last Vital Signs Temp 98.2 F 11/06/16 15:21 Pulse 100 11/06/16 15:21 Resp 22 11/06/16 15:21 BP 140/58 L 11/06/16 15:21 Pulse Ox 91 11/06/16 15:21 Oxygen Pulse Oxygen Saturation 91 O2 Device Nasal Cannula Oxygen Flow Rate 2 Fraction of Inspired Oxygen ( 30 FIO2) Intake & Output 11/03/16 11/04/16 11/05/16 11/06/16 23:59 23:59 23:59 23:59 Intake Total 1405 2604 1216 540 Output Total 3050 2850 3590 2050 Balance -9411 -477 -7754 -2000 Patient's weight 65.589 kg 65.091 kg 66.224 kg 66.043 kg General: Alert, Oriented x3, No acute distress HEENT: Normal (Normocephalic, atraumatic;EOMI.Sclera white, Nares patent, without discharge or bleeding. No oropharyngeal lesions or erythema. Mucous membranes are dry.) Neck: Non-tender, Full range of motion, Normal Trachea alignment, Normal inspection (No cervical lymphadenopathy. No supraclavicular lymphadenopathy.), No Masses palpable, Supple Lymphatics: Normal (No cervical lymphadenopathy. No supraclavicular lymphadenopathy.) Respiratory: Diminished, Wheezes (Chronic), Other. negative: Rales, Rhonchi, Tachypnea Cardiovascular: Regular rate and rhythm (No bradycardia or tachycardia), Normal S1, No Gallops,Rubs/Murmurs, Normal S2, Good Pedal Pulses (DP pulses 2+ bilaterally) GI: Normal bowel sounds (normal active sounds), Soft (non-distended), Non tender , No hepatospenomegaly, No masses Extremities/Musculoskeletal: Normal pulses (DP pulses 2+ bilaterally) Skin: Warm,Dry and Intact, No rashes, No significant lesion Neurological: Strength at 5/5 X4 ext (Motor 5/5 throughout.), Normal tone, Cranial nerves 3-12 NL ( 2-12 grossly intact.) Psych/Mental Status: Appropriate, Normal Affect Lab/DI/Studies Reviewed: Abnormal Lab Results 11/06/16 09:11 pCO2 72.0 H* pO2 67.0 L HCO3 47.8 H Total CO2 50.0 H Base Excess 19.3 H - Assessment (1) Acute respiratory failure Acute J96.00 - ACUTE RESPIRATORY FAILURE, UNSP W HYPOXIA OR HYPERCAPNIA Qualifiers: Respiratory failure complication: hypercapnia Qualified Code(s): J96.02 - Acute respiratory failure with hypercapnia Comment/Plan: Continues to improve. Await approval for halfway facility. (2) Hypokalemia Acute E87.6 - HYPOKALEMIA Comment/Plan: supplement; patient will need daily potassium repletion (3) Diastolic CHF Chronic I50.30 - UNSPECIFIED DIASTOLIC (CONGESTIVE) HEART FAILURE Qualifiers: Congestive heart failure chronicity: chronic Qualified Code(s): I50.32 - Chronic diastolic (congestive) heart failure Comment/Plan: She is on oral diuretic compensated continue current medication. (4) Hyponatremia Acute E87.1 - HYPO-OSMOLALITY AND HYPONATREMIA Comment/Plan: Slightly better today. IV fluids and Lasix were administered. (5) Acute exacerbation of chronic obstructive airways disease Acute J44.1 - CHRONIC OBSTRUCTIVE PULMONARY DISEASE W (ACUTE) EXACERBATION Comment/Plan: IV antibiotics probiotics and steroids are ordered with nebulizer therapy. (6) Hypertension Chronic I10 - ESSENTIAL (PRIMARY) HYPERTENSION Qualifiers: Hypertension type: essential hypertension Qualified Code(s): I10 - Essential (primary) hypertension Comment/Plan: Stable continue current medication KATERINE-inhibitor, Cardizem with Lasix (7) Leukocytosis Acute D72.829 - ELEVATED WHITE BLOOD CELL COUNT, UNSPECIFIED Qualifiers: Leukocytosis type: bandemia Qualified Code(s): D72.825 - Bandemia Comment/Plan: Noted improving. (8) Tobacco abuse Acute Z72.0 - TOBACCO USE Comment/Plan: Continue discussions regarding smoking cessation. Patient understands the severity of her situation. (9) Gastroesophageal reflux disease Chronic K21.9 - GASTRO-ESOPHAGEAL REFLUX DISEASE WITHOUT ESOPHAGITIS Qualifiers: Esophagitis presence: esophagitis presence not specified Qualified Code(s) : K21.9 - Gastro-esophageal reflux disease without esophagitis Comment/Plan: Proton pump inhibition twice daily (10) Acute respiratory distress Resolved R06.00 - DYSPNEA, UNSPECIFIED Comment/Plan: Improving today. - Plan Overall significantly improved. Stable for discharge to skilled facility when bed available. Medical team conference was held on the patient discussion of diagnosis treatments plans and prognosis as well as disposition. In addition to myself the following team members were present nursing, physical therapy, speech therapy, occupational therapy, case management, social work, nutrition, granite polisher machine , palliative care, and home health nursing. Input from each discipline was recieved and is incorporated in the plan of care in the medical record as well as in the plans in the progress notes. Disposition Plan: Patient likely to go to [facility] in the next 2 days Case Care Discussed with: Patient, Nursing Staff, Resource Management, Speech Therapy, Stacker Driver Education/Counseling Given To: Patient Education/Counseling Given Regarding: Diagnosis, Treatment, Prognosis, Follow Up , Disposition Plan Total Time: 45 min Critical Care: No Couseling Time (>50% in counseling/coordination): No
[2016-11-06] MEDS: MONTELUKAST SODIUM 10 MG TAB PO SCH (19:31)
[2016-11-07] MEDS: IPRATROPIUM 0.02% 2.5 ML NEB NEB SCH ×3 (01:55→13:50)
[2016-11-07] MEDS: LEVALBUTEROL 0.63 MG IN 3 ML NEB NEB PRN ×2 (01:56→11:18)
[2016-11-07] MEDS: LEVALBUTEROL 1.25 MG in 3 ML NEB NEB SCH ×3 (01:56→13:43)
[2016-11-07] MEDS: LORAZEPAM 2 MG/ML VIAL IV PRN (02:02)
[2016-11-07 04:03] VITALS: BMI 24.4
[2016-11-07 05:36] LABS: ALLEN'S TEST PASS
[2016-11-07 05:37] LABS: BEb 20.4 (+/- 2); TCO2 51.1 MMOL/L (23-27)
[2016-11-07 05:43] LABS: ABG Draw Site Right Radial; BI-PAP 18/8 cm H2O
[2016-11-07] MEDS: NYSTATIN CREAM 15 GM TUBE TOP SCH ×2 (06:01→12:39)
[2016-11-07] MEDS: PANTOPRAZOLE 40 MG TAB PO SCH (06:01)
[2016-11-07] MEDS ORDERED: FUROSEMIDE 40 MG TAB PO SCH (08:00)
[2016-11-07] MEDS: FLUTICASONE/SALMETEROL 500/50 DISKUS INH SCH (08:09)
[2016-11-07] MEDS: METHYLPREDNISOLONE 125 MG/2 ML VIAL IV SCH (08:19)
[2016-11-07] MEDS: METOCLOPRAMIDE 10 MG TAB PO SCH ×2 (08:19→12:39)
[2016-11-07] MEDS: BuPROPion 150 MG SR TAB PO SCH (08:20)
[2016-11-07] MEDS: LISINOPRIL 10 MG TAB PO SCH (08:20)
[2016-11-07] MEDS: ACETAZOLAMIDE 250 MG TAB PO SCH (08:20)
[2016-11-07] MEDS: LORAZEPAM 1 MG TAB PO PRN ×2 (08:21→12:39)
[2016-11-07 09:05] VITALS: TEMP 98
--- NOTE | 2016-11-07 09:24 | PCM.PULM ---
Chief Complaint: Patient is feeling better today. On BIPAP at night. Current complaints: Dyspnea,GARCIA. Current medication list reviewed:yes Notes reviewed:yes, Events from last night noted and discussed with Clinical Staff - Physical Examination Vital Signs and I&O: Last Vital Signs Temp 98.4 F 11/07/16 08:00 Pulse 89 11/07/16 08:14 Resp 22 11/07/16 08:00 BP 131/51 L 11/07/16 08:00 Pulse Ox 94 11/07/16 08:00 Oxygen Pulse Oxygen Saturation 94 O2 Device Nasal Cannula Oxygen Flow Rate 2 Fraction of Inspired Oxygen ( 30 FIO2) Intake & Output 11/04/16 11/05/16 11/06/16 11/07/16 23:59 23:59 23:59 23:59 Intake Total 2604 1216 540 Output Total 2850 1760 2250 900 Balance -420 -2374 -1710 -900 Patient's weight 65.091 kg 66.224 kg 66.043 kg 66.587 kg General: Alert, Oriented x3, No acute distress, Fatigue Respiratory: Diminished (bilaterally), Wheezes Cardiovascular: Regular rate, Regular rate and rhythm, Normal S1, No Gallops, Rubs/Murmurs, Normal S2 GI: Normal bowel sounds, Soft, Non tender, No hepatospenomegaly, No masses Extremities/Musculoskeletal: Normal pulses Skin: Warm,Dry and Intact, No rashes, No breakdown Neurological: Normal speech, Cranial nerves 3-12 NL Psych/Mental Status: Normal Affect, Cooperative Result Diagrams: 11/04/16 04:55 11/04/16 04:55 Labs (last 24 hours): Laboratory Results - last 24 hr 11/07/16 05:25 Puncture Site Right radial pH 7.440 pCO2 72.0 H* pO2 74.0 L HCO3 48.9 H Total CO2 51.1 H Base Excess 20.4 H FiO2 % 30 Mode BiPAP 18/ Specimen Drawn By [place] Lab/DI/Studies Reviewed: EKG: NSR, NO ST or ST wave changes noted Medications: Acetaminophen (Tylenol Suppository) 325 mg NJ Q6H PRN; Protocol PRN Reason: Mild Pain or Fever above 100.4 Stop: 11/06/16 16:59 Acetazolamide (Diamox) 500 mg PO MoWeFr@0900 LORRI Stop: 11/07/16 08:59 Last Admin: 10/31/16 09:11 Dose: 500 mg Levalbuterol HCl (Xopenex 1.25 Mg) 1.25 mg NEB RTQ6 [facility] Stop: 11/15/16 13:59 Last Admin: 11/01/16 14:09 Dose: 1.25 mg Diltiazem HCl (Cardizem Cd) 300 mg PO DAILY [facility] Stop: 11/20/16 16:59 Furosemide (Lasix) 40 mg PO DAILY@0800 LORRI Stop: 11/21/16 07:59 Methylprednisolone Sodium Succinate (Solu-Medrol) 60 mg IV Q12 L[facility]RI Stop: 11/20/16 16:59 Levalbuterol HCl (Xopenex 1.25 Mg) 1.25 mg NEB RTQ6 [facility] Stop: 11/15/16 13:59 Last Admin: 11/06/16 07:27 Dose: 1.25 mg Albuterol (Proventil, Ventolin) 3 ml NEB Q2H PRN PRN Reason: Wheezing Stop: 11/06/16 16:59 Last Admin: 10/30/16 11:37 Dose: 3 ml Benzonatate (Tessalon) 200 mg PO Q8H PRN PRN Reason: Cough - First Option Stop: 11/06/16 16:59 Acetaminophen (Tylenol Tablet) 325 mg PO Q6H PRN; Protocol PRN Reason: Mild Pain or Fever above 100.4 Stop: 11/06/16 16:59 Albuterol/Ipratropium (Duoneb) 3 ml NEB RTQ6 [facility] Stop: 11/06/16 16:59 Last Admin: 10/31/16 08:16 Dose: 3 ml Bupropion HCl (Wellbutrin-Sr) 150 mg PO DAILY [facility] Stop: 11/10/16 16:59 Last Admin: 10/31/16 09:11 Dose: 150 mg Chlorphenir/Hydrocodone Polistirex (Tussionex) 5 ml PO BID PRN PRN Reason: Cough - Alternative Stop: 11/06/16 16:59 Enoxaparin Sodium (Lovenox) 40 mg SQ Q24H [facility] Stop: 11/06/16 17:59 Last Admin: 10/30/16 17:34 Dose: 40 mg Lact Acid/Bifidobact/Lact [place]/Streptoc Th (Wendie Q) 1 tab PO BIDLS [facility] Stop: 11/06/16 16:59 Last Admin: 10/30/16 17:34 Dose: 1 tab Lisinopril (Zestril) 10 mg PO DAILY [facility] Stop: 11/06/16 09:59 Last Admin: 10/31/16 09:11 Dose: 10 mg Lorazepam (Ativan) 1 mg PO TID PRN PRN Reason: Anxiety Stop: 11/12/16 18:44 Last Admin: 10/31/16 06:17 Dose: 1 mg Metoclopramide HCl (Reglan) 10 mg IV Q6H PRN PRN Reason: Nausea/Vomiting - First Option Stop: 11/06/16 16:59 Montelukast Sodium (Singulair) 10 mg PO HS [facility] Stop: 11/06/16 20:59 Last Admin: 10/30/16 20:34 Dose: 10 mg Nitroglycerin (Ntg (Nitrostat Sublingual Tab)) 0.4 mg SL Q5M PRN PRN Reason: Chest Pain or Discomfort Stop: 11/06/16 09:18 Pantoprazole Sodium (Protonix) 40 mg PO 0600 [facility] Stop: 11/06/16 09:59 Last Admin: 10/31/16 05:57 Dose: 40 mg Promethazine HCl (Phenergan) 12.5 mg IV Q6H PRN; Protocol PRN Reason: Nausea/Vomiting - Alternative Stop: 11/06/16 16:59 Fluticasone/Salmeterol (Advair 500/50) 1 puff INH RTBID [facility] Stop: 11/06/16 19:59 Last Admin: 10/31/16 08:17 Dose: Not Given - Assessment/Plan (1) Acute exacerbation of chronic obstructive airways disease Acute J44.1 - CHRONIC OBSTRUCTIVE PULMONARY DISEASE W (ACUTE) EXACERBATION (2) Acute respiratory failure Acute J96.00 - ACUTE RESPIRATORY FAILURE, UNSP W HYPOXIA OR HYPERCAPNIA hypercapnia J96.02 - Acute respiratory failure with hypercapnia (3) Bronchopneumonia Acute J18.0 - BRONCHOPNEUMONIA, UNSPECIFIED ORGANISM (4) Hypoxia Acute R09.02 - HYPOXEMIA
--- NOTE | 2016-11-07 11:21 | PCM.DCS92 ---
- Final/Secondary Discharge Diagnosis (1) Acute respiratory failure Acute J96.00 - ACUTE RESPIRATORY FAILURE, UNSP W HYPOXIA OR HYPERCAPNIA Present on Admission: Yes hypercapnia J96.02 - Acute respiratory failure with hypercapnia Comment: Continues to improve. Await approval for [facility] facility. (2) Hypokalemia Acute E87.6 - HYPOKALEMIA Present on Admission: Yes Comment: supplement; patient will need daily potassium repletion (3) Community acquired bacterial pneumonia Deleted J15.9 - UNSPECIFIED BACTERIAL PNEUMONIA Present on Admission: Yes Comment: Zosyn Levaquin ordered with probiotic. Patient will require 10 days total of therapy. (4) Diastolic CHF Chronic I50.30 - UNSPECIFIED DIASTOLIC (CONGESTIVE) HEART FAILURE Present on Admission: Yes chronic I50.32 - Chronic diastolic (congestive) heart failure Comment: She is on oral diuretic compensated continue current medication. (5) Hyponatremia Acute E87.1 - HYPO-OSMOLALITY AND HYPONATREMIA Present on Admission: Yes Comment: Slightly better today. IV fluids and Lasix were administered. (6) Acute exacerbation of chronic obstructive airways disease Acute J44.1 - CHRONIC OBSTRUCTIVE PULMONARY DISEASE W (ACUTE) EXACERBATION Present on Admission: Yes Comment: IV antibiotics probiotics and steroids are ordered with nebulizer therapy. (7) Hypertension Chronic I10 - ESSENTIAL (PRIMARY) HYPERTENSION Present on Admission: Yes essential hypertension I10 - Essential (primary) hypertension Comment: Stable continue current medication KATERINE-inhibitor, Cardizem with Lasix (8) Leukocytosis Acute D72.829 - ELEVATED WHITE BLOOD CELL COUNT, UNSPECIFIED Present on Admission: Yes bandemia D72.825 - Bandemia Comment: Noted improving. (9) Tobacco abuse Acute Z72.0 - TOBACCO USE Comment: Continue discussions regarding smoking cessation. Patient understands the severity of her situation. (10) Gastroesophageal reflux disease Chronic K21.9 - GASTRO-ESOPHAGEAL REFLUX DISEASE WITHOUT ESOPHAGITIS Present on Admission: Yes esophagitis presence not specified K21.9 - Gastro-esophageal reflux disease without esophagitis Comment: Proton pump inhibition twice daily (11) Acute respiratory distress Resolved R06.00 - DYSPNEA, UNSPECIFIED Present on Admission: Yes Comment: Improving today. Discharge Disposition: Care Home Facility Discharge Condition: Improved Fuctional Discharge Status: Walker Assistance Physician Follow up/Referrals: Carolyn Morgan MD [Primary Care Provider] - F/U Facility Physician Ulysses Armenta MD [Staff Physician] - Hospital to call w/ appt. (Hospital to call for appointment with Dr. Armenta in 1.5 weeks) New Prescriptions: Acetazolamide [Diamox] 500 mg PO MoWeFr@0900 #20 tablet Azithromycin [Zithromax Tri-Torrey] 500 mg PO DAILY #3 tablet BuPROPion (BID formulation) [Wellbutrin-Sr] 150 mg PO DAILY #30 tab.sr.12h Cefdinir [Omnicef] 300 mg PO BID #10 cap Diltiazem HCl [Cardizem Cd] 300 mg PO DAILY #30 capsule.cr Furosemide [Lasix] 40 mg PO DAILY@0800 #30 tablet Ipratropium [Atrovent] 2.5 ml NEB RTQ6 #120 nebu Levalbuterol [Xopenex 0.63 mg] 0.63 mg NEB Q2H PRN #100 nebu PRN Reason: Wheezing Levalbuterol [Xopenex 1.25 mg] 1.25 mg NEB RTQ6 #120 nebu Lisinopril [Prinivil] 10 mg PO DAILY #30 tablet Lorazepam [Ativan] 0.5 mg PO TID PRN #30 tablet PRN Reason: Anxiety Metoclopramide HCl [Reglan] 10 mg PO QID #100 tablet Montelukast Sodium [Singulair] 10 mg PO HS #30 tablet Nitroglycerin Sublingual Tab [NTG (NitroStat Sublingual Tab)] 0.4 mg SL Q5MX3 PRN #100 tablet PRN Reason: Chest Pain Or Discomfort Nystatin [Mycostatin] 15 gm TOP TID #1 tube Prednisone [Deltasone, Orasone] 20 mg PO BID #30 tab Probiotic Blend [Wendie Q] 1 tab PO BIDLS #60 tablet Zolpidem Tartrate [Ambien] 5 mg PO 2100,2200 PRN #60 tablet PRN Reason: Sleep Or Insomnia O2 Device: Nasal Cannula Oxygen to be used after Discharge: Continuous Diet at Discharge: As Tolerated, Cardiac, Heart Healthy Activity: As Tolerated Discontinue use of:: Alcohol, All Types of Tobacco - DC Summary Notes HPI/Notes: Patient very pleasant 71-year-old white female lives at home with her who comes into the emergency room today with increased shortness breath over the past 3 days complaining of chills and was unable to sleep last night due to shortness breath. She also has a history of diastolic CHF and has to sleep on 3 pillows. Unfortunately she still smokes cigarettes and states that still smoke a pack a month. She tells me that the Chantix is been the most effective item she has used to help her quit smoking. She has not taking any Chantix for several months. She has a history of diastolic CHF in addition to severe his COPD. Hospital Course Note:: Discharge summary on patient named MAYANK PIZARRO admitted to [facility] on 10/23/16 by Get Dover MD. Date of discharge is 2016. Patient was admitted with severe COPD exacerbation respiratory failure and pneumonia requiring continuous BiPAP for several days. She has emphysema causing her respiratory failure compound by the pneumonia. Unfortunately she smokes a but indicated she would be interested in quitting post discharge. Initial IV antibiotics included Zosyn and Levaquin which were switched to Rocephin Zithromax by Dr. Armenta after not improving with the former two. Gradually over the ensuing days she became stronger less short of breath gradually weaning herself off of the BiPAP but still requiring frequent nebulizer therapy. She has completed 2 weeks worth of IV antibiotics as recommended by Dr. Armenta. Follow up with him in the next 2 weeks. CC: Dr. Richy Armenta Total Time: 41 MIN Code: 39826 (>30min.) - Physical Exam Vital Signs: Last Vital Signs Temp 98.4 F 11/07/16 08:00 Pulse 103 11/07/16 10:32 Resp 22 11/07/16 08:00 BP 131/51 L 11/07/16 08:00 Pulse Ox 94 11/07/16 08:00 Oxygen Pulse Oxygen Saturation 94 O2 Device Nasal Cannula Oxygen Flow Rate 2 Fraction of Inspired Oxygen ( 30 FIO2) Constitutional: Alert, Distress, Restless Oriented to: Time, Person, Place - HEENT Head: Normal (normocephalic, atraumatic.), Other (No cervical lymphadenopathy. No supraclavicular lymphadenopathy. Neck: No palpable mass, supple , trachea midline.) Eye: Normal (pupils equal, reactive to light, and round; EOMI, Sclera white) Oropharynx: Normal (Pharynx: Moist without exudate,Gums-no swelling, No oropharyngeal lesions or erythema, Mucous membranes are dry.) ENT EAC: Normal (No oropharyngeal lesions or erythema. Mucous membranes are dry. ) TMJ: Normal Nose: No Symptoms Reported (septum midline, Nares patent, without discharge or bleeding.) - Respiratory/Cardiovascular Respiratory: Diminished, Wheezes (Chronic), Other. negative: Rales, Rhonchi, Tachypnea - GI Auscultation: Normal (normal active sounds) Palpation: Normal (Soft,non distended,nontender. No hepatosplenomegaly.) Tenderness: Non tender (No rebound or guarding) Patel's Sign: Negative - Musculoskeletal Back: Normal (Non-Tender) Extremities: Normal (Normal tone, DP pulses 2+ bilaterally, No cyanosis or edema bilaterally, FROM bilaterally.) - Integumentary Lymphatics: Normal (No cervical lymphadenopathy. No supraclavicular lymphadenopathy.) - Neurologic Memory Impaired: Normal Cerebellar: Normal. negative: Ataxia, Past-Pointing, Tremor Mood Description: Normal (Fully oriented. Normal and appropriate affect.) Thought: Coherent Perception: Normal (Normal and appropriate affect.)
[2016-11-07] MEDS: AZITHROMYCIN 500 MG in D5W 250 ML IV SCH (11:49)
[2016-11-07] MEDS: CEFTRIAXONE 1 GM in D5W 100 ML IV SCH (11:49)
[2016-11-07] MEDS ORDERED: PREDNISONE 20 MG TAB PO SCH (12:00)
[2016-11-07 12:12] VITALS: PULSE 107
[2016-11-07 12:27] VITALS: BP 135/50; TEMP 97.5
[2016-11-07] MEDS: PROBIOTIC BLEND TAB PO SCH (12:39)
== END 2016-11-07 14:43 | DRG 189 ==
LOC: ED 06:19 → PCU 07:31
PROVIDERS: ADMIT Internal Medicine; ATTEND Hospitalist
PROC: 5A09357 Assistance with Respiratory Ventilation, Less than 24 Consecutive Hours, Continuous Positive Airway Pressure (ICD-10-PCS; principal; 2016-10-23)
PROC: 03983ZZ Drainage of Left Brachial Artery, Percutaneous Approach (ICD-10-PCS; 2016-10-23)
DX: J96.22 Acute and chronic respiratory failure with hypercapnia (principal); J15.9 Unspecified bacterial pneumonia; I11.0 Hypertensive heart disease with heart failure; I50.32 Chronic diastolic (congestive) heart failure; E87.1 Hypo-osmolality and hyponatremia; J44.1 Chronic obstructive pulmonary disease with (acute) exacerbation; Z66 Do not resuscitate; J96.21 Acute and chronic respiratory failure with hypoxia; F17.200 Nicotine dependence, unspecified, uncomplicated; J45.909 Unspecified asthma, uncomplicated; K21.9 Gastro-esophageal reflux disease without esophagitis; Z79.899 Other long term (current) drug therapy; D72.825 Bandemia; Z71.6 Tobacco abuse counseling; E87.6 Hypokalemia; I25.2 Old myocardial infarction
CPT/HCPCS: 36415; 36600; 71010; 71275; 80048; 80053; 81001; 82272; 82550; 82803; 83605; 83735; 83880; 84443; 84484; 85007; 85025; 85027; 85610; 85730; 87040; 87086; 87493; 87804; 93005; 94640; 94660; 96365; 96372; 96375; 98960; 99284; 99406; A9698; G0237; J0456; J0696; J1120; J1650; J1940; J1956; J2060; J2543; J2930; J3480; J3490; J7040; J7060; J7070; J7614; J7620